=== PATIENT | female | born 1990 | race Caucasian/White ===

== ENCOUNTER → 2017-09-23 | Outpatient (CLI) | payer MEDICAID, SELFPAY | PROVIDERS: Visit Provider Emergency Medicine | DX: Z79.899 Other long term (current) drug therapy (principal) | CPT/HCPCS: 80305; 80364 ==

== ENCOUNTER → 2017-10-16 11:59 | Outpatient (REF) | payer MEDICAID, SELFPAY ==
[2017-10-16 16:41] LABS: Amphetamine/Metha Screen,Urine Positive ng/mL (<1000); Barbiturates Screen,Urine Negative ng/mL (<200); Benzodiazepines Screen,Urine Positive ng/mL (200); Cannabinoid Screen,Urine Negative ng/mL (<50); Cocaine Screen,Urine Positive ng/g (<300); Methadone Screen,Urine Negative ng/mL (<300); Opiate Screen,Urine Positive ng/mL (<300); Phencyclidine Screen,Urine Negative ng/mL (<25)
== END ==
LOC: LAB 11:59
PROVIDERS: Visit Provider Emergency Medicine
DX: Z79.891 Long term (current) use of opiate analgesic (principal)
CPT/HCPCS: 80305

== ENCOUNTER → 2017-10-30 16:39 | Outpatient (REF) | payer MEDICAID, SELFPAY | LOC: LAB 16:39 | PROVIDERS: Visit Provider Emergency Medicine | DX: L98.9 Disorder of the skin and subcutaneous tissue, unspecified (principal) | CPT/HCPCS: 87070; 87077; 87186; 87205 ==

== ENCOUNTER 2017-11-06 15:27 | Inpatient (IN) | payer MEDICAID, SELFPAY ==
[2017-11-06 16:01] VITALS: BP 123/74; PULSE 83; RESP 20; TEMP 36.4; O2SAT 99; BMI 23.7
[2017-11-06 18:15] LABS: Basophils % 0.5 % (0.1-2.0); Eosinophils # 0.5 K/mm3 (0.0-0.4); Eosinophils % 8.7 % (0.1-12.0); Hematocrit 45.8 % (37.0-47.0); Hemoglobin 14.6 g/dL (12.2-16.2); Lymphocytes % 39.7 K/mm3 (10-50); Mean Corpuscular HGB Conc 31.8 g/dL (31.8-35.4); Mean Corpuscular Volume 97.5 fl (81-99); Mean Platelet Volume 9.1 fl (7.4-10.4); Monocytes # 0.4 K/mm3 (0.1-1.0); Monocytes % 8.3 % (1.7-9.3); Neutrophils # 2.2 K/mm3 (1.8-7.8); Neutrophils % 42.8 % (37.0-80.0); Platelet Count 227 K/mm3 (142-424); Red Blood Count 4.69 M/mm3 (4.20-5.40); Red Cell Distribution Width 14.6 % (11.5-17.5); White Blood Count 5.1 K/mm3 (4.8-10.8)
[2017-11-06 18:17] LABS: Blood Urea Nitrogen 6 mg/dL (7-18); Carbon Dioxide 29 mmol/L (21.0-32.0); Creatinine Clearance Estimated 137 mL/min (0-300); Creatinine,Serum 0.55 mg/dL (0.55-1.02); Estimated Glomerular Filt Rate 132 ml/min (>60); GFR (African American) 159 ML/MIN (>60); Glucose 111 mg/dL (74-106)
[2017-11-06 19:03] LABS: Anion Gap 10.1 mEq/L (5-15); Chloride 103 mmol/L (98-107); Potassium 4.1 mmoL/L (3.5-5.1); Sodium 138 mmol/L (136-145)
--- NOTE | 2017-11-06 19:03 | PC.NURSE ---
Bedside report given to Sunita Urban RN
[2017-11-06 20:00] VITALS: BP 120/63; PULSE 64; RESP 18; TEMP 36.7; O2SAT 97
--- NOTE | 2017-11-07 03:25 | PC.NURSE ---
LAYING IN BED RESTING AT THIS TIME. SIGNIFICANT OTHER AT BEDSIDE. HAS HAD MORPHINE ONE TIME THUS FAR INTO SHIFT. PATIENT AND MALE FRIEND HAVE BEEN INTO THE [facility] REQUESTING DRINKS AND SNACKS SEVERAL TIMES. HAS BEEN SLEEPING THE LAST ROUNDS. LUNGS ARE CLEAR, RESP EVEN AND NONLABORED. HAS NOT COMPLAINED OF PAIN SINCE THE DOSE OF MORPHINE. IV IS PATENT, DENIED ANY NEEDS AT THIS TIME. BED LOCKED IN LOW POSITION, SIDE RALES UP X 2. CALL LIGHT WITHIN REACH. ENCOURAGED TO CALL OUT IF NEEDS. WILL CONTINUE TO MONITOR.
[2017-11-07 04:00] VITALS: BP 104/59; PULSE 59; RESP 16; TEMP 36.7; O2SAT 96
[2017-11-07 07:59] VITALS: BP 96/55; PULSE 72; RESP 20; TEMP 36.8; O2SAT 98
[2017-11-07 08:00] VITALS: PULSE 72; RESP 14; O2SAT 98
[2017-11-07 08:57] VITALS: BP 105/66; RESP 16
--- NOTE | 2017-11-07 09:36 | HMH.HP ---
*Admission Date: 11/06/17 *Chief complaint: groin infection *History of present illness: this wf with ongoing groin infection and had op i/d and was on abx which correlated with her culture- pt reports ongoing pain and has fever at home and dec po intake and energy and required admit for iv abx- she has required this in the past - [facility] History I have reviewed the patient's past medical history: Yes Medical History: Reports:: Cancer (cervical cancer cells), MRSA (abscess), Valvular Heart Disease (Mitral Valve Prolapse) Denies:: Diabetes Mellitus Type 1, Diabetes Mellitus Type 2 Laterality Cases: Left: Other, Bilateral: Tonsillectomy Other Surgeries: Yes: Colonoscopy, Dilation and Curettage, EGD, Other (LESIONS REMOVED) Amputation: No Fractures: No - *Social History Educational Level: Attended College Smoking Status: Current every day smoker Tobacco Type: cigarettes # Packs/Day (cigarettes): 1 Alcohol Intake: former Alcohol Intake Frequency:: holidays/special occasions only Substance Use Type: former substance user Occupational Status: employed Housing: house Household Members: children, other - Psychiatric History Expresses thoughts of harming self/others: None Suicide Plan Description: No Plan *Family Hx:: Bleeding Disorder, Cancer, Coronary Artery Disease, Diabetes, Hyperlipidemia, Hypertension, Stroke, Thyroid Disorder, Tuberculosis Review of Systems - Review of Systems Review of systems:: pertinent systems reviewed and negative unless documented below - Constitutional Reports fever(s), Reports lack of energy - Eyes Denies change in vision - ENT Denies throat swelling, Denies dizziness - *Cardiovascular Reports chest pain at rest, Reports chest pain with activity - *Respiratory Denies chest congestion, Denies cough, Denies coughing up blood - *Gastrointestinal Reports nausea, Reports vomiting, Denies abdominal pain - *Genitourinary Denies blood in urine - *Musculoskeletal Denies joint pain, Denies joint swelling - Integumentary/Breasts Reports rash - *Neurologic Denies tingling/numbness/burning sensations, Denies seizure-like activity - Psychiatric Reports anxiety - Endocrine Denies cold intolerance, Denies increased thirst - Hematologic/Lymphatic Denies easy bleeding Meds Home Medications Medication Instructions Recorded Confirmed Type tizanidine 4 mg capsule 4 mg PO QHS cap 10/16/17 11/06/17 History Dextroamphetamine/Amphetamine 20 mg PO BID 11/06/17 11/06/17 History [Dextroamp-Amphetamin 20 mg Tab] Minocycline HCl [Minocin 100mg 100 mg PO BID 11/06/17 11/06/17 History capsule] Oxycodone HCl/Acetaminophen 1 tab PO BID 11/06/17 11/06/17 History [Percocet 7.5/325mg tablet] levoFLOXacin [Levaquin 500mg 500 mg PO Q24H 11/06/17 11/06/17 History tab] Allergies Allergy/AdvReac Type Severity Reaction Status Date / Time bacitracin Allergy Mild Hives Verified 11/06/17 16:24 [From Neosporin ([id number]-[id number])] neomycin Allergy Mild Hives Verified 11/06/17 16:24 [From Neosporin (ycm-pkk-cuxlz)] polymyxin B Allergy Mild Hives Verified 11/06/17 16:24 [From Neosporin (dic-efg-nondx)] sulfamethoxazole Allergy Mild Hives Verified 11/06/17 16:24 [From BACTRIM] trimethoprim [From BACTRIM] Allergy Mild Hives Verified 11/06/17 16:24 Exam Vital signs and Labs for Last 24 Hours: Temp Pulse Resp BP Pulse Ox 98.2 F 72 16 105/66 98 11/07/17 07:59 11/07/17 07:59 11/07/17 08:57 11/07/17 08:57 11/07/17 07:59 Laboratory Results - last 24 hr 11/06/17 17:50: WBC 5.1, RBC 4.69, Hgb 14.6, Hct 45.8, MCV 97.5, MCH 31.0, MCHC 31.8, RDW 14.6, Plt Count 227, MPV 9.1, Neut % (Auto) 42.8, Lymph % (Auto) 39.7, [place] % (Auto) 8.3, Eos % (Auto) 8.7, Baso % (Auto) 0.5, Neut # (Auto) 2.2, Lymph # (Auto) 2.0, [place] # (Auto) 0.4, Eos # (Auto) 0.5 H, Baso # (Auto) 0.0 11/06/17 17:50: Sodium 138, Potassium 4.1, Chloride 103, Carbon Dioxi
--- NOTE | 2017-11-07 09:39 | P.HP_ITS ---
*Admission Date: 11/06/17 *Chief complaint: groin infection *History of present illness: this wf with ongoing groin infection and had op i/d and was on abx which correlated with her culture- pt reports ongoing pain and has fever at home and dec po intake and energy and required admit for iv abx- she has required this in the past - [facility] History I have reviewed the patient's past medical history: Yes Medical History: Reports:: Cancer (cervical cancer cells), MRSA (abscess), Valvular Heart Disease (Mitral Valve Prolapse) Denies:: Diabetes Mellitus Type 1, Diabetes Mellitus Type 2 Laterality Cases: Left: Other, Bilateral: Tonsillectomy Other Surgeries: Yes: Colonoscopy, Dilation and Curettage, EGD, Other (LESIONS REMOVED) Amputation: No Fractures: No - *Social History Educational Level: Attended College Smoking Status: Current every day smoker Tobacco Type: cigarettes # Packs/Day (cigarettes): 1 Alcohol Intake: former Alcohol Intake Frequency:: holidays/special occasions only Substance Use Type: former substance user Occupational Status: employed Housing: house Household Members: children, other - Psychiatric History Expresses thoughts of harming self/others: None Suicide Plan Description: No Plan *Family Hx:: Bleeding Disorder, Cancer, Coronary Artery Disease, Diabetes, Hyperlipidemia, Hypertension, Stroke, Thyroid Disorder, Tuberculosis Review of Systems - Review of Systems Review of systems:: pertinent systems reviewed and negative unless documented below - Constitutional Reports fever(s), Reports lack of energy - Eyes Denies change in vision - ENT Denies throat swelling, Denies dizziness - *Cardiovascular Reports chest pain at rest, Reports chest pain with activity - *Respiratory Denies chest congestion, Denies cough, Denies coughing up blood - *Gastrointestinal Reports nausea, Reports vomiting, Denies abdominal pain - *Genitourinary Denies blood in urine - *Musculoskeletal Denies joint pain, Denies joint swelling - Integumentary/Breasts Reports rash - *Neurologic Denies tingling/numbness/burning sensations, Denies seizure-like activity - Psychiatric Reports anxiety - Endocrine Denies cold intolerance, Denies increased thirst - Hematologic/Lymphatic Denies easy bleeding Meds Home Medications Medication Instructions Recorded Confirmed Type tizanidine 4 mg capsule 4 mg PO QHS cap 10/16/17 11/06/17 History Dextroamphetamine/Amphetamine 20 mg PO BID 11/06/17 11/06/17 History [Dextroamp-Amphetamin 20 mg Tab] Minocycline HCl [Minocin 100mg 100 mg PO BID 11/06/17 11/06/17 History capsule] Oxycodone HCl/Acetaminophen 1 tab PO BID 11/06/17 11/06/17 History [Percocet 7.5/325mg tablet] levoFLOXacin [Levaquin 500mg 500 mg PO Q24H 11/06/17 11/06/17 History tab] Allergies Allergy/AdvReac Type Severity Reaction Status Date / Time bacitracin Allergy Mild Hives Verified 11/06/17 16:24 [From Neosporin (pzh-vrj-mrsaw)] neomycin Allergy Mild Hives Verified 11/06/17 16:24 [From Neosporin ([id number]-ppa-btcqa)] polymyxin B Allergy Mild Hives Verified 11/06/17 16:24 [From Neosporin ([id number]-bbq-[id number])] sulfamethoxazole Allergy Mild Hives Verified 11/06/17 16:24 [From BACTRIM] trimethoprim [From BACTRIM] Allergy Mild Hives Verified 11/06/17 16:24
--- NOTE | 2017-11-07 11:26 | P.CONPHA_ITS ---
- Pharmacy Consult Date: 11/07/17 Time: 11:24 Referring provider: DR. OBRIEN Reason for Consult:: VANCOMYCIN DOSING Allergies and ADEs:: Allergies Allergy/AdvReac Type Severity Reaction Status Date / Time bacitracin Allergy Mild Hives Verified 11/06/17 16:24 [From Neosporin (ogl-zso-jrkax)] neomycin Allergy Mild Hives Verified 11/06/17 16:24 [From Neosporin (pxa-ndu-xetot)] polymyxin B Allergy Mild Hives Verified 11/06/17 16:24 [From Neosporin (dzg-oot-zvrme)] sulfamethoxazole Allergy Mild Hives Verified 11/06/17 16:24 [From BACTRIM] trimethoprim [From BACTRIM] Allergy Mild Hives Verified 11/06/17 16:24 Home Medications:: Home Medications Medication Instructions Recorded Confirmed Type tizanidine 4 mg capsule 4 mg PO QHS cap 10/16/17 11/06/17 History Dextroamphetamine/Amphetamine 20 mg PO BID 11/06/17 11/06/17 History [Dextroamp-Amphetamin 20 mg Tab] Minocycline HCl [Minocin 100mg 100 mg PO BID 11/06/17 11/06/17 History capsule] Oxycodone HCl/Acetaminophen 1 tab PO BID 11/06/17 11/06/17 History [Percocet 7.5/325mg tablet] levoFLOXacin [Levaquin 500mg 500 mg PO Q24H 11/06/17 11/06/17 History tab] Height: 1.55 m Weight: 56.926 kg Laboratory Results:: Laboratory Results - last 24 hr 11/06/17 17:50: WBC 5.1, RBC 4.69, Hgb 14.6, Hct 45.8, MCV 97.5, MCH 31.0, MCHC 31.8, RDW 14.6, Plt Count 227, MPV 9.1, Neut % (Auto) 42.8, Lymph % (Auto) 39.7 , [place] % (Auto) 8.3, Eos % (Auto) 8.7, Baso % (Auto) 0.5, Neut # (Auto) 2.2, Lymph # (Auto) 2.0, [place] # (Auto) 0.4, Eos # (Auto) 0.5 H, Baso # (Auto) 0.0 11/06/17 17:50: Sodium 138, Potassium 4.1, Chloride 103, Carbon Dioxide 29, Anion Gap 10.1, BUN 6 L, Creatinine 0.55, Estimated Creat Clear 137, Estimated GFR 132, Est GFR ( Amer) 159, Glucose 111 H Medical History: Reports:: Cancer (cervical cancer cells), MRSA (abscess), Valvular Heart Disease (Mitral Valve Prolapse) Denies:: Diabetes Mellitus Type 1, Diabetes Mellitus Type 2 Assessment and Plan (1) Cellulitis Current visit: Yes Status: Acute Category: Medical Code(s): L03.90 - Cellulitis, unspecified - Assessment and plan all Dx Assessment and Plan for all problems:: BASED ON PATIENT FACTORS, RECOMMEND VANCOMYCIN 1 GM IV Q8H. WILL OBTAIN VANCOMYCIN TROUGH LEVEL TONIGHT PRIOR TO 4TH DOSE. PHARMACY WILL FOLLOW DAILY AND ADJUST APPROPRIATE.
--- NOTE | 2017-11-07 13:28 | P.CONPHA_ITS ---
[facility] Pharmacy VTE Monitoring - Patient Demographics Admission date: 11/06/17 Report Date: 11/07/17 Time: 13:28 Allergies/Adverse Reactions: Patient Allergies bacitracin [From Neosporin (kum-ahy-nvvnb)] Allergy (Mild, Verified 11/06/17 16: 24) Hives neomycin [From Neosporin (sqv-ytu-eqzkk)] Allergy (Mild, Verified 11/06/17 16:24 ) Hives polymyxin B [From Neosporin (gpk-ekp-sawgy)] Allergy (Mild, Verified 11/06/17 16 :24) Hives sulfamethoxazole [From BACTRIM] Allergy (Mild, Verified 11/06/17 16:24) Hives trimethoprim [From BACTRIM] Allergy (Mild, Verified 11/06/17 16:24) Hives Height: 1.55 m Weight: 56.926 kg Patient Problems: Current Active Problems Cellulitis (Acute) - VTE Risk Labs: VTE Related Lab Results Hgb 14.6 g/dL (12.2-16.2) 11/06/17 17:50 Hct 45.8 % (37.0-47.0) 11/06/17 17:50 Plt Count 227 K/mm3 (142-424) 11/06/17 17:50 BUN 6 mg/dL (7-18) L 11/06/17 17:50 Creatinine 0.55 mg/dL (0.55-1.02) 11/06/17 17:50 Estimated Creat Clear 137 mL/min (0-300) 11/06/17 17:50 Was VTE Risk Assessment Performed: Yes VTE Score: 2 VTE Risk Level: Very Low Risk - Prophylaxis VTE Prophylaxis Ordered?: Yes Types of VTE Prophylaxis: TEDS Knee High Location of Applied Device: Bilateral Lower Extremeties
[2017-11-07 14:25] LABS: Erythrocyte Sedimentation Rate 5 mm/hr (0-20)
[2017-11-07 16:57] VITALS: BP 93/39; PULSE 60; RESP 18; TEMP 36.9; O2SAT 93
--- NOTE | 2017-11-07 18:11 | PC.NURSE ---
Lungs clear, bowel sounds active x4. Mild erythema noted to groin area. Pt has been treated for pain per mar q4hrs. She has ambulated around her room independently. Friend has been at bedside. Appetite is good. Will continue to monitor.
--- NOTE | 2017-11-07 19:15 | PC.NURSE ---
PT FULL CODE, REPORT FROM SARAH
[2017-11-07 20:00] VITALS: BP 146/71; PULSE 62; RESP 16; TEMP 36.8; O2SAT 96
[2017-11-07 20:19] LABS: Vancomycin,Trough 14.6 mcg/ml (10.0-20.0)
[2017-11-08 04:00] VITALS: BP 115/65; PULSE 63; RESP 16; TEMP 37; O2SAT 96
--- NOTE | 2017-11-08 04:47 | PC.NURSE ---
PT SLEPT LONG INTERVALS. PAIN MED GIVEN X2 AND PHENERGAN FOR NAUSEA X1 OF THIS TIME. AT BEDSIDE. ABSCESS ON LEFT GROIN REMAINS RED, WARM TO TOUCH, ALSO RED AREA ON MID-LOWER ABD AREA. PT STATES PLAN IS PROBABLY CASE AT BEDSIDE PER DR MOSQUEDA, MAYBE EVEN TODAY. IV SECURE AND PATENT. VANCOMYCIN TROUGH LEVEL ACCEPTABLE AND PM DOSE WAS GIVEN INSTRUCTED PER PHARMACIST, IESHA HINSON. 4AM DOSE VANCOMYCIN CURRENTLY INFUSING. NO OTHER COMPLAINTS REPORTED. PT STABLE. WILL CONTINUE TO MONITOR. REPORT TO BE GIVEN TO ONCOMING NURSE.
--- NOTE | 2017-11-08 07:42 | PC.NURSE ---
Received bedside report from Jocelyn Parra RN
[2017-11-08 07:48] VITALS: BP 116/66; PULSE 58; RESP 18; TEMP 37.1; O2SAT 97
--- NOTE | 2017-11-08 12:53 | HMH.DCSUM ---
General - General Admission date: 11/06/17 Discharge date: 11/08/17 HPI HPI: this wf with ongoing groin infection and had op i/d and was on abx which correlated with her culture- pt reports ongoing pain and has fever at home and dec po intake and energy and required admit for iv abx- she has required this in the past - Objective Vital signs: Temp Pulse Resp BP Pulse Ox 98.8 F 58 L 18 116/66 97 11/08/17 07:48 11/08/17 07:48 11/08/17 07:48 11/08/17 07:48 11/08/17 07:48 no acute distress - *Routine HEENT Exam Head: Present: normocephalic Eye: Present: EOMI, PERRL ENT: Present: mucous membranes moist - *Routine Neck Exam Present: supple - *Routine Respiratory Exam Present: CTA bilaterally - *Routine Cardiovascular Exam Present: RRR - *Routine Abdominal Exam Present: soft - *Routine Extremities Exam Present: full ROM - *Routine Skin Exam Comments: skin lesion improved - *Routine Neurological Exam Present: alert, oriented X3, CN II-XII intact - Routine Psychiatric Exam Present: normal affect Hospital Course Hospital Course: pt improved with iv abx which showed clincally signs of improvement and pt reports feeling better Results Labs on day of discharge: Labs from last 24 hours 11/07/17 11/07/17 19:29 12:03 ESR 5 Vancomycin Trough 14.6 Preliminary micro results at discharge 11/06/17 15:41 Blood Culture - Preliminary Blood NO GROWTH AFTER 24 HOURS 11/06/17 17:50 Blood Culture - Preliminary Blood NO GROWTH AFTER 24 HOURS DS: Diagnosis - Discharge Diagnosis (1) Cellulitis Status: Acute Meds Home Medications Medication Instructions Recorded Confirmed Type tizanidine 4 mg capsule 4 mg PO QHS cap 10/16/17 11/06/17 History Dextroamphetamine/Amphetamine 20 mg PO BID 11/06/17 11/06/17 History [Dextroamp-Amphetamin 20 mg Tab] Minocycline HCl [Minocin 100mg 100 mg PO BID 11/06/17 11/06/17 History capsule] Oxycodone HCl/Acetaminophen 7.5 - 325 mg PO BID 11/06/17 11/07/17 History [Percocet 7.5/325mg tablet] levoFLOXacin [Levaquin 500mg 500 mg PO Q24H 11/06/17 11/06/17 History tab] Clindamycin HCl [Clindamycin 300mg 300 mg PO TID 11/07/17 11/07/17 History Cap] Allergies Allergy/AdvReac Type Severity Reaction Status Date / Time bacitracin Allergy Mild Hives Verified 11/06/17 16:24 [From Neosporin (esu-kfl-nmfva)] neomycin Allergy Mild Hives Verified 11/06/17 16:24 [From Neosporin (dgy-aya-rgxjr)] polymyxin B Allergy Mild Hives Verified 11/06/17 16:24 [From Neosporin (xll-nkb-rjguj)] sulfamethoxazole Allergy Mild Hives Verified 11/06/17 16:24 [From BACTRIM] trimethoprim [From BACTRIM] Allergy Mild Hives Verified 11/06/17 16:24 Discharge Plan - Patient Discharge Instructions ACTIVITY: Continue current activity DIET: continue same diet Additional Instructions: see pcp for follow up - Follow up Plan Disposition: Home, Self-Group Home Medications: Home Medications Medication Instructions Recorded Confirmed Type tizanidine 4 mg capsule 4 mg PO QHS cap 10/16/17 11/06/17 History Dextroamphetamine/Amphetamine 20 mg PO BID 11/06/17 11/06/17 History [Dextroamp-Amphetamin 20 mg Tab] Minocycline HCl [Minocin 100mg 100 mg PO BID 11/06/17 11/06/17 History capsule] Oxycodone HCl/Acetaminophen 7.5 - 325 mg PO BID 11/06/17 11/07/17 History [Percocet 7.5/325mg tablet] levoFLOXacin [Levaquin 500mg 500 mg PO Q24H 11/06/17 11/06/17 History tab] Clindamycin HCl [Clindamycin 300mg 300 mg PO TID 11/07/17 11/07/17 History Cap] Prescriptions/Medication Reconciliation: Continue tizanidine 4 mg capsule 4 mg PO QHS cap Minocycline HCl [Minocin 100mg capsule] 100 mg PO BID Dextroamphetamine/Amphetamine [Dextroamp-Amphetamin 20 mg Tab] 20 mg PO BID Oxycodone HCl/Acetaminophen [Percocet 7.5/325mg tablet] 7.5 -
--- NOTE | 2017-11-08 12:58 | P.DS_ITS ---
General - General Admission date: 11/06/17 Discharge date: 11/08/17 HPI HPI: this wf with ongoing groin infection and had op i/d and was on abx which correlated with her culture- pt reports ongoing pain and has fever at home and dec po intake and energy and required admit for iv abx- she has required this in the past - Objective Vital signs: Temp Pulse Resp BP Pulse Ox 98.8 F 58 L 18 116/66 97 11/08/17 07:48 11/08/17 07:48 11/08/17 07:48 11/08/17 07:48 11/08/17 07:48 no acute distress - *Routine HEENT Exam Head: Present: normocephalic Eye: Present: EOMI, PERRL ENT: Present: mucous membranes moist - *Routine Neck Exam Present: supple - *Routine Respiratory Exam Present: CTA bilaterally - *Routine Cardiovascular Exam Present: RRR - *Routine Abdominal Exam Present: soft - *Routine Extremities Exam Present: full ROM - *Routine Skin Exam Comments: skin lesion improved - *Routine Neurological Exam Present: alert, oriented X3, CN II-XII intact - Routine Psychiatric Exam Present: normal affect Hospital Course Hospital Course: pt improved with iv abx which showed clincally signs of improvement and pt reports feeling better Results Labs on day of discharge: Labs from last 24 hours 11/07/17 11/07/17 19:29 12:03 ESR 5 Vancomycin Trough 14.6 Preliminary micro results at discharge 11/06/17 15:41 Blood Culture - Preliminary Blood NO GROWTH AFTER 24 HOURS 11/06/17 17:50 Blood Culture - Preliminary Blood NO GROWTH AFTER 24 HOURS DS: Diagnosis - Discharge Diagnosis (1) Cellulitis Status: Acute Meds Home Medications Medication Instructions Recorded Confirmed Type tizanidine 4 mg capsule 4 mg PO QHS cap 10/16/17 11/06/17 History Dextroamphetamine/Amphetamine 20 mg PO BID 11/06/17 11/06/17 History [Dextroamp-Amphetamin 20 mg Tab] Minocycline HCl [Minocin 100mg 100 mg PO BID 11/06/17 11/06/17 History capsule] Oxycodone HCl/Acetaminophen 7.5 - 325 mg PO BID 11/06/17 11/07/17 History [Percocet 7.5/325mg tablet] levoFLOXacin [Levaquin 500mg 500 mg PO Q24H 11/06/17 11/06/17 History tab] Clindamycin HCl [Clindamycin 300mg 300 mg PO TID 11/07/17 11/07/17 History Cap] Allergies Allergy/AdvReac Type Severity Reaction Status Date / Time bacitracin Allergy Mild Hives Verified 11/06/17 16:24 [From Neosporin (cuh-ofl-kwmeo)] neomycin Allergy Mild Hives Verified 11/06/17 16:24 [From Neosporin (rqu-jzs-llnak)] polymyxin B Allergy Mild Hives Verified 11/06/17 16:24 [From Neosporin (qcb-uzu-lmkpx)] sulfamethoxazole Allergy Mild Hives Verified 11/06/17 16:24 [From BACTRIM] trimethoprim [From BACTRIM] Allergy Mild Hives Verified 11/06/17 16:24 Discharge Plan - Patient Discharge Instructions ACTIVITY: Continue current activity DIET: continue same diet Additional Instructions: see pcp for follow up - Follow up Plan Disposition: Home, Self-Intermediate Medications: Home Medications Medication Instructions Recorded Confirmed
--- NOTE | 2017-11-08 14:42 | PC.NURSE ---
1400 - Reviewed DC instructions with pt and instructed pt to call MD office and make her follow up appointment on Thursday. Pt verbalizes understanding of all discharge instructions. Rx given to patient. 1415 - Escorted pt off floor with her . Pt ambulated. Pt denied any c/o at this time. Pt was A&Ox3 in NAD upon discharge from Room 204 this afternoon.
== END 2017-11-08 14:15 | disposition home or self-care (01) | DRG 603 ==
PROVIDERS: Family Medicine; Admitting Provider Emergency Medicine; PCP Emergency Medicine; Visit Provider Emergency Medicine
DX: L03.314 Cellulitis of groin (principal); F17.210 Nicotine dependence, cigarettes, uncomplicated; I34.1 Nonrheumatic mitral (valve) prolapse; Z85.41 Personal history of malignant neoplasm of cervix uteri; Z86.14 Personal history of Methicillin resistant Staphylococcus aureus infection; Z80.9 Family history of malignant neoplasm, unspecified; Z82.49 Family history of ischemic heart disease and other diseases of the circulatory system; Z83.3 Family history of diabetes mellitus; Z83.49 Family history of other endocrine, nutritional and metabolic diseases; Z82.3 Family history of stroke; Z83.1 Family history of other infectious and parasitic diseases; Z83.2 Family history of diseases of the blood and blood-forming organs and certain disorders involving the immune mechanism; Z79.891 Long term (current) use of opiate analgesic; Z79.899 Other long term (current) drug therapy; Z88.3 Allergy status to other anti-infective agents; Z91.09 Other allergy status, other than to drugs and biological substances
CPT/HCPCS: 36415; 80048; 80202; 85025; 85651; 87040; G0378; J2405; J3370

== ENCOUNTER 2017-11-29 18:33 | Emergency (ER) | payer MEDICAID, SELFPAY ==
[2017-11-29 18:47] VITALS: BP 127/79; PULSE 92; RESP 20; O2SAT 99; BMI 51.6
--- NOTE | 2017-11-29 18:49 | HMH.EDUTC ---
[facility] Disposition Clinical Impression: Abscess of groin, right Disposition: Home, Self-Care Condition on Discharge: Good Prescriptions: Fluconazole [Diflucan] 150 mg PO QODHS 6 Days #3 tab levoFLOXacin [Levaquin 500mg tab] 500 mg PO DAILY #10 tab Minocycline HCl 100 mg PO BID 10 Days #20 tab Referrals: Chandana Ron MD [Primary Care Provider] - Time of Disposition: 19:57 Medical Decision Making - Medical Records Medical records reviewed: Yes: I reviewed the patient's medical records. 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 Most recently was on Levaquin and minocycline based on culture. Took last dose 2 days ago and now it seems to be getting worse. Has had fever. Also thinks she may have a yeast infection. Onset (ago): day(s) (2) Location: pelvis, genitals Relieving factors: medication Exacerbating factors: none Treatments prior to arrival: other (Levaquin, minocycline) - Related Data Home Medications Medication Instructions Recorded Confirmed tizanidine 4 mg capsule 4 mg PO QHS cap 10/16/17 11/06/17 Dextroamphetamine/Amphetamine 20 mg PO BID 11/06/17 11/06/17 [Dextroamp-Amphetamin 20 mg Tab] Minocycline HCl [Minocin 100mg 100 mg PO BID 11/06/17 11/06/17 capsule] Oxycodone HCl/Acetaminophen 7.5 - 325 mg PO BID 11/06/17 11/07/17 [Percocet 7.5/325mg tablet] levoFLOXacin [Levaquin 500mg 500 mg PO Q24H 11/06/17 11/06/17 tab] Previous Rx's Medication Instructions Recorded oxycodone ER 10 mg tablet,crush 10 mg PO Q12H #20 tab 11/13/17 resistant,extended release 12 hr Fluconazole [Diflucan] 150 mg PO QODHS 6 Days #3 tab 11/29/17 Minocycline HCl 100 mg PO BID 10 Days #20 tab 11/29/17 levoFLOXacin [Levaquin 500mg 500 mg PO DAILY #10 tab 11/29/17 tab] Allergies Allergy/AdvReac Type Severity Reaction Status Date / Time bacitracin Allergy Mild Hives Verified 11/06/17 16:24 [From Neosporin ([id number]-iqn-mjqgi)] neomycin Allergy Mild Hives Verified 11/06/17 16:24 [From Neosporin (lmw-pab-kskgp)] polymyxin B Allergy Mild Hives Verified 11/06/17 16:24 [From Neosporin (tih-bdw-vfdww)] sulfamethoxazole Allergy Mild Hives Verified 11/06/17 16:24 [From BACTRIM] trimethoprim [From BACTRIM] Allergy Mild Hives Verified 11/06/17 16:24 [facility] History I have reviewed the patient's past medical history: Yes Medical History: Reports:: Cancer (cervical cancer cells), MRSA (abscess), Valvular Heart Disease (Mitral Valve Prolapse) Denies:: Diabetes Mellitus Type 1, Diabetes Mellitus Type 2 Laterality Cases: Left: Other, Bilateral: Tonsillectomy Other Surgeries: Yes: Colonoscopy, Dilation and Curettage, EGD, Other (LESIONS REMOVED) Amputation: No Fractures: No - Social History Smoking Status: Current every day smoker Tobacco Type: cigarettes # Packs/Day (cigarettes): 1 Alcohol Intake: former Alcohol Intake Frequency:: holidays/special occasions only Substance Use Type: former substance user Occupational Status: employed Housing: house Household Members: children, other Family Hx:: Bleeding Disorder, Cancer, Coronary Artery Disease, Diabetes, Hyperlipidemia, Hypertension, Stroke, Thyroid Disorder, Tuberculosis ROS Obtained: Yes All systems reviewed & no additional complaints - Integumentary/Breasts Skin/Breast: Reports as per HPI Physical Exam - General General appearance: alert, in no apparent distress - Head Head exam: atraumatic, normocephalic, normal inspection - Eye Eye exam: Present: normal appearance, PERRL, EOMI - ENT ENT exam: Present: normal exam, normal oropharynx, mucous membranes moist, TM's normal bilaterally, normal external ear exam - Neck Neck exam: Present: normal inspecti
--- NOTE | 2017-11-29 18:53 | ED_ITS ---
[facility] Disposition Clinical Impression: Abscess of groin, right Disposition: Home, Self-Care Condition on Discharge: Good Prescriptions: Fluconazole [Diflucan] 150 mg PO QODHS 6 Days #3 tab levoFLOXacin [Levaquin 500mg tab] 500 mg PO DAILY #10 tab Minocycline HCl 100 mg PO BID 10 Days #20 tab Referrals: Chandana Ron MD [Primary Care Provider] - Time of Disposition: 19:57 Medical Decision Making - Medical Records Medical records reviewed: Yes: I reviewed the patient's medical records. 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 Most recently was on Levaquin and minocycline based on culture. Took last dose 2 days ago and now it seems to be getting worse. Has had fever. Also thinks she may have a yeast infection. Onset (ago): day(s) (2) Location: pelvis, genitals Relieving factors: medication Exacerbating factors: none Treatments prior to arrival: other (Levaquin, minocycline) - Related Data Home Medications Medication Instructions Recorded Confirmed tizanidine 4 mg capsule 4 mg PO QHS cap 10/16/17 11/06/17 Dextroamphetamine/Amphetamine 20 mg PO BID 11/06/17 11/06/17 [Dextroamp-Amphetamin 20 mg Tab] Minocycline HCl [Minocin 100mg 100 mg PO BID 11/06/17 11/06/17 capsule] Oxycodone HCl/Acetaminophen 7.5 - 325 mg PO BID 11/06/17 11/07/17 [Percocet 7.5/325mg tablet] levoFLOXacin [Levaquin 500mg 500 mg PO Q24H 11/06/17 11/06/17 tab] Previous Rx's Medication Instructions Recorded oxycodone ER 10 mg tablet,crush 10 mg PO Q12H #20 tab 11/13/17 resistant,extended release 12 hr Fluconazole [Diflucan] 150 mg PO QODHS 6 Days #3 tab 11/29/17 Minocycline HCl 100 mg PO BID 10 Days #20 tab 11/29/17 levoFLOXacin [Levaquin 500mg 500 mg PO DAILY #10 tab 11/29/17 tab] Allergies Allergy/AdvReac Type Severity Reaction Status Date / Time bacitracin Allergy Mild Hives Verified 11/06/17 16:24 [From Neosporin ([id number])] neomycin Allergy Mild Hives Verified 11/06/17 16:24 [From Neosporin ([id number]-[id number]-[id number])] polymyxin B Allergy Mild Hives Verified 11/06/17 16:24 [From Neosporin ([id number]-sgh-[id number])] sulfamethoxazole Allergy Mild Hives Verified 11/06/17 16:24 [From BACTRIM] trimethoprim [From BACTRIM] Allergy Mild Hives Verified 11/06/17 16:24 [facility] History I have reviewed the patient's past medical history: Yes Medical History: Reports:: Cancer (cervical cancer cells), MRSA (abscess), Valvular Heart Disease (Mitral Valve Prolapse) Denies:: Diabetes Mellitus Type 1, Diabetes Mellitus Type 2 Laterality Cases: Left: Other, Bilateral: Tonsillectomy Other Surgeries: Yes: Colonoscopy, Dilation and Curettage, EGD, Other (LESIONS REMOVED) Amputation: No Fractures: No - Social History Smoking Status: Current every day smoker Tobacco Type: cigarettes # Packs/Day (cigarettes): 1 Alcohol Intake: former Alcohol Intake Frequency:: holidays/special occasions only Substance Use Type: former substance user Occupational Status: employed Housing: house Household Members: children, other Family Hx:
[2017-11-29 19:03] VITALS: BP 127/79; PULSE 92; RESP 20; TEMP 37.1; O2SAT 99
== END 2017-11-29 19:09 | disposition home or self-care (01) ==
PROVIDERS: Emergency Provider Physician Assistant; Family Provider Emergency Medicine; PCP Emergency Medicine
DX: L02.214 Cutaneous abscess of groin (principal); Z86.14 Personal history of Methicillin resistant Staphylococcus aureus infection; Z88.2 Allergy status to sulfonamides; Z79.899 Other long term (current) drug therapy
CPT/HCPCS: 99203

== ENCOUNTER → 2017-12-25 10:30 | Outpatient (REF) | payer MEDICAID, SELFPAY ==
[2017-12-26 10:11] LABS: Hep A Ab, IgM Negative (Negative); Hepatitis B Core Antibody IgM Negative (Negative); Hepatitis B Surface Antigen Negative (Negative)
[2017-12-26 18:38] LABS: Hepatitis C Antibody >11.0 s/co ratio (0.0-0.9)
== END ==
LOC: LAB 10:30
PROVIDERS: Visit Provider Emergency Medicine
DX: R53.83 Other fatigue (principal)
CPT/HCPCS: 80074

== ENCOUNTER 2018-02-17 13:05 | Outpatient (CLI) | payer MEDICAID, SELFPAY ==
[2018-02-17 13:45] VITALS: BMI 24.4
[2018-02-17 14:12] LABS: Anion Gap 13.2 mEq/L (5-15); Blood Urea Nitrogen 11 mg/dL (7-18); Carbon Dioxide 27 mmol/L (21.0-32.0); Chloride 102 mmol/L (98-107); Creatinine Clearance Estimated 119 mL/min (0-300); Creatinine,Serum 0.63 mg/dL (0.55-1.02); Estimated Glomerular Filt Rate 113 ml/min (>60); GFR (African American) 136 ML/MIN (>60); Glucose 88 mg/dL (74-106); Potassium 4.2 mmoL/L (3.5-5.1); Sodium 138 mmol/L (136-145)
[2018-02-17 14:16] LABS: Basophils # 0.1 K/mm3 (0-0.2); Basophils % 0.6 % (0.1-2.0); Eosinophils # 0.3 K/mm3 (0.0-0.4); Eosinophils % 2.8 % (0.1-12.0); Hematocrit 50.2 % (37.0-47.0); Lymphocytes # 3.3 K/mm3 (0.7-4.5); Lymphocytes % 35.2 K/mm3 (10-50); Mean Corpuscular HGB Conc 33.8 g/dL (31.8-35.4); Mean Corpuscular Hemoglobin 32.1 pg (27.0-31.2); Monocytes # 0.6 K/mm3 (0.1-1.0); Monocytes % 6.1 % (1.7-9.3); Neutrophils # 5.2 K/mm3 (1.8-7.8); Neutrophils % 55.3 % (37.0-80.0); Platelet Count 249 K/mm3 (142-424); Red Blood Count 5.29 M/mm3 (4.20-5.40); Red Cell Distribution Width 13.9 % (11.5-17.5); White Blood Count 9.3 K/mm3 (4.8-10.8)
--- NOTE | 2018-02-17 14:33 | P.CONPHA_ITS ---
- Pharmacy Consult Date: 02/17/18 Time: 14:31 Referring provider: DR. OBRIEN Reason for Consult:: VANCOMYCIN DOSING Allergies and ADEs:: Allergies Allergy/AdvReac Type Severity Reaction Status Date / Time bacitracin Allergy Mild Hives Verified 02/16/18 21:00 [From Neosporin ([id number]-[id number])] neomycin Allergy Mild Hives Verified 02/16/18 21:00 [From Neosporin (dvp-[id number]-[id number])] polymyxin B Allergy Mild Hives Verified 02/16/18 21:00 [From Neosporin (opf-koq-mhysx)] sulfamethoxazole Allergy Mild Hives Verified 02/16/18 21:00 [From BACTRIM] trimethoprim [From BACTRIM] Allergy Mild Hives Verified 02/16/18 21:00 Home Medications:: Home Medications Medication Instructions Recorded Confirmed Type Dextroamphetamine/Amphetamine 20 mg PO BID 02/16/18 02/16/18 History [Dextroamp-Amphetamin 20 mg Tab] Height: 1.52 m Weight: 56.699 kg Laboratory Results:: Laboratory Results - last 24 hr 02/17/18 13:55: WBC 9.3, RBC 5.29, Hgb 17.0 H, Hct 50.2 H, MCV 95.0, MCH 32.1 H , MCHC 33.8, RDW 13.9, Plt Count 249, MPV 9.0, Neut % (Auto) 55.3, Lymph % (Auto ) 35.2, [place] % (Auto) 6.1, Eos % (Auto) 2.8, Baso % (Auto) 0.6, Neut # (Auto) 5.2, Lymph # (Auto) 3.3, [place] # (Auto) 0.6, Eos # (Auto) 0.3, Baso # (Auto) 0.1 02/17/18 13:55: Sodium 138, Potassium 4.2, Chloride 102, Carbon Dioxide 27, Anion Gap 13.2, BUN 11, Creatinine 0.63, Estimated Creat Clear 119, Estimated GFR 113, Est GFR ( Amer) 136, Glucose 88 Medical History: Reports:: Cancer, MRSA, Valvular Heart Disease Denies:: Diabetes Mellitus Type 1, Diabetes Mellitus Type 2 Assessment and Plan - Assessment and plan all Dx Assessment and Plan for all problems:: BASED ON PATIENT'S FACTORS, RECOMMEND STARTING WITH VANCOMYCIN 1500 MG X1 DOSE TODAY, THEN VANCOMYCIN 1250 MG Q12H THEREAFTER FOR TOTAL OF 7 DAYS. PHARMACY WILL FOLLOW DAILY AND ADJUST APPROPRIATE. PAUL MARQUEZ, PHARMD
[2018-02-17 14:54] VITALS: BP 119/71; PULSE 94; RESP 18; TEMP 36.7; O2SAT 100
[2018-02-17 15:24] VITALS: BP 112/69; PULSE 91; RESP 18; O2SAT 98
[2018-02-17 15:54] VITALS: BP 109/69; PULSE 90; RESP 18; O2SAT 99
[2018-02-17 16:24] VITALS: BP 112/64; PULSE 89; RESP 18; O2SAT 98
[2018-02-17 16:54] VITALS: BP 115/67; PULSE 87; RESP 18; O2SAT 97
[2018-02-17 17:10] VITALS: BP 112/61; PULSE 85; RESP 18; O2SAT 98
== END 2018-02-17 17:15 | disposition home or self-care (01) ==
LOC: INF 13:42
PROVIDERS: Family Provider Emergency Medicine; PCP Emergency Medicine; Visit Provider Emergency Medicine
DX: L03.317 Cellulitis of buttock (principal)
CPT/HCPCS: 80048; 85025; 96365; 96366; J3370

== ENCOUNTER → 2018-02-18 08:00 | Outpatient (CLI) | payer MEDICAID, SELFPAY ==
[2018-02-18 08:36] VITALS: BMI 24.5
--- NOTE | 2018-02-18 08:38 | XR_ITS ---
XR chest portable PICC HISTORY: ITS.REASON: PICC line placement ORDERING PHYSICIAN: Chandana Ron MD PATIENT AGE: 27 years COMPARISON: 08/19/2017 FINDINGS: Left upper extremity PICC line has been placed. The tip is in good position in the region superior vena cava. Unremarkable cardiovascular structures with clear lungs. IMPRESSION: 1. Good position of left upper extremity PICC line. 2. No acute finding
[2018-02-18 09:41] VITALS: BP 122/64; PULSE 84; RESP 18; TEMP 36.6; O2SAT 98
[2018-02-18 10:11] VITALS: BP 119/67; PULSE 81; RESP 18; O2SAT 98
[2018-02-18 10:41] VITALS: BP 120/64; PULSE 87; RESP 18; O2SAT 97
[2018-02-18 11:11] VITALS: BP 116/68; PULSE 84; RESP 18; O2SAT 96
[2018-02-18 11:41] VITALS: BP 117/69; PULSE 85; RESP 18; O2SAT 97
== END ==
PROVIDERS: Family Provider Emergency Medicine; PCP Emergency Medicine; Visit Provider Emergency Medicine
DX: L03.317 Cellulitis of buttock (principal)
CPT/HCPCS: 36569; 71045; 96365; 96366; C1751; J3370

== ENCOUNTER → 2018-02-19 18:39 | Outpatient (CLI) | payer MEDICAID, SELFPAY ==
--- NOTE | 2018-02-19 19:11 | PC.NURSE ---
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 TERRA RETURNED CALL ASK ABOUT DOING TROUGH. STATES TO MOVE TO AM PRIOR TO INFUSION.
[2018-02-19 19:13] VITALS: BP 119/77; PULSE 96; RESP 18; O2SAT 99
[2018-02-19 21:11] VITALS: BP 109/68; PULSE 67; RESP 20; TEMP 37.1; O2SAT 97
[2018-02-19 21:13] VITALS: BP 109/68; PULSE 67; RESP 20; TEMP 37.1; O2SAT 97
[2018-02-25 21:09] LABS: Hepatitis C Genotype 1a (.)
== END ==
PROVIDERS: Family Provider Emergency Medicine; PCP Emergency Medicine; Visit Provider Emergency Medicine
DX: L03.317 Cellulitis of buttock (principal)
CPT/HCPCS: 87522; 96365; J3370

== ENCOUNTER → 2018-02-20 07:35 | Outpatient (CLI) | payer MEDICAID, SELFPAY ==
[2018-02-20 08:16] LABS: Vancomycin,Trough 3.7 mcg/ml (10.0-20.0)
== END ==
PROVIDERS: Family Provider Emergency Medicine; PCP Emergency Medicine; Visit Provider Emergency Medicine
DX: L03.317 Cellulitis of buttock (principal)
CPT/HCPCS: 80202

== ENCOUNTER → 2018-02-22 20:44 | Outpatient (REF) | payer MEDICAID, SELFPAY | LOC: LAB 20:44 | PROVIDERS: Visit Provider Emergency Medicine | DX: L98.9 Disorder of the skin and subcutaneous tissue, unspecified (principal) | CPT/HCPCS: 87070; 87077; 87186; 87205 ==

== ENCOUNTER → 2018-03-08 13:08 | Outpatient (REF) | payer MEDICAID, SELFPAY ==
[2018-03-08 21:57] LABS: Amphetamine/Metha Screen,Urine Negative ng/mL (<1000); Barbiturates Screen,Urine Negative ng/mL (<200); Benzodiazepines Screen,Urine Negative ng/mL (200); Cannabinoid Screen,Urine Negative ng/mL (<50); Cocaine Screen,Urine Negative ng/g (<300); Methadone Screen,Urine Negative ng/mL (<300); Opiate Screen,Urine Negative ng/mL (<300); Phencyclidine Screen,Urine Negative ng/mL (<25)
== END ==
LOC: LAB 13:08
PROVIDERS: Visit Provider Emergency Medicine
DX: Z79.899 Other long term (current) drug therapy (principal)
CPT/HCPCS: 80305

== ENCOUNTER 2018-03-26 15:40 | Observation (INO) ==
[2018-03-26 17:01] LABS: Basophils # 0.1 K/mm3 (0-0.2); Basophils % 0.7 % (0.1-2.0); Eosinophils # 0.2 K/mm3 (0.0-0.4); Eosinophils % 2.1 % (0.1-12.0); Hematocrit 46.1 % (37.0-47.0); Hemoglobin 16.1 g/dL (12.2-16.2); Lymphocytes # 3.1 K/mm3 (0.7-4.5); Lymphocytes % 41.9 K/mm3 (10-50); Mean Corpuscular HGB Conc 34.9 g/dL (31.8-35.4); Mean Corpuscular Volume 97.3 fl (81-99); Mean Platelet Volume 8.3 fl (7.4-10.4); Monocytes # 0.4 K/mm3 (0.1-1.0); Monocytes % 4.9 % (1.7-9.3); Neutrophils # 3.7 K/mm3 (1.8-7.8); Neutrophils % 50.3 % (37.0-80.0); Platelet Count 248 K/mm3 (142-424); Red Blood Count 4.74 M/mm3 (4.20-5.40); Red Cell Distribution Width 14.2 % (11.5-17.5); White Blood Count 7.3 K/mm3 (4.8-10.8)
[2018-03-26 17:11] LABS: Albumin Level 3.8 gm/dL (3.4-5.0); Anion Gap 13.9 mEq/L (5-15); Bilirubin,Total 0.6 mg/dL (0.2-1.0); Calcium 8.6 mg/dL (8.5-10.1); Potassium 3.9 mmoL/L (3.5-5.1); Total Protein,Serum 7.8 gm/dL (6.4-8.2)
[2018-03-26 17:20] LABS: Creatine Kinase 44 U/L (26-192)
--- NOTE | 2018-03-26 22:10 | History & Physical Report ---
*Admission Date: 03/26/18 *Chief complaint: skin lesions *History of present illness: this wf who has recurrent skin infection in groin and lower abd and gluteal area which has not improved sig with po abx - pt reports lesions as painful and has required pain meds also- she has had i/d in past - she also has 2 episodes of palpitation and near syncope over the last week- she has dec po intake and nausea - pt was admitted for iv abx and surg consult [facility] History I have reviewed the patient's past medical history: Yes Medical History: Reports:: Depression, Heart Murmur (AGE 12), Migraine, MRSA, Valvular Heart Disease Denies:: Cancer, Diabetes Mellitus Type 1, Diabetes Mellitus Type 2 Other Medical History: Reports: Sinus Problems Laterality Cases: Left: Other, Bilateral: Tonsillectomy Other Surgeries: Yes: Cholecystectomy, Colonoscopy, Dilation and Curettage, Diagnostic Lap, EGD, Other Amputation: No Fractures: Yes (LEFT ARM FRACTURE REPAIR.) - *Social History Educational Level: Completed High School Smoking Status: Current every day smoker Tobacco Type: cigarettes # Packs/Day (cigarettes): 1 Alcohol Intake: never Alcohol Intake Frequency:: holidays/special occasions only Substance Use Type: heroin, IV drugs, methamphetamine Occupational Status: unemployed Housing: house Household Members: family, children - Psychiatric History Expresses thoughts of harming self/others: None Suicide Plan Description: No Plan Pschychiatric History:: Reports:: Depression *Family Hx:: Anemia, Bleeding Disorder, Cancer, Coronary Artery Disease, Diabetes, Heart Attack, Hyperlipidemia, Hypertension, Stroke, Thyroid Disorder, Tuberculosis [employer]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 history: 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 Review of Systems - Review of Systems Review of systems:: pertinent systems reviewed and negative unless documented below - Constitutional Reports malaise, Denies fever(s) - Eyes Denies change in vision - ENT Denies sore throat - *Cardiovascular Denies chest pain - *Respiratory Denies cough - *Gastrointestinal Reports nausea, Reports vomiting - *Genitourinary Denies blood in urine - *Musculoskeletal Denies joint pain, Denies joint swelling, Denies neck pain - Integumentary/Breasts Reports boil, Reports lesions, Denies rash - *Neurologic Denies confusion, Denies sensory deficit - Psychiatric Denies anxiety Meds Home Medications Medication Instructions Recorded Confirmed Type doxycycline monohydrate 100 mg 100 mg PO 30 Days cap 03/23/18 History capsule Allergies Allergy/AdvReac Type Severity Reaction Status Date / Time bacitracin Allergy Mild Hives Verified 03/23/18 18:24 [From Neosporin ([id number]-[id number])] neomycin Allergy Mild Hives Verified 03/23/18 18:24 [From Neosporin ([id number]-skt-xplrx)] polymyxin B Allergy Mild Hives Verified 03/23/18 18:24 [From Neosporin ([id number]-ssf-gjyrb)] sulfamethoxazole Allergy Mild Hives Verified 03/23/18 18:24 [From BACTRIM] trimethoprim [From BACTRIM] Allergy Mild Hives Verified 03/23/18 18:24 Exam Vital signs and Labs for Last 24 Hours: Temp Pulse Resp BP Pulse Ox 98.4 F 107 H 18 123/51 98 03/26/18 19:49 03/26/18 19:49 03/26/18 19:49 03/26/18 19:49 03/26/18 19:49 Laboratory Results - last 24 hr 03/26/18 16:35: Sodium 136, Potassium 3.9, Chloride 102, Carbon Dioxide 24, Anion Gap 13.9, BUN 11, Creatinine 0.65, Estimated Creat Clear 117, Estimated GFR 109, Est GFR ( Amer) 131, Glucose 96, Calcium 8.6, Total Bilirubin 0.6, AST 93 H, ALT 258 H, Alkaline Phosphatase 116, Total Protein 7.8, Albumin 3.8, Globulin 4.0 H, Albumin/Globulin Ratio 1.0 L 03/26/18 16:35: Total Creatine Kinase 44, CK-MB (CK-2) 0.5, CK-MB (CK-2) Rel Index 1.1, Troponin I < 0.02 03/26/18 16:50: WBC 7.3, RBC 4.74, Hgb 16.1, Hct 46.1, MCV 97.3, MCH 34.0 H, MCHC 34.9, RDW 14.2, Plt Count 248, MPV 8.3, Neut % (Auto) 50.3, Lymph % (Auto) 41.9, [place] % (Auto) 4.9, Eos % (Auto) 2.1, Baso % (Auto) 0.7, Neut # (Auto) 3.7 , Lymph # (Auto) 3.1, [place] # (Auto) 0.4, Eos # (Auto) 0.2, Baso # (Auto) 0.1 I & O for Last 24 hours: Intake & Output 03/24/18 03/25/18 03/26/18 03/27/18 11:59 11:59 11:59 11:59 Intake Total 660 / 660 Balance 660 / 660 Weight 126 lb 6.009 oz - Constitutional no acute distress - *Routine HEENT Exam Head: Present: normocephalic Eye: Present: EOMI, PERRL ENT: Present: mucous membranes dry - *Routine Neck Exam Present: supple - *Routine Respiratory Exam Present: CTA bilaterally - *Routine Cardiovascular Exam Present: RRR. Absent: murmur - *Routine Abdominal Exam Present: soft - *Routine Extremities Exam Present: full ROM - *Routine Skin Exam Comments: scattered tender skin lesions groin and lower abd with no def abscess - *Routine Neurological Exam Present: alert, oriented X3, CN II-XII intact - Routine Psychiatric Exam Present: normal affect H&P: Result - Labs Labs: Short CBC 03/26/18 Range/Units 16:50 WBC 7.3 (4.8-10.8) K/mm3 Hgb 16.1 (12.2-16.2) g/dL Hct 46.1 (37.0-47.0) % Plt Count 248 (142-424) K/mm3 BMP 03/26/18 16:35 Sodium 136 Potassium 3.9 Chloride 102 Carbon Dioxide 24 BUN 11 Creatinine 0.65 Glucose 96 Calcium 8.6 Cardiac Enzymes 03/26/18 Range/Units 16:35 Total Creatine Kinase 44 (26-192) U/L CK-MB (CK-2) 0.5 (0.0-3.6) ng/ml Troponin I < 0.02 (0.00-0.06) ng/ml Liver Function 03/26/18 Range/Units 16:35 Total Bilirubin 0.6 (0.2-1.0) mg/dL AST 93 H (15-37) U/L ALT 258 H (12-78) U/L Alkaline Phosphatase 116 (46-116) U/L Albumin 3.8 (3.4-5.0) gm/dL Assessment and Plan (1) Cellulitis Current visit: No Status: Acute Qualifiers: Site of cellulitis: buttock Qualified Code(s): L03.317 - Cellulitis of buttock Category: Medical Code(s): L03.90 - Cellulitis, unspecified (2) Syncope, near Current visit: Yes Status: Acute Category: Medical Code(s): R55 - Syncope and collapse
--- NOTE | 2018-03-27 08:44 | Progress Note ---
Internal Medicine - PN: Subj *Date: 03/27/18 *Time: 08:42 Interval history: pt on abx this am - doing some better - discussed with dr hernandez Exam Vital signs and Labs for Last 24 Hours: Temp Pulse Resp BP Pulse Ox 97.0 F L 66 16 96/59 98 03/27/18 08:00 03/27/18 08:00 03/27/18 08:00 03/27/18 08:00 03/27/18 08:00 Laboratory Results - last 24 hr 03/26/18 16:35: Sodium 136, Potassium 3.9, Chloride 102, Carbon Dioxide 24, Anion Gap 13.9, BUN 11, Creatinine 0.65, Estimated Creat Clear 117, Estimated GFR 109, Est GFR ( Amer) 131, Glucose 96, Calcium 8.6, Total Bilirubin 0.6, AST 93 H, ALT 258 H, Alkaline Phosphatase 116, Total Protein 7.8, Albumin 3.8, Globulin 4.0 H, Albumin/Globulin Ratio 1.0 L 03/26/18 16:35: Total Creatine Kinase 44, CK-MB (CK-2) 0.5, CK-MB (CK-2) Rel Index 1.1, Troponin I < 0.02 03/26/18 16:50: WBC 7.3, RBC 4.74, Hgb 16.1, Hct 46.1, MCV 97.3, MCH 34.0 H, MCHC 34.9, RDW 14.2, Plt Count 248, MPV 8.3, Neut % (Auto) 50.3, Lymph % (Auto) 41.9, [place] % (Auto) 4.9, Eos % (Auto) 2.1, Baso % (Auto) 0.7, Neut # (Auto) 3.7 , Lymph # (Auto) 3.1, [place] # (Auto) 0.4, Eos # (Auto) 0.2, Baso # (Auto) 0.1 03/26/18 16:50: ESR 8 03/26/18 16:50: C-Reactive Protein < 0.2 03/26/18 22:40: Lactic Acid 1.4 I & O for Last 24 hours: Intake & Output 03/24/18 03/25/18 03/26/18 03/27/18 11:59 11:59 11:59 11:59 Intake Total 660 / 660 Output Total 300 / 300 Balance 360 / 360 Weight 126 lb 6.009 oz - Constitutional no acute distress - *Routine HEENT Exam Head: Present: normocephalic Eye: Present: EOMI, PERRL ENT: Present: mucous membranes dry - *Routine Neck Exam Present: supple - *Routine Respiratory Exam Absent: respiratory distress - *Routine Cardiovascular Exam Present: RRR - *Routine Abdominal Exam Present: soft - *Routine Extremities Exam Present: full ROM - *Routine Skin Exam Comments: lesions as noted - *Routine Neurological Exam Present: alert, oriented X3, CN II-XII intact - Routine Psychiatric Exam Present: normal affect Assessment and Plan (1) Cellulitis Current visit: No Status: Acute Qualifiers: Site of cellulitis: buttock Qualified Code(s): L03.317 - Cellulitis of buttock Category: Medical Code(s): L03.90 - Cellulitis, unspecified (2) Syncope, near Current visit: Yes Status: Acute Category: Medical Code(s): R55 - Syncope and collapse
--- NOTE | 2018-03-27 09:24 | Consult Report ---
*Admission Date: 03/26/18 *Chief complaint: abscesses *History of present illness: This is a 27-year-old female with a long history of multiple skin/subcutaneous abscesses who presents with concern regarding a left lower abdomen/pelvis abscess and right groin abscesses. She has required incision and drainage on multiple occasions over the past few years. Below is forwarded from her admission history and physical: this wf who has recurrent skin infection in groin and lower abd and gluteal area which has not improved sig with po abx - pt reports lesions as painful and has required pain meds also- she has had i/d in past - she also has 2 episodes of palpitation and near syncope over the last week- she has dec po intake and nausea - pt was admitted for iv abx and surg consult Review of Systems - Constitutional Denies anorexia, Denies chills - *Cardiovascular Denies chest pain - *Respiratory Denies cough - *Gastrointestinal Denies abdominal pain - *Neurologic Denies confusion, Denies sensory deficit - Hematologic/Lymphatic Denies easy bleeding [facility] History Medical History: Reports:: Depression, Heart Murmur (AGE 12), Migraine, MRSA, Valvular Heart Disease Denies:: Cancer, Diabetes Mellitus Type 1, Diabetes Mellitus Type 2 Other Medical History: Reports: Sinus Problems Laterality Cases: Left: Other, Bilateral: Tonsillectomy Other Surgeries: Yes: Cholecystectomy, Colonoscopy, Dilation and Curettage, Diagnostic Lap, EGD, Other Amputation: No Fractures: Yes (LEFT ARM FRACTURE REPAIR.) - *Social History Educational Level: Completed High School Smoking Status: Current every day smoker Tobacco Type: cigarettes # Packs/Day (cigarettes): 1 Alcohol Intake: never Alcohol Intake Frequency:: holidays/special occasions only Substance Use Type: heroin, IV drugs, methamphetamine Occupational Status: unemployed Housing: house Household Members: family, children - Psychiatric History Expresses thoughts of harming self/others: None Suicide Plan Description: No Plan Pschychiatric History:: Reports:: Depression *Family Hx:: Anemia, Bleeding Disorder, Cancer, Coronary Artery Disease, Diabetes, Heart Attack, Hyperlipidemia, Hypertension, Stroke, Thyroid Disorder, Tuberculosis [employer] history: 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 Meds Home Medications Medication Instructions Recorded Confirmed Type doxycycline monohydrate 100 mg 100 mg PO 30 Days cap 03/23/18 History capsule Allergies Allergy/AdvReac Type Severity Reaction Status Date / Time bacitracin Allergy Mild Hives Verified 03/23/18 18:24 [From Neosporin ([id number]-vwd-[id number])] neomycin Allergy Mild Hives Verified 03/23/18 18:24 [From Neosporin (hds-wqh-asffd)] polymyxin B Allergy Mild Hives Verified 03/23/18 18:24 [From Neosporin ([id number]-ckg-[id number])] sulfamethoxazole Allergy Mild Hives Verified 03/23/18 18:24 [From BACTRIM] trimethoprim [From BACTRIM] Allergy Mild Hives Verified 03/23/18 18:24 Exam Vital signs and Labs for Last 24 Hours: Temp Pulse Resp BP Pulse Ox 97.0 F L 66 16 96/59 98 03/27/18 08:00 03/27/18 08:00 03/27/18 08:00 03/27/18 08:00 03/27/18 08:00 Laboratory Results - last 24 hr 03/26/18 16:35: Sodium 136, Potassium 3.9, Chloride 102, Carbon Dioxide 24, Anion Gap 13.9, BUN 11, Creatinine 0.65, Estimated Creat Clear 117, Estimated GFR 109, Est GFR ( Amer) 131, Glucose 96, Calcium 8.6, Total Bilirubin 0.6, AST 93 H, ALT 258 H, Alkaline Phosphatase 116, Total Protein 7.8, Albumin 3.8, Globulin 4.0 H, Albumin/Globulin Ratio 1.0 L 03/26/18 16:35: Total Creatine Kinase 44, CK-MB (CK-2) 0.5, CK-MB (CK-2) Rel Index 1.1, Troponin I < 0.02 03/26/18 16:50: WBC 7.3, RBC 4.74, Hgb 16.1, Hct 46.1, MCV 97.3, MCH 34.0 H, MCHC 34.9, RDW 14.2, Plt Count 248, MPV 8.3, Neut % (Auto) 50.3, Lymph % (Auto) 41.9, [place] % (Auto) 4.9, Eos % (Auto) 2.1, Baso % (Auto) 0.7, Neut # (Auto) 3.7 , Lymph # (Auto) 3.1, [place] # (Auto) 0.4, Eos # (Auto) 0.2, Baso # (Auto) 0.1 03/26/18 16:50: ESR 8 03/26/18 16:50: C-Reactive Protein < 0.2 03/26/18 22:40: Lactic Acid 1.4 I & O for Last 24 hours: Intake & Output 03/24/18 03/25/18 03/26/18 03/27/18 11:59 11:59 11:59 11:59 Intake Total 660 / 660 Output Total 300 / 300 Balance 360 / 360 Weight 126 lb 6.009 oz - Constitutional no acute distress - *Routine Respiratory Exam Absent: respiratory distress - *Routine Cardiovascular Exam Present: RRR - *Routine Skin Exam Comments: 4mm raised/indurated area jean LLQ with tiny satellite vesicles. No spreading cellulitis. 0.75cm subQ nodularity along right groin crease with no surrounding erythema. 5mm raised area with induration along more cephalad region of right groin. Results - Labs 03/26/18 16:50 03/26/18 16:35 Laboratory Results - last 24 hr 03/26/18 16:35: Sodium 136, Potassium 3.9, Chloride 102, Carbon Dioxide 24, Anion Gap 13.9, BUN 11, Creatinine 0.65, Estimated Creat Clear 117, Estimated GFR 109, Est GFR ( Amer) 131, Glucose 96, Calcium 8.6, Total Bilirubin 0.6, AST 93 H, ALT 258 H, Alkaline Phosphatase 116, Total Protein 7.8, Albumin 3.8, Globulin 4.0 H, Albumin/Globulin Ratio 1.0 L 03/26/18 16:35: Total Creatine Kinase 44, CK-MB (CK-2) 0.5, CK-MB (CK-2) Rel Index 1.1, Troponin I < 0.02 03/26/18 16:50: WBC 7.3, RBC 4.74, Hgb 16.1, Hct 46.1, MCV 97.3, MCH 34.0 H, MCHC 34.9, RDW 14.2, Plt Count 248, MPV 8.3, Neut % (Auto) 50.3, Lymph % (Auto) 41.9, [place] % (Auto) 4.9, Eos % (Auto) 2.1, Baso % (Auto) 0.7, Neut # (Auto) 3.7 , Lymph # (Auto) 3.1, [place] # (Auto) 0.4, Eos # (Auto) 0.2, Baso # (Auto) 0.1 03/26/18 16:50: ESR 8 03/26/18 16:50: C-Reactive Protein < 0.2 03/26/18 22:40: Lactic Acid 1.4 Assessment and Plan (1) Cellulitis Current visit: No Status: Acute Qualifiers: Site of cellulitis: buttock Qualified Code(s): L03.317 - Cellulitis of buttock Category: Medical Code(s): L03.90 - Cellulitis, unspecified (2) Syncope, near Current visit: Yes Status: Acute Category: Medical Code(s): R55 - Syncope and collapse (3) Abscess of groin, right Current visit: No Status: Acute Category: Medical Code(s): L02.214 - Cutaneous abscess of groin Tiny areas of nodularity could be very early/forming abscesses, but are not "at a point" where drainage would be beneficial. Continue antibiotics for now. Reevaluate within the next few days for any changes. (4) Abscess of skin or subcutaneous tissue Current visit: No Status: Acute Qualifiers: Site of cutaneous abscess: buttock Qualified Code(s): L02.31 - Cutaneous abscess of buttock Category: Medical Code(s): L02.91 - Cutaneous abscess, unspecified
--- NOTE | 2018-03-27 11:21 | Pharmacy Consult Notes ---
- Pharmacy Consult Date: 03/27/18 Time: 11:20 Referring provider: DR. OBRIEN Reason for Consult:: VANCOMYCIN DOSING Allergies and ADEs:: Allergies Allergy/AdvReac Type Severity Reaction Status Date / Time bacitracin Allergy Mild Hives Verified 03/23/18 18:24 [From Neosporin ([id number]-adt-cursz)] neomycin Allergy Mild Hives Verified 03/23/18 18:24 [From Neosporin ([id number]-ppi-mrblw)] polymyxin B Allergy Mild Hives Verified 03/23/18 18:24 [From Neosporin (qcr-pav-njdiw)] sulfamethoxazole Allergy Mild Hives Verified 03/23/18 18:24 [From BACTRIM] trimethoprim [From BACTRIM] Allergy Mild Hives Verified 03/23/18 18:24 Home Medications:: Home Medications Medication Instructions Recorded Confirmed Type doxycycline monohydrate 100 mg 100 mg PO 30 Days cap 03/23/18 History capsule Height: 1.55 m Weight: 57.323 kg Laboratory Results:: Laboratory Results - last 24 hr 03/26/18 16:35: Sodium 136, Potassium 3.9, Chloride 102, Carbon Dioxide 24, Anion Gap 13.9, BUN 11, Creatinine 0.65, Estimated Creat Clear 117, Estimated GFR 109, Est GFR ( Amer) 131, Glucose 96, Calcium 8.6, Total Bilirubin 0.6, AST 93 H, ALT 258 H, Alkaline Phosphatase 116, Total Protein 7.8, Albumin 3.8, Globulin 4.0 H, Albumin/Globulin Ratio 1.0 L 03/26/18 16:35: Total Creatine Kinase 44, CK-MB (CK-2) 0.5, CK-MB (CK-2) Rel Index 1.1, Troponin I < 0.02 03/26/18 16:50: WBC 7.3, RBC 4.74, Hgb 16.1, Hct 46.1, MCV 97.3, MCH 34.0 H, MCHC 34.9, RDW 14.2, Plt Count 248, MPV 8.3, Neut % (Auto) 50.3, Lymph % (Auto) 41.9, [place] % (Auto) 4.9, Eos % (Auto) 2.1, Baso % (Auto) 0.7, Neut # (Auto) 3.7 , Lymph # (Auto) 3.1, [place] # (Auto) 0.4, Eos # (Auto) 0.2, Baso # (Auto) 0.1 03/26/18 16:50: ESR 8 03/26/18 16:50: C-Reactive Protein < 0.2 03/26/18 22:40: Lactic Acid 1.4 Medical History: Reports:: Depression, Heart Murmur (AGE 12), Migraine, MRSA, Valvular Heart Disease Denies:: Cancer, Diabetes Mellitus Type 1, Diabetes Mellitus Type 2 Assessment and Plan (1) Cellulitis Current visit: No Status: Acute Qualifiers: Site of cellulitis: buttock Qualified Code(s): L03.317 - Cellulitis of buttock Category: Medical Code(s): L03.90 - Cellulitis, unspecified (2) Syncope, near Current visit: Yes Status: Acute Category: Medical Code(s): R55 - Syncope and collapse (3) Abscess of groin, right Current visit: No Status: Acute Category: Medical Code(s): L02.214 - Cutaneous abscess of groin (4) Abscess of skin or subcutaneous tissue Current visit: No Status: Acute Qualifiers: Site of cutaneous abscess: buttock Qualified Code(s): L02.31 - Cutaneous abscess of buttock Category: Medical Code(s): L02.91 - Cutaneous abscess, unspecified - Assessment and plan all Dx Assessment and Plan for all problems:: PATIENT RECEIVED VANCOMYCIN 1250 MG X1 DOSE OVERNIGHT IN THE ER. RECOMMEND CONTINUING WITH VANCOMYCIN 1000 MG Q12 AT THIS TIME. PHARMACY WILL FOLLOW DAILY AND ADJUST APPROPRIATE. PAUL MARQUEZ, PHARMD
--- NOTE | 2018-03-27 15:09 | Pharmacy Consult Notes ---
[facility] Pharmacy VTE Monitoring - Patient Demographics Admission date: 03/27/18 Report Date: 03/27/18 Time: 15:09 Allergies/Adverse Reactions: Patient Allergies bacitracin [From Neosporin ([id number])] Allergy (Mild, Verified 03/23/18 18: 24) Hives neomycin [From Neosporin ([id number]-atx-[id number])] Allergy (Mild, Verified 03/23/18 18:24 ) Hives polymyxin B [From Neosporin (vgr-zuy-mnvaz)] Allergy (Mild, Verified 03/23/18 18 :24) Hives sulfamethoxazole [From BACTRIM] Allergy (Mild, Verified 03/23/18 18:24) Hives trimethoprim [From BACTRIM] Allergy (Mild, Verified 03/23/18 18:24) Hives Height: 1.55 m Weight: 57.323 kg Patient Problems: Current Active Problems Syncope, near (Acute) - VTE Risk Labs: VTE Related Lab Results Hgb 16.1 g/dL (12.2-16.2) 03/26/18 16:50 Hct 46.1 % (37.0-47.0) 03/26/18 16:50 Plt Count 248 K/mm3 (142-424) 03/26/18 16:50 BUN 11 mg/dL (7-18) 03/26/18 16:35 Creatinine 0.65 mg/dL (0.55-1.02) 03/26/18 16:35 Estimated Creat Clear 117 mL/min (0-300) 03/26/18 16:35 Was VTE Risk Assessment Performed: Yes VTE Score: 2 - Prophylaxis Types of VTE Prophylaxis: TEDS Knee High Location of Applied Device: Bilateral Lower Extremeties, Not Applicable (CHACE HOSE ORDERED)
--- NOTE | 2018-03-28 08:04 | Progress Note ---
Subjective Patient reports: still having pain Exam Vital signs and Labs for Last 24 Hours: Temp Pulse Resp BP Pulse Ox 97.2 F L 69 18 105/54 99 03/28/18 07:42 03/28/18 07:42 03/28/18 07:42 03/28/18 07:42 03/28/18 07:42 I & O for Last 24 hours: Intake & Output 03/25/18 03/26/18 03/27/18 03/28/18 11:59 11:59 11:59 11:59 Intake Total 660 / 660 3857 / 3857 Output Total 300 / 300 950 / 950 Balance 360 / 360 2907 / 2907 Weight 126 lb 6 oz 126 lb 6 oz - Constitutional no acute distress - *Routine Skin Exam Comments: small area of induration along right medial thigh/groin slightly increased with tenderness...no drainage...no spreading cellulitis Progress Note: A&P (1) Cellulitis Status: Acute Current Visit: No (2) Syncope, near Status: Acute Current Visit: Yes (3) Abscess of groin, right Status: Acute Assessment and plan: slightly increased area of induration with no spreading cellulitis Incision and drainage may be required in the very near future; however, the "forming abscess" is still quite immature. From a surgical standpoint, the patient may be discharged home with follow-up early this week. The possibility of incision and drainage within the next few days/week remains quite high. She will return immediately for reevaluation if she notices significant worsening of her symptoms or if she becomes systemically ill. Current Visit: No (4) Abscess of skin or subcutaneous tissue Status: Acute Current Visit: No
--- NOTE | 2018-03-28 09:39 | Discharge Summary ---
General - General Admission date:: 03/26/18 Discharge date: 03/28/18 HPI HPI: This is a 27-year-old female with a long history of multiple skin/subcutaneous abscesses who presents with concern regarding a left lower abdomen/pelvis abscess and right groin abscesses. She has required incision and drainage on multiple occasions over the past few years. Below is forwarded from her admission history and physical: this wf who has recurrent skin infection in groin and lower abd and gluteal area which has not improved sig with po abx - pt reports lesions as painful and has required pain meds also- she has had i/d in past - she also has 2 episodes of palpitation and near syncope over the last week- she has dec po intake and nausea - pt was admitted for iv abx and surg consult Hospital Course Hospital Course: pt with ivf and abx with surg consult and will be d/c on meds for pain and abx which she has at home and will see surg and pcp this week for close follow up pt w/o syncope or ectopy in the hospital Objective Vital signs: Temp Pulse Resp BP Pulse Ox 97.2 F L 69 18 105/54 99 03/28/18 07:42 03/28/18 07:42 03/28/18 07:42 03/28/18 07:42 03/28/18 07:42 no acute distress - *Routine HEENT Exam Head: Present: normocephalic Eye: Present: EOMI, PERRL ENT: Present: mucous membranes dry - *Routine Neck Exam Present: supple - *Routine Respiratory Exam Present: CTA bilaterally - *Routine Cardiovascular Exam Present: RRR. Absent: murmur - *Routine Abdominal Exam Present: soft - *Routine Extremities Exam Absent: calf tenderness - *Routine Skin Exam Comments: tender skin lesions with early abscess - *Routine Neurological Exam Present: alert, oriented X3, CN II-XII intact - Routine Psychiatric Exam Present: normal affect Results Labs on day of discharge: Labs from last 24 hours 03/28/18 08:30 Vancomycin Trough 5.5 L DS: Diagnosis - Discharge Diagnosis (1) Cellulitis Status: Acute (2) Syncope, near Status: Acute (3) Abscess of groin, right Status: Acute (4) Abscess of skin or subcutaneous tissue Status: Acute Discharge Plan - Patient Discharge Instructions ACTIVITY: Continue current activity DIET: continue same diet - Follow up Plan Follow up with: Davidson Chung MD [Staff Physician] - 03/30/18 Disposition: Home, Self-Snf Medications: Home Medications Medication Instructions Recorded Confirmed Type Mupirocin Calcium [Bactroban 2% 1 applic TOPICAL BID 03/27/18 03/27/18 History Cream 15gm] Prescriptions/Medication Reconciliation: Continue dextroamphetamine-amphetamine 20 mg tablet 20 mg PO BID #60 tab oxycodone-acetaminophen 7.5 mg-325 mg tablet 1 tab PO BID PRN #14 tab PRN Reason: pain Mupirocin Calcium [Bactroban 2% Cream 15gm] 1 applic TOPICAL BID
--- NOTE | 2018-03-28 09:52 | Pharmacy Consult Notes ---
- Pharmacy Consult Date: 03/28/18 Time: 09:51 Referring provider: DR. OBRIEN Reason for Consult:: VANCOMYCIN LEVEL AND DOSE CHANGE Allergies and ADEs:: Allergies Allergy/AdvReac Type Severity Reaction Status Date / Time bacitracin Allergy Mild Hives Verified 03/23/18 18:24 [From Neosporin ([id number])] neomycin Allergy Mild Hives Verified 03/23/18 18:24 [From Neosporin ([id number]-gav-atohi)] polymyxin B Allergy Mild Hives Verified 03/23/18 18:24 [From Neosporin ([id number]-eqf-dxscb)] sulfamethoxazole Allergy Mild Hives Verified 03/23/18 18:24 [From BACTRIM] trimethoprim [From BACTRIM] Allergy Mild Hives Verified 03/23/18 18:24 Home Medications:: Home Medications Medication Instructions Recorded Confirmed Type Mupirocin Calcium [Bactroban 2% 1 applic TOPICAL BID 03/27/18 03/27/18 History Cream 15gm] Height: 1.55 m Weight: 57.323 kg Laboratory Results:: Laboratory Results - last 24 hr 03/28/18 08:30: Vancomycin Trough 5.5 L Medical History: Reports:: Depression, Heart Murmur (AGE 12), Migraine, MRSA, Valvular Heart Disease Denies:: Cancer, Diabetes Mellitus Type 1, Diabetes Mellitus Type 2 Assessment and Plan (1) Cellulitis Current visit: No Status: Acute Qualifiers: Site of cellulitis: buttock Qualified Code(s): L03.317 - Cellulitis of buttock Category: Medical Code(s): L03.90 - Cellulitis, unspecified (2) Syncope, near Current visit: Yes Status: Acute Category: Medical Code(s): R55 - Syncope and collapse (3) Abscess of groin, right Current visit: No Status: Acute Category: Medical Code(s): L02.214 - Cutaneous abscess of groin (4) Abscess of skin or subcutaneous tissue Current visit: No Status: Acute Qualifiers: Site of cutaneous abscess: buttock Qualified Code(s): L02.31 - Cutaneous abscess of buttock Category: Medical Code(s): L02.91 - Cutaneous abscess, unspecified - Assessment and plan all Dx Assessment and Plan for all problems:: PATIENT'S VANCOMYCIN TROUGH LEVEL WAS 5.5 MCG/ML THIS AM. RECOMMEND CHANGING TO VANCOMYCIN 1000 MG Q8H AT THIS TIME. PHARMACY WILL FOLLOW DAILY AND ADJUST APPROPRIATE. PAUL MARQUEZ, PHARMD
[2018-03-28 15:11] LABS: Hepatitis B Core Antibody IgM Negative (Negative); Hepatitis B Surface Antigen Negative (Negative)
[2018-03-29 09:48] LABS: Hepatitis C Antibody >11.0 s/co ratio (0.0-0.9)
== END 2018-03-28 12:30 | disposition home or self-care (01) ==
LOC: 2ND → OBSVTOIN 16:13 → INTOOBSV 16:13
PROVIDERS: ADMIT Emergency Medicine; ATTEND Emergency Medicine

== ENCOUNTER → 2018-03-29 15:32 | Outpatient (CLI) | payer MEDICAID, SELFPAY | PROVIDERS: PCP Emergency Medicine; Visit Provider Emergency Medicine | DX: R00.2 Palpitations (principal) | CPT/HCPCS: 93225; 93226 ==

== ENCOUNTER 2018-04-07 21:30 | Observation (INO) ==
[2018-04-07 22:28] LABS: Basophils # 0.1 K/mm3 (0-0.2); Basophils % 0.5 % (0.1-2.0); Eosinophils # 0.3 K/mm3 (0.0-0.4); Eosinophils % 2.5 % (0.1-12.0); Hematocrit 47.3 % (37.0-47.0); Hemoglobin 15.4 g/dL (12.2-16.2); Lymphocytes # 4.3 K/mm3 (0.7-4.5); Lymphocytes % 38.6 K/mm3 (10-50); Mean Corpuscular HGB Conc 32.7 g/dL (31.8-35.4); Mean Corpuscular Hemoglobin 31.6 pg (27.0-31.2); Mean Corpuscular Volume 96.6 fl (81-99); Mean Platelet Volume 8.5 fl (7.4-10.4); Monocytes # 0.6 K/mm3 (0.1-1.0); Monocytes % 5.8 % (1.7-9.3); Neutrophils # 5.8 K/mm3 (1.8-7.8); Neutrophils % 52.5 % (37.0-80.0); Platelet Count 297 K/mm3 (142-424); Red Blood Count 4.89 M/mm3 (4.20-5.40); Red Cell Distribution Width 13.8 % (11.5-17.5)
[2018-04-07 22:58] LABS: Albumin Level 3.4 gm/dL (3.4-5.0); Albumin/Globulin Ratio 0.8 (1.1-1.8); Bilirubin,Total 0.2 mg/dL (0.2-1.0); Calcium 8.5 mg/dL (8.5-10.1); Globulin 4.1 gm/dl (1.3-3.2); Total Protein,Serum 7.5 gm/dL (6.4-8.2)
--- NOTE | 2018-04-08 00:58 | Emergency Department Note ---
ED Disposition Clinical Impression: Febrile illness, acute, Abscess of groin, right, Elevated LFTs Disposition: Admitted as Observation Condition on Discharge: Good - Critical Care Critical Care Time: No Attestation: On 04/07/18, the high probability of a clinically significant, sudden or life threatening deterioration of the following system(s) required my full and direct attention, intervention and personal management. The time I documented below is in addition to time spent performing reported procedures but includes the following listed in this critical care notation. Medical Decision Making - Medical Records Medical records reviewed: Yes: I reviewed the patient's medical records. - [place] Inquiry Pt receiving controlled substance: No Vital Signs: 04/07/18 21:41 04/07/18 22:55 Temperature 99.0 F 98.9 F Temperature Source Oral Oral Pulse Rate [Right Radial] 113 H 73 Respiratory Rate 18 18 Blood Pressure [Right Arm] 139/87 128/78 Blood Pressure Mean [Right Arm] 104 94 Blood Pressure Source [Right Arm] Automatic Cuff Automatic Cuff Blood Pressure Position [Right Arm] Sitting Sitting 02 Sat by Pulse Oximetry 99 99 Oxygen Delivery Method Room Air - Lab Data Lab results reviewed: Yes: I reviewed the patient's lab results. Lab Results 04/07/18 22:10: WBC 11.0 H, RBC 4.89, Hgb 15.4, Hct 47.3 H, MCV 96.6, MCH 31.6 H , MCHC 32.7, RDW 13.8, Plt Count 297, MPV 8.5, Neut % (Auto) 52.5, Lymph % (Auto ) 38.6, [place] % (Auto) 5.8, Eos % (Auto) 2.5, Baso % (Auto) 0.5, Neut # (Auto) 5.8, Lymph # (Auto) 4.3, [place] # (Auto) 0.6, Eos # (Auto) 0.3, Baso # (Auto) 0.1 04/07/18 22:10: Sodium 141, Potassium 4.0, Chloride 107, Carbon Dioxide 28, Anion Gap 10.0, BUN 12, Creatinine 0.62, Estimated Creat Clear 121, Estimated GFR 115, Est GFR ( Amer) 139, Glucose 97, Calcium 8.5, Total Bilirubin 0.2, AST 62 H, ALT 197 H, Alkaline Phosphatase 223 H, Total Protein 7.5, Albumin 3.4, Globulin 4.1 H, Albumin/Globulin Ratio 0.8 L 04/07/18 22:10: Lactic Acid 0.9 Result diagrams: 04/07/18 22:10 04/07/18 22:10 Orders (Tests/Meds): ED MEDICATIONS Discontinued Medications Generic Name Dose Route Start Last Admin Trade Name Keenan PRN Reason Stop Dose Admin Sodium Chloride 1,000 mls @ 999 mls/hr 04/07/18 22:00 04/07/18 21:59 Sod Chlor 0.9% 1000ml Bag IV 04/07/18 23:00 999 mls/hr .Q1H1M SAMM Administration Vancomycin HCl 1,000 mg/ 250 mls @ 125 mls/hr 04/08/18 01:15 04/08/18 01:30 Sodium Chloride IV 04/08/18 01:16 125 mls/hr ONCE ONE Administration Protocol Ketorolac Tromethamine 30 mg 04/07/18 21:50 04/07/18 21:59 Toradol 30mg/Ml Vial IV 04/07/18 21:51 30 mg ONCE ONE Administration Morphine Sulfate 4 mg 04/07/18 22:44 04/07/18 22:46 Morphine 4mg/Ml Syringe IV 04/07/18 22:45 4 mg ONCE ONE Administration Ondansetron HCl 4 mg 04/07/18 21:50 04/07/18 21:59 Zofran 4mg/2ml Vial IV 04/07/18 21:51 4 mg ONCE ONE Administration Ondansetron HCl 4 mg 04/07/18 22:44 04/07/18 22:57 Zofran 4mg/2ml Vial IV 04/07/18 22:45 Not Given ONCE ONE Oxycodone/Acetaminophen 1 each 04/08/18 01:12 04/08/18 01:14 Percocet 7.5/325mg Tablet PO 04/08/18 01:13 1 each ONCE ONE Administration ORDERS Category Date Time Status Blood Culture Stat Micro 04/07/18 22:15 Received Wound Culture and Gram Stain Stat Micro 04/07/18 22:40 Received - Physician Consults Physician Consulted: mary Reason -: Admission Skin/Abscess/FB HPI - General Chief complaint: Wound/Laceration Stated complaint: [id number] Open wounds Time Seen by Provider: 04/08/18 00:58 Mode of Arrival: Ambulatory Limitations: No Limitations Description of Symptoms (Recalled from ER Triage Doc. by RN): Right groin post op site with brownish green drainage with odor. - History of Present Illness HPI narrative: recent surg on rt groin with fever up to 103 and inc pain and smell and drainage - pt presented to ed with these sx and has been compliant with meds and treatment MD complaint: abscess/boil Onset (ago): day(s) Tetanus up to date: unsure Severity: moderate Quality: constant Consistency: constant Context: recent illness Associated symptoms: nausea Treatments prior to arrival: antibiotic, prescription analgesic - Related Data Home Medications Medication Instructions Recorded Confirmed cefdinir 300 mg capsule 300 mg PO Q12H 03/29/18 03/31/18 mupirocin 2 % topical cream 1 applic TOPICAL BID 03/29/18 03/31/18 Previous Rx's Medication Instructions Recorded dextroamphetamine-amphetamine 20 20 mg PO BID #60 tab 02/22/18 mg tablet oxycodone-acetaminophen 7.5 mg-325 1 tab PO BID PRN #14 tab 03/19/18 mg tablet Ofloxacin [Floxin 0.3% OTIC 5 drops EAR-RIGHT BID 7 Days #1 04/04/18 Solution 5mL] bottle Allergies Allergy/AdvReac Type Severity Reaction Status Date / Time bacitracin Allergy Mild Hives Verified 04/07/18 21:46 [From Neosporin (kki-ycs-wmszb)] neomycin Allergy Mild Hives Verified 04/07/18 21:46 [From Neosporin (kyr-brm-qvike)] polymyxin B Allergy Mild Hives Verified 04/07/18 21:46 [From Neosporin (ogf-mtv-eezbv)] sulfamethoxazole Allergy Mild Hives Verified 04/07/18 21:46 [From BACTRIM] trimethoprim [From BACTRIM] Allergy Mild Hives Verified 04/07/18 21:46 [facility] History I have reviewed the patient's past medical history: Yes Medical History: Reports:: Anxiety, Depression, Diabetes Mellitus Type 1, Heart Murmur, Hepatitis, Migraine, MRSA, Valvular Heart Disease Denies:: Cancer, Diabetes Mellitus Type 2, Seizures Other Medical History: Reports: Sinus Problems. Denies: Blood Transfusion Reaction Comment: ADHD Laterality Cases: Left: Other, Bilateral: Tonsillectomy Other Surgeries: Yes: Cholecystectomy, Colonoscopy, Dilation and Curettage, Diagnostic Lap, EGD, Other Amputation: No Fractures: Yes (LEFT ARM FRACTURE REPAIR.) Comment: Fx Arm with Plates. Cystectomy 2007 - Social History Smoking Status: Current every day smoker Tobacco Type: cigarettes # Packs/Day (cigarettes): 1 Alcohol Intake: never Alcohol Intake Frequency:: holidays/special occasions only Substance Use Type: heroin, IV drugs, methamphetamine Occupational Status: unemployed Housing: house Household Members: family, children - Psychiatric History Expresses thoughts of harming self/others: None Suicide Plan Description: No Plan Pschychiatric History:: Reports:: Anxiety, Depression Family Hx:: Anemia, Bleeding Disorder, Cancer, Coronary Artery Disease, Diabetes , Heart Attack, Hyperlipidemia, Hypertension, Stroke, Thyroid Disorder, Tuberculosis [employer] history: 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 ROS Obtained: Yes All systems reviewed & no additional complaints - Constitutional Constitutional: Reports as per HPI, Reports fever(s), Reports poor appetite, Reports malaise - Eyes Eyes: Denies change in vision - ENT Ears, Nose, Mouth, and Throat: Denies sore throat - Cardiovascular Cardiovascular: Denies chest pain at rest - Respiratory Respiratory: No cough - Gastrointestinal Gastrointestingal: Denies: abdominal pain - Genitourinary Female Genitourinary: Denies dysuria - Musculoskeletal Musculoskeletal: Denies joint pain - Integumentary/Breasts Skin/Breast: Reports other (post-op surg ) - Neurologic Neurologic: Denies seizure-like activity Physical Exam - General General appearance: in no apparent distress - Head Head exam: normocephalic - Eye Eye exam: Present: PERRL, EOMI - ENT ENT exam: Present: mucous membranes dry - Neck Neck exam: Present: trachea midline - Respiratory Respiratory exam: Absent: respiratory distress - Cardiovascular Cardiovascular exam: Present: regular rate - Abdominal Exam Abdominal exam: Present: soft Abdominal tenderness: Present: moderate Comment: open wds rt groin with swelling and tender - Neurological Exam Neurological exam: Present: alert, CN II-XII intact - Psychiatric Psychiatric exam: Present: normal affect - Skin Skin exam: Present: other (rt groin post - surg site )
[2018-04-08 06:00] LABS: Basophils % 0.4 % (0.1-2.0); Eosinophils # 0.2 K/mm3 (0.0-0.4); Hematocrit 41.9 % (37.0-47.0); Lymphocytes # 2.7 K/mm3 (0.7-4.5); Mean Corpuscular HGB Conc 32.2 g/dL (31.8-35.4); Mean Corpuscular Hemoglobin 31.7 pg (27.0-31.2); Mean Corpuscular Volume 98.5 fl (81-99); Mean Platelet Volume 8.2 fl (7.4-10.4); Monocytes # 0.4 K/mm3 (0.1-1.0); Monocytes % 4.7 % (1.7-9.3); Neutrophils # 4.3 K/mm3 (1.8-7.8); Neutrophils % 56.8 % (37.0-80.0); Platelet Count 258 K/mm3 (142-424); Red Blood Count 4.26 M/mm3 (4.20-5.40); Red Cell Distribution Width 13.9 % (11.5-17.5); White Blood Count 7.5 K/mm3 (4.8-10.8)
[2018-04-08 06:14] LABS: Hemoglobin 13.5 g/dL (12.2-16.2)
[2018-04-08 06:24] LABS: Anion Gap 9.8 mEq/L (5-15); Calcium 7.8 mg/dL (8.5-10.1); Potassium 3.8 mmoL/L (3.5-5.1)
--- NOTE | 2018-04-08 07:23 | Pharmacy Consult Notes ---
[facility] Pharmacy VTE Monitoring - Patient Demographics Admission date: 04/08/18 Report Date: 04/08/18 Time: 07:22 Allergies/Adverse Reactions: Patient Allergies bacitracin [From Neosporin ([id number]-gji-ojqav)] Allergy (Mild, Verified 04/07/18 21: 46) Hives neomycin [From Neosporin (wca-sbd-ofudn)] Allergy (Mild, Verified 04/07/18 21:46 ) Hives polymyxin B [From Neosporin (qib-odm-vzklw)] Allergy (Mild, Verified 04/07/18 21 :46) Hives sulfamethoxazole [From BACTRIM] Allergy (Mild, Verified 04/07/18 21:46) Hives trimethoprim [From BACTRIM] Allergy (Mild, Verified 04/07/18 21:46) Hives Height: 1.52 m Weight: 59.222 kg Patient Problems: Current Active Problems Febrile illness, acute (Acute) Abscess of groin, right (Acute) Elevated LFTs (Acute) - VTE Risk Labs: VTE Related Lab Results Hgb 13.5 g/dL (12.2-16.2) D 04/08/18 05:29 Hct 41.9 % (37.0-47.0) 04/08/18 05:29 Plt Count 258 K/mm3 (142-424) 04/08/18 05:29 BUN 12 mg/dL (7-18) 04/08/18 05:29 Creatinine 0.54 mg/dL (0.55-1.02) L 04/08/18 05:29 Estimated Creat Clear 145 mL/min (0-300) 04/08/18 05:29 Was VTE Risk Assessment Performed: Yes VTE Score: 7 VTE Risk Level: Moderate Risk - Prophylaxis VTE Prophylaxis Ordered?: Yes Types of VTE Prophylaxis: TEDS Knee High Location of Applied Device: Bilateral Lower Extremeties - VTE Diagnosis Confirmed Treatment or plan recommended: Continue Current Treatment
--- NOTE | 2018-04-08 09:27 | History & Physical Report ---
*Admission Date: 04/08/18 *Chief complaint: Fevers *History of present illness: This is a 27-year-old female who recently underwent incision and drainage of right medial thigh/groin abscesses. She was undergoing dressing changes and was completing a course of antibiotics. Over the past 24-48 hours she developed fevers to over 102F. She states that she "just does not feel right" . She presented to the emergency department for reevaluation and was discovered to have a small additional forming abscess along the right medial thigh/groin. No significant cellulitis or other anomalies were noted with regard to her wounds. [facility] History Medical History: Reports:: Anxiety, Depression, Heart Murmur, Hepatitis, Migraine, MRSA, Valvular Heart Disease (Mitral Valve) Denies:: Cancer, Diabetes Mellitus Type 1, Diabetes Mellitus Type 2, Seizures Other Medical History: Reports: Sinus Problems. Denies: Blood Transfusion Reaction Laterality Cases: Left: Other, Bilateral: Tonsillectomy Other Surgeries: Yes: Cholecystectomy, Colonoscopy, Dilation and Curettage, Diagnostic Lap, EGD, Other Amputation: No Fractures: Yes (LEFT ARM FRACTURE REPAIR.) - *Social History Educational Level: Completed High School Smoking Status: Current every day smoker Tobacco Type: cigarettes # Packs/Day (cigarettes): 1 Alcohol Intake: never Alcohol Intake Frequency:: holidays/special occasions only Substance Use Type: former substance user Occupational Status: unemployed Housing: house Household Members: family, children - Psychiatric History Expresses thoughts of harming self/others: None Suicide Plan Description: No Plan Pschychiatric History:: Reports:: Anxiety, Depression *Family Hx:: Anemia, Bleeding Disorder, Cancer, Coronary Artery Disease, Diabetes, Heart Attack, Hyperlipidemia, Hypertension, Stroke, Thyroid Disorder, Tuberculosis [employer] history: 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 Review of Systems - Constitutional Denies anorexia - Eyes Denies change in vision - ENT Denies change in voice - *Cardiovascular Denies chest pain - *Respiratory Denies cough - *Gastrointestinal Denies abdominal pain - *Genitourinary Denies abnormal periods - *Musculoskeletal Denies abnormal walking - Integumentary/Breasts Denies change in hair - *Neurologic Denies abnormal walking, Denies seizure-like activity - Psychiatric Denies anxiety - Endocrine Denies cold intolerance - Hematologic/Lymphatic Denies easy bleeding - Allergic/Immunologic Denies lip swelling, Denies throat swelling Meds Allergies Allergy/AdvReac Type Severity Reaction Status Date / Time bacitracin Allergy Mild Hives Verified 04/07/18 21:46 [From Neosporin ([id number]-zbq-[id number])] neomycin Allergy Mild Hives Verified 04/07/18 21:46 [From Neosporin (uix-qlh-vgtjf)] polymyxin B Allergy Mild Hives Verified 04/07/18 21:46 [From Neosporin (isd-bzc-amfji)] sulfamethoxazole Allergy Mild Hives Verified 04/07/18 21:46 [From BACTRIM] trimethoprim [From BACTRIM] Allergy Mild Hives Verified 04/07/18 21:46 Exam Vital signs and Labs for Last 24 Hours: Temp Pulse Resp BP Pulse Ox 98.4 F 76 18 106/56 95 04/08/18 07:52 04/08/18 07:52 04/08/18 09:11 04/08/18 07:52 04/08/18 07:52 Laboratory Results - last 24 hr 04/07/18 22:10: WBC 11.0 H, RBC 4.89, Hgb 15.4, Hct 47.3 H, MCV 96.6, MCH 31.6 H , MCHC 32.7, RDW 13.8, Plt Count 297, MPV 8.5, Neut % (Auto) 52.5, Lymph % (Auto ) 38.6, [place] % (Auto) 5.8, Eos % (Auto) 2.5, Baso % (Auto) 0.5, Neut # (Auto) 5.8, Lymph # (Auto) 4.3, [place] # (Auto) 0.6, Eos # (Auto) 0.3, Baso # (Auto) 0.1 04/07/18 22:10: Sodium 141, Potassium 4.0, Chloride 107, Carbon Dioxide 28, Anion Gap 10.0, BUN 12, Creatinine 0.62, Estimated Creat Clear 121, Estimated GFR 115, Est GFR ( Amer) 139, Glucose 97, Calcium 8.5, Total Bilirubin 0.2, AST 62 H, ALT 197 H, Alkaline Phosphatase 223 H, Total Protein 7.5, Albumin 3.4, Globulin 4.1 H, Albumin/Globulin Ratio 0.8 L 04/07/18 22:10: Lactic Acid 0.9 04/08/18 05:29: WBC 7.5 D, RBC 4.26, Hgb 13.5 D, Hct 41.9, MCV 98.5, MCH 31.7 H, MCHC 32.2, RDW 13.9, Plt Count 258, MPV 8.2, Neut % (Auto) 56.8, Lymph % ( Auto) 36.0, [place] % (Auto) 4.7, Eos % (Auto) 2.0, Baso % (Auto) 0.4, Neut # (Auto ) 4.3, Lymph # (Auto) 2.7, [place] # (Auto) 0.4, Eos # (Auto) 0.2, Baso # (Auto) 0.0 04/08/18 05:29: Sodium 141, Potassium 3.8, Chloride 110 H, Carbon Dioxide 25, Anion Gap 9.8, BUN 12, Creatinine 0.54 L, Estimated Creat Clear 145, Estimated GFR 134, Est GFR ( Amer) 163, Glucose 93, Calcium 7.8 L I & O for Last 24 hours: Intake & Output 04/05/18 04/06/18 04/07/18 04/08/18 11:59 11:59 11:59 11:59 Intake Total 512 / 512 Balance 512 / 512 Weight 130 lb 9 oz Microbiology Reports for the Last 24 Hours: Microbiology 04/07/18 22:40 Groin Gram Stain - Final - Constitutional no acute distress - *Routine HEENT Exam Head: Present: normocephalic, atraumatic Eye: Present: EOMI ENT: Present: mucous membranes moist - *Routine Neck Exam Present: supple, full ROM - Routine Chest/Breast/Axilla Exam Chest wall: Absent: tenderness - *Routine Respiratory Exam Absent: respiratory distress - *Routine Cardiovascular Exam Present: RRR - *Routine Abdominal Exam Present: soft. Absent: tenderness - *Routine Skin Exam Comments: Right medial thigh/groin incision and drainage sites without erythema. Small immature/forming abscess lateral to incision and drainage sites. - *Routine Neurological Exam Present: alert, oriented X3 - Routine Psychiatric Exam Present: normal affect H&P: Result - Labs Labs: Short CBC 04/07/18 04/08/18 Range/Units 22:10 05:29 WBC 11.0 H 7.5 D (4.8-10.8) K/mm3 Hgb 15.4 13.5 D (12.2-16.2) g/dL Hct 47.3 H 41.9 (37.0-47.0) % Plt Count 297 258 (142-424) K/mm3 BMP 04/07/18 04/08/18 22:10 05:29 Sodium 141 141 Potassium 4.0 3.8 Chloride 107 110 H Carbon Dioxide 28 25 BUN 12 12 Creatinine 0.62 0.54 L Glucose 97 93 Calcium 8.5 7.8 L Liver Function 04/07/18 Range/Units 22:10 Total Bilirubin 0.2 (0.2-1.0) mg/dL AST 62 H (15-37) U/L ALT 197 H (12-78) U/L Alkaline Phosphatase 223 H (46-116) U/L Albumin 3.4 (3.4-5.0) gm/dL Assessment and Plan (1) Abscess of groin, right Current visit: Yes Status: Acute Category: Medical Code(s): L02.214 - Cutaneous abscess of groin Antibiotics New small/forming abscess may need to be incised and drained Continue dressing changes to prior incision and drainage sites (2) Febrile illness, acute Current visit: Yes Status: Acute Category: Medical Code(s): R50.9 - Fever , unspecified Follow-up all pending cultures Continue antibiotics for now (3) Abscess of skin or subcutaneous tissue Current visit: No Status: Acute Qualifiers: Site of cutaneous abscess: buttock Qualified Code(s): L02.31 - Cutaneous abscess of buttock Category: Medical Code(s): L02.91 - Cutaneous abscess, unspecified
--- NOTE | 2018-04-08 10:52 | Pharmacy Consult Notes ---
- Pharmacy Consult Date: 04/08/18 Time: 10:51 Referring provider: DR. OBRIEN Reason for Consult:: VANCOMYCIN DOSING Allergies and ADEs:: Allergies Allergy/AdvReac Type Severity Reaction Status Date / Time bacitracin Allergy Mild Hives Verified 04/07/18 21:46 [From Neosporin (juw-amr-jjtuu)] neomycin Allergy Mild Hives Verified 04/07/18 21:46 [From Neosporin (woq-viz-dgmbe)] polymyxin B Allergy Mild Hives Verified 04/07/18 21:46 [From Neosporin (sab-eqf-kxqao)] sulfamethoxazole Allergy Mild Hives Verified 04/07/18 21:46 [From BACTRIM] trimethoprim [From BACTRIM] Allergy Mild Hives Verified 04/07/18 21:46 Home Medications:: Home Medications Medication Instructions Recorded Confirmed Type Dextroamphetamine/Amphetamine 20 mg PO BID 04/08/18 04/08/18 History [Dextroamp-Amphetamin 20 mg Tab] Ofloxacin [Ocuflox 0.3% OPHTH 5 drops EAR-RIGHT BID 04/08/18 04/08/18 History drops 5mL] Height: 1.52 m Weight: 59.222 kg Laboratory Results:: Laboratory Results - last 24 hr 04/07/18 22:10: WBC 11.0 H, RBC 4.89, Hgb 15.4, Hct 47.3 H, MCV 96.6, MCH 31.6 H , MCHC 32.7, RDW 13.8, Plt Count 297, MPV 8.5, Neut % (Auto) 52.5, Lymph % (Auto ) 38.6, [place] % (Auto) 5.8, Eos % (Auto) 2.5, Baso % (Auto) 0.5, Neut # (Auto) 5.8, Lymph # (Auto) 4.3, [place] # (Auto) 0.6, Eos # (Auto) 0.3, Baso # (Auto) 0.1 04/07/18 22:10: Sodium 141, Potassium 4.0, Chloride 107, Carbon Dioxide 28, Anion Gap 10.0, BUN 12, Creatinine 0.62, Estimated Creat Clear 121, Estimated GFR 115, Est GFR ( Amer) 139, Glucose 97, Calcium 8.5, Total Bilirubin 0.2, AST 62 H, ALT 197 H, Alkaline Phosphatase 223 H, Total Protein 7.5, Albumin 3.4, Globulin 4.1 H, Albumin/Globulin Ratio 0.8 L 04/07/18 22:10: Lactic Acid 0.9 04/08/18 05:29: WBC 7.5 D, RBC 4.26, Hgb 13.5 D, Hct 41.9, MCV 98.5, MCH 31.7 H, MCHC 32.2, RDW 13.9, Plt Count 258, MPV 8.2, Neut % (Auto) 56.8, Lymph % ( Auto) 36.0, [place] % (Auto) 4.7, Eos % (Auto) 2.0, Baso % (Auto) 0.4, Neut # (Auto ) 4.3, Lymph # (Auto) 2.7, [place] # (Auto) 0.4, Eos # (Auto) 0.2, Baso # (Auto) 0.0 04/08/18 05:29: Sodium 141, Potassium 3.8, Chloride 110 H, Carbon Dioxide 25, Anion Gap 9.8, BUN 12, Creatinine 0.54 L, Estimated Creat Clear 145, Estimated GFR 134, Est GFR ( Amer) 163, Glucose 93, Calcium 7.8 L Medical History: Reports:: Anxiety, Depression, Heart Murmur, Hepatitis, Migraine, MRSA, Valvular Heart Disease (Mitral Valve) Denies:: Cancer, Diabetes Mellitus Type 1, Diabetes Mellitus Type 2, Seizures Assessment and Plan (1) Abscess of groin, right Current visit: Yes Status: Acute Category: Medical Code(s): L02.214 - Cutaneous abscess of groin (2) Febrile illness, acute Current visit: Yes Status: Acute Category: Medical Code(s): R50.9 - Fever , unspecified (3) Abscess of skin or subcutaneous tissue Current visit: No Status: Acute Qualifiers: Site of cutaneous abscess: buttock Qualified Code(s): L02.31 - Cutaneous abscess of buttock Category: Medical Code(s): L02.91 - Cutaneous abscess, unspecified - Assessment and plan all Dx Assessment and Plan for all problems:: BASED ON PATIENT FACTORS, RECOMMEND VANCOMYCIN 1 GM IV ONCE OVERNIGHT, THEN VANCOMYCIN 1250 MG IV Q12H. PHARMACY WILL FOLLOW DAILY AND ADJUST APPROPRIATE.
--- NOTE | 2018-04-09 06:48 | Progress Note ---
Subjective Patient reports: no new complaints (spontaneous drainage from newest "abscess" overnight) Exam Vital signs and Labs for Last 24 Hours: Temp Pulse Resp BP Pulse Ox 98.5 F 70 16 110/56 98 04/09/18 04:00 04/09/18 04:00 04/09/18 04:00 04/09/18 04:00 04/09/18 04:00 I & O for Last 24 hours: Intake & Output 04/06/18 04/07/18 04/08/18 04/09/18 11:59 11:59 11:59 11:59 Intake Total 512 / 512 2400 / 2400 Output Total 1100 / 1100 Balance 512 / 512 1300 / 1300 Weight 130 lb 9 oz Microbiology Reports for the Last 24 Hours: Microbiology 04/07/18 22:40 Groin Gram Stain - Final 04/07/18 22:40 Groin Wound Culture - Preliminary NO GROWTH AFTER 24 HOURS - Constitutional no acute distress - *Routine Respiratory Exam Absent: respiratory distress - *Routine Cardiovascular Exam Present: RRR - *Routine Skin Exam Comments: no spreading cellulitis wound base and margin clean Progress Note: A&P (1) Abscess of groin, right Status: Acute Assessment and plan: improving continue abx continue dressing changes likely d/c home later today Current Visit: Yes (2) Febrile illness, acute Status: Acute Current Visit: Yes (3) Abscess of skin or subcutaneous tissue Status: Acute Current Visit: No
[2018-04-09 08:26] VITALS: BP 119/78
--- NOTE | 2018-04-09 11:58 | Pharmacy Consult Notes ---
- Pharmacy Consult Date: 04/09/18 Time: 11:56 Referring provider: DR. OBRIEN Reason for Consult:: VANCOMYCIN TROUGH LEVEL Allergies and ADEs:: Allergies Allergy/AdvReac Type Severity Reaction Status Date / Time bacitracin Allergy Mild Hives Verified 04/07/18 21:46 [From Neosporin (cui-zul-mruud)] neomycin Allergy Mild Hives Verified 04/07/18 21:46 [From Neosporin (lth-hgb-jhish)] polymyxin B Allergy Mild Hives Verified 04/07/18 21:46 [From Neosporin (lac-pvi-bdevx)] sulfamethoxazole Allergy Mild Hives Verified 04/07/18 21:46 [From BACTRIM] trimethoprim [From BACTRIM] Allergy Mild Hives Verified 04/07/18 21:46 Home Medications:: Home Medications Medication Instructions Recorded Confirmed Type Dextroamphetamine/Amphetamine 20 mg PO BID 04/08/18 04/08/18 History [Dextroamp-Amphetamin 20 mg Tab] Ofloxacin [Ocuflox 0.3% OPHTH 5 drops EAR-RIGHT BID 04/08/18 04/08/18 History drops 5mL] Height: 1.52 m Weight: 59.222 kg Laboratory Results:: Laboratory Results - last 24 hr 04/09/18 10:50: Vancomycin Trough 7.9 L Medical History: Reports:: Anxiety, Depression, Heart Murmur, Hepatitis, Migraine, MRSA, Valvular Heart Disease (Mitral Valve) Denies:: Cancer, Diabetes Mellitus Type 1, Diabetes Mellitus Type 2, Seizures Assessment and Plan (1) Abscess of groin, right Current visit: Yes Status: Acute Category: Medical Code(s): L02.214 - Cutaneous abscess of groin (2) Febrile illness, acute Current visit: Yes Status: Acute Category: Medical Code(s): R50.9 - Fever , unspecified (3) Abscess of skin or subcutaneous tissue Current visit: No Status: Acute Qualifiers: Site of cutaneous abscess: buttock Qualified Code(s): L02.31 - Cutaneous abscess of buttock Category: Medical Code(s): L02.91 - Cutaneous abscess, unspecified - Assessment and plan all Dx Assessment and Plan for all problems:: BASED ON PATIENT FACTORS AND VANC TROUGH LEVEL OF 7.9, RECOMMEND INCREASING VANCOMYCIN DOSE TO 1,500MG IV Q12H. PHARMACY WILL CONTINUE TO MONITOR AND ADJUST DOSE APPROPRIATE. -PARIS WOODS,JUDYD
--- NOTE | 2018-04-09 12:30 | Discharge Summary ---
General - General Admission date:: 04/08/18 Discharge date: 04/09/18 HPI HPI: This is a 27-year-old female who recently underwent incision and drainage of right medial thigh/groin abscesses. She was undergoing dressing changes and was completing a course of antibiotics. Over the past 24-48 hours she developed fevers to over 102F. She states that she "just does not feel right" . She presented to the emergency department for reevaluation and was discovered to have a small additional forming abscess along the right medial thigh/groin. No significant cellulitis or other anomalies were noted with regard to her wounds. Hospital Course Hospital Course: The patient convalesced well and remained afebrile with stable and normal vital signs. She was maintained on a short course of vancomycin while hospitalized. The wounds were evaluated and found to be without signs of cellulitis. She was deemed appropriate for discharge on the afternoon of April 09. Objective Vital signs: Temp Pulse Resp BP Pulse Ox 98.0 F 68 18 119/78 98 04/09/18 08:00 04/09/18 10:40 04/09/18 10:40 04/09/18 08:00 04/09/18 10:40 no acute distress - *Routine Respiratory Exam Present: respiratory distress - *Routine Cardiovascular Exam Present: RRR - *Routine Skin Exam Absent: erythema Comments: Right medial thigh/groin wounds are without erythema. Wound base and margin are clean. Results Labs on day of discharge: Labs from last 24 hours 04/09/18 10:50 Vancomycin Trough 7.9 L Preliminary micro results at discharge 04/07/18 22:40 Wound Culture - Preliminary Groin DS: Diagnosis - Discharge Diagnosis (1) Abscess of groin, right Status: Acute (2) Febrile illness, acute Status: Acute (3) Abscess of skin or subcutaneous tissue Status: Acute Discharge Plan - Patient Discharge Instructions Additional Instructions: Continue dressing changes Patient Instructions: DI for Laceration Repair - Follow up Plan Follow up with: Davidson Chung MD [Staff Physician] - (as scheduled) Disposition: Home, Self-[facility] Medications: Home Medications Medication Instructions Recorded Confirmed Type Dextroamphetamine/Amphetamine 20 mg PO BID 04/08/18 04/08/18 History [Dextroamp-Amphetamin 20 mg Tab] Ofloxacin [Ocuflox 0.3% OPHTH 5 drops EAR-RIGHT BID 04/08/18 04/08/18 History drops 5mL] Prescriptions/Medication Reconciliation: Continue Dextroamphetamine/Amphetamine [Dextroamp-Amphetamin 20 mg Tab] 20 mg PO BID Ofloxacin [Ocuflox 0.3% OPHTH drops 5mL] 5 drops EAR-RIGHT BID
== END 2018-04-09 15:45 | disposition home or self-care (01) ==
LOC: 2ND 21:30 → ER 21:30 → OBSVTOIN 04-08 02:00 → INTOOBSV 04-08 02:00 → 2ND 04-08 02:05
PROVIDERS: ADMIT Surgery; ATTEND Surgery

== ENCOUNTER 2018-04-16 14:20 | Outpatient (CLI) | payer MEDICAID, SELFPAY ==
[2018-04-16 14:31] VITALS: BMI 24.4
[2018-04-16 14:49] VITALS: BP 117/77; PULSE 90; RESP 18; TEMP 36.8; O2SAT 98
[2018-04-16 15:00] LABS: Anion Gap 13.2 mEq/L (5-15); Blood Urea Nitrogen 13 mg/dL (7-18); Carbon Dioxide 23 mmol/L (21.0-32.0); Chloride 109 mmol/L (98-107); Creatinine Clearance Estimated 116 mL/min (0-300); Creatinine,Serum 0.64 mg/dL (0.55-1.02); Estimated Glomerular Filt Rate 110 ml/min (>60); GFR (African American) 133 ML/MIN (>60); Glucose 87 mg/dL (74-106); Potassium 4.2 mmoL/L (3.5-5.1); Sodium 141 mmol/L (136-145)
[2018-04-16 15:19] VITALS: BP 114/74; PULSE 84; RESP 18; O2SAT 97
[2018-04-16 15:49] VITALS: BP 118/71; PULSE 88; RESP 18; O2SAT 97
[2018-04-16 16:19] VITALS: BP 121/72; PULSE 85; RESP 18; O2SAT 98
[2018-04-16 17:02] VITALS: BP 109/68; PULSE 72; RESP 18; O2SAT 98
== END 2018-04-16 17:08 | disposition home or self-care (01) ==
LOC: INF 14:21
PROVIDERS: Family Provider Emergency Medicine; PCP Emergency Medicine; Visit Provider Emergency Medicine
DX: L02.214 Cutaneous abscess of groin (principal)
CPT/HCPCS: 80048; 96365; 96366; J3370

== ENCOUNTER → 2018-04-17 08:58 | Outpatient (CLI) | payer MEDICAID, SELFPAY ==
[2018-04-17 08:58] VITALS: BP 113/56; PULSE 73; RESP 18; TEMP 36.6; O2SAT 99
[2018-04-17 09:05] VITALS: BP 106/63; PULSE 73; RESP 18; TEMP 37; O2SAT 100; BMI 24.4
== END ==
PROVIDERS: Family Provider Emergency Medicine; PCP Emergency Medicine; Visit Provider Emergency Medicine
DX: L02.214 Cutaneous abscess of groin (principal)
CPT/HCPCS: 96365; J0878

== ENCOUNTER → 2018-04-18 15:56 | Outpatient (CLI) | payer MEDICAID, SELFPAY ==
[2018-04-18 16:08] VITALS: BP 119/68; PULSE 69; RESP 18; TEMP 36.7; O2SAT 100; BMI 21.4
[2018-04-18 16:50] VITALS: BP 102/75; PULSE 65; RESP 18; TEMP 37; O2SAT 100
== END ==
PROVIDERS: Family Provider Emergency Medicine; PCP Emergency Medicine; Visit Provider Emergency Medicine
DX: L02.214 Cutaneous abscess of groin (principal); L98.9 Disorder of the skin and subcutaneous tissue, unspecified
CPT/HCPCS: 96365; J0878

== ENCOUNTER 2018-04-19 13:01 | Observation (INO) ==
--- NOTE | 2018-04-19 15:06 | History & Physical Report ---
*Admission Date: 04/19/18 *Chief complaint: rt groin cellulitis *History of present illness: pt with ongoing rt groin swelling and tenderness with assoc fever - was recent admit to surg - pt had i/d and has been having fevers and was on iv abx this weekend but reported ongoing fever and pain [facility] History I have reviewed the patient's past medical history: Yes Medical History: Reports:: Anxiety, Depression, Heart Murmur, Hepatitis, Migraine, MRSA, Valvular Heart Disease Denies:: Cancer, Diabetes Mellitus Type 1, Diabetes Mellitus Type 2, Seizures Other Medical History: Reports: Sinus Problems. Denies: Blood Transfusion Reaction Laterality Cases: Left: Other, Bilateral: Tonsillectomy Other Surgeries: Yes: Cholecystectomy, Colonoscopy, Dilation and Curettage, Diagnostic Lap, EGD, Other Amputation: No Fractures: Yes (LEFT ARM FRACTURE REPAIR.) - *Social History Educational Level: Completed High School Smoking Status: Current every day smoker Tobacco Type: cigarettes # Packs/Day (cigarettes): 1 Alcohol Intake: never Alcohol Intake Frequency:: holidays/special occasions only Substance Use Type: denies use Occupational Status: unemployed Housing: house Household Members: family - Psychiatric History Expresses thoughts of harming self/others: None Suicide Plan Description: No Plan Pschychiatric History:: Reports:: Anxiety, Depression *Family Hx:: Anemia, Bleeding Disorder, Cancer, Coronary Artery Disease, Diabetes, Heart Attack, Hyperlipidemia, Hypertension, Stroke, Thyroid Disorder, Tuberculosis MIX CHEMIST history: 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 Review of Systems - Review of Systems Review of systems:: pertinent systems reviewed and negative unless documented below - Constitutional Denies body ache(s), Denies fever(s) - Eyes Denies change in vision - ENT Denies throat swelling - *Cardiovascular Denies chest pain at rest - *Respiratory Denies cough - *Gastrointestinal Denies abdominal pain - *Genitourinary Denies blood in urine - *Musculoskeletal Denies joint pain - Integumentary/Breasts Reports other (changes rt groin ) - *Neurologic Denies confusion - Psychiatric Denies anxiety Meds Home Medications Medication Instructions Recorded Confirmed Type Dextroamphetamine/Amphetamine 20 mg PO BID 04/08/18 04/19/18 History [Dextroamp-Amphetamin 20 mg Tab] Allergies Allergy/AdvReac Type Severity Reaction Status Date / Time bacitracin Allergy Mild Hives Verified 04/16/18 13:49 [From Neosporin ([id number]-ozr-lhivh)] neomycin Allergy Mild Hives Verified 04/16/18 13:49 [From Neosporin (fek-ruu-sfvov)] polymyxin B Allergy Mild Hives Verified 04/16/18 13:49 [From Neosporin (vov-nmv-aggex)] sulfamethoxazole Allergy Mild Hives Verified 04/16/18 13:49 [From BACTRIM] trimethoprim [From BACTRIM] Allergy Mild Hives Verified 04/16/18 13:49 Exam Vital signs and Labs for Last 24 Hours: Temp Pulse Resp BP Pulse Ox 98.2 F 70 18 149/94 98 04/19/18 13:20 04/19/18 13:38 04/19/18 13:38 04/19/18 13:20 04/19/18 13:38 I & O for Last 24 hours: Intake & Output 04/17/18 04/18/18 04/19/18 04/20/18 11:59 11:59 11:59 11:59 Weight 126 lb 4 oz - Constitutional no acute distress - *Routine HEENT Exam Head: Present: normocephalic Eye: Present: EOMI, PERRL ENT: Present: mucous membranes dry - *Routine Neck Exam Present: supple - *Routine Respiratory Exam Present: CTA bilaterally - *Routine Cardiovascular Exam Absent: murmur - *Routine Abdominal Exam Present: soft - *Routine Extremities Exam Absent: calf tenderness - *Routine Skin Exam Present: intact - *Routine Neurological Exam Present: alert, oriented X3, CN II-XII intact - Routine Psychiatric Exam Present: normal affect Assessment and Plan (1) Cellulitis of groin, right Current visit: Yes Status: Acute Category: Medical Code(s): L03.314 - Cellulitis of groin
--- NOTE | 2018-04-19 16:08 | Pharmacy Consult Notes ---
[facility] Pharmacy VTE Monitoring - Patient Demographics Admission date: 04/19/18 Report Date: 04/19/18 Time: 16:08 Allergies/Adverse Reactions: Patient Allergies bacitracin [From Neosporin (zlu-xyd-jgzwu)] Allergy (Mild, Verified 04/16/18 13: 49) Hives neomycin [From Neosporin (pav-tij-kwwux)] Allergy (Mild, Verified 04/16/18 13:49 ) Hives polymyxin B [From Neosporin (ydr-cor-mxigq)] Allergy (Mild, Verified 04/16/18 13 :49) Hives sulfamethoxazole [From BACTRIM] Allergy (Mild, Verified 04/16/18 13:49) Hives trimethoprim [From BACTRIM] Allergy (Mild, Verified 04/16/18 13:49) Hives Height: 1.52 m Weight: 57.266 kg - VTE Risk Was VTE Risk Assessment Performed: Yes VTE Score: 0 - Prophylaxis VTE Prophylaxis Ordered?: Yes Types of VTE Prophylaxis: TEDS Knee High Location of Applied Device: Bilateral Lower Extremeties - VTE Diagnosis Confirmed Treatment or plan recommended: Continue Current Treatment
--- NOTE | 2018-04-19 16:24 | Pharmacy Consult Notes ---
- Pharmacy Consult Date: 04/19/18 Time: 16:22 Referring provider: DR. OBRIEN Reason for Consult:: VANCOMYCIN DOSING Allergies and ADEs:: Allergies Allergy/AdvReac Type Severity Reaction Status Date / Time bacitracin Allergy Mild Hives Verified 04/16/18 13:49 [From Neosporin (zas-jfc-ggbuk)] neomycin Allergy Mild Hives Verified 04/16/18 13:49 [From Neosporin (vcc-khf-zwnuo)] polymyxin B Allergy Mild Hives Verified 04/16/18 13:49 [From Neosporin (kus-klk-nwedk)] sulfamethoxazole Allergy Mild Hives Verified 04/16/18 13:49 [From BACTRIM] trimethoprim [From BACTRIM] Allergy Mild Hives Verified 04/16/18 13:49 Home Medications:: Home Medications Medication Instructions Recorded Confirmed Type Dextroamphetamine/Amphetamine 20 mg PO BID 04/08/18 04/19/18 History [Dextroamp-Amphetamin 20 mg Tab] Height: 1.52 m Weight: 57.266 kg Laboratory Results:: NONE Medical History: Reports:: Anxiety, Depression, Heart Murmur, Hepatitis, Migraine, MRSA, Valvular Heart Disease Denies:: Cancer, Diabetes Mellitus Type 1, Diabetes Mellitus Type 2, Seizures Assessment and Plan - Assessment and plan all Dx Assessment and Plan for all problems:: BASED ON PATIENT'S FACTORS, RECOMMEND STARTING WITH VANCOMYCIN 1250 MG X1 NOW AND Q12H STARTING AT 2300 TONIGHT. PHARMACY WILL FOLLOW DAILY AND ADJUST APPROPRIATE. PAUL MARQUEZ, JUDYD
[2018-04-20 06:18] LABS: Basophils % 0.5 % (0.1-2.0); Eosinophils # 0.2 K/mm3 (0.0-0.4); Eosinophils % 2.4 % (0.1-12.0); Hematocrit 43.2 % (37.0-47.0); Hemoglobin 13.9 g/dL (12.2-16.2); Lymphocytes # 2.5 K/mm3 (0.7-4.5); Lymphocytes % 38.4 K/mm3 (10-50); Mean Corpuscular HGB Conc 32.2 g/dL (31.8-35.4); Mean Corpuscular Hemoglobin 31.5 pg (27.0-31.2); Mean Corpuscular Volume 98.1 fl (81-99); Mean Platelet Volume 8.9 fl (7.4-10.4); Monocytes # 0.4 K/mm3 (0.1-1.0); Monocytes % 5.8 % (1.7-9.3); Neutrophils # 3.5 K/mm3 (1.8-7.8); Neutrophils % 52.8 % (37.0-80.0); Platelet Count 223 K/mm3 (142-424); Red Blood Count 4.41 M/mm3 (4.20-5.40); Red Cell Distribution Width 13.8 % (11.5-17.5); White Blood Count 6.6 K/mm3 (4.8-10.8)
[2018-04-20 07:00] LABS: Anion Gap 10.8 mEq/L (5-15); Calcium 8.2 mg/dL (8.5-10.1); Potassium 3.8 mmoL/L (3.5-5.1)
--- NOTE | 2018-04-20 07:55 | Consult Report ---
*Admission Date: 04/19/18 *Chief complaint: Fever *History of present illness: This is a 28-year-old female seen in consultation from Dr. Ron for evaluation regarding fever and right medial thigh/groin abscesses. Over the past few weeks she has undergone incision and drainage of complex right medial thigh/groin abscesses and has had spontaneous drainage of a few small abscesses in this general location. She has been on IV antibiotics and reports continued fevers. During her initial postoperative period she was readmitted for evaluation regarding fevers. Her white blood cell count was essentially normal and her temperature curve was normal during her hospitalization. She was subsequently discharged and evaluated in the outpatient setting. She states that a few more small abscesses were "opened in Dr. Ron's office". She has now returned to the emergency department complaining of fever and generalized "feeling bad". Evaluation of her wounds reveal no spreading cellulitis. Her white blood cell count remains normal. Review of Systems - Constitutional Denies body ache(s) - *Cardiovascular Denies chest pain - *Respiratory Denies cough - *Gastrointestinal Denies abdominal pain, Denies nausea, Denies vomiting - *Genitourinary Denies abnormal periods - *Neurologic Denies confusion - Hematologic/Lymphatic Denies easy bleeding [facility] History Medical History: Reports:: Anxiety, Depression, Heart Murmur, Hepatitis, Migraine, MRSA, Valvular Heart Disease Denies:: Cancer, Diabetes Mellitus Type 1, Diabetes Mellitus Type 2, Seizures Other Medical History: Reports: Sinus Problems. Denies: Blood Transfusion Reaction Laterality Cases: Left: Other, Bilateral: Tonsillectomy Other Surgeries: Yes: Cholecystectomy, Colonoscopy, Dilation and Curettage, Diagnostic Lap, EGD, Other Amputation: No Fractures: Yes (LEFT ARM FRACTURE REPAIR.) - *Social History Educational Level: Completed High School Smoking Status: Current every day smoker Tobacco Type: cigarettes # Packs/Day (cigarettes): 1 Alcohol Intake: never Alcohol Intake Frequency:: holidays/special occasions only Substance Use Type: denies use Occupational Status: unemployed Housing: house Household Members: family - Psychiatric History Expresses thoughts of harming self/others: None Suicide Plan Description: No Plan Pschychiatric History:: Reports:: Anxiety, Depression *Family Hx:: Anemia, Bleeding Disorder, Cancer, Coronary Artery Disease, Diabetes, Heart Attack, Hyperlipidemia, Hypertension, Stroke, Thyroid Disorder, Tuberculosis PONY ROUGHER history: 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 Meds Home Medications Medication Instructions Recorded Confirmed Type Dextroamphetamine/Amphetamine 20 mg PO BID 04/08/18 04/19/18 History [Dextroamp-Amphetamin 20 mg Tab] Allergies Allergy/AdvReac Type Severity Reaction Status Date / Time bacitracin Allergy Mild Hives Verified 04/16/18 13:49 [From Neosporin ([id number]-qiu-xrddk)] neomycin Allergy Mild Hives Verified 04/16/18 13:49 [From Neosporin (lyw-izf-ffpzx)] polymyxin B Allergy Mild Hives Verified 04/16/18 13:49 [From Neosporin (atx-fmm-imcjc)] sulfamethoxazole Allergy Mild Hives Verified 04/16/18 13:49 [From BACTRIM] trimethoprim [From BACTRIM] Allergy Mild Hives Verified 04/16/18 13:49 Exam Vital signs and Labs for Last 24 Hours: Temp Pulse Resp BP Pulse Ox 98.3 F 62 20 100/50 97 04/20/18 04:24 04/20/18 04:24 04/20/18 04:24 04/20/18 04:24 04/20/18 04:24 Laboratory Results - last 24 hr 04/20/18 05:29: WBC 6.6, RBC 4.41, Hgb 13.9, Hct 43.2, MCV 98.1, MCH 31.5 H, MCHC 32.2, RDW 13.8, Plt Count 223, MPV 8.9, Neut % (Auto) 52.8, Lymph % (Auto) 38.4, [place] % (Auto) 5.8, Eos % (Auto) 2.4, Baso % (Auto) 0.5, Neut # (Auto) 3.5 , Lymph # (Auto) 2.5, [place] # (Auto) 0.4, Eos # (Auto) 0.2, Baso # (Auto) 0.0 04/20/18 05:29: Sodium 141, Potassium 3.8, Chloride 108 H, Carbon Dioxide 26, Anion Gap 10.8, BUN 11, Creatinine 0.65, Estimated Creat Clear 115, Estimated GFR 108, Est GFR ( Amer) 130, Glucose 93, Calcium 8.2 L I & O for Last 24 hours: Intake & Output 04/17/18 04/18/18 04/19/18 04/20/18 11:59 11:59 11:59 11:59 Intake Total 1710 / 1710 Output Total 350 / 350 Balance 1360 / 1360 Weight 126 lb 4 oz - Constitutional no acute distress - *Routine Respiratory Exam Absent: respiratory distress - *Routine Cardiovascular Exam Present: RRR - *Routine Skin Exam Comments: Evaluation of the patient's right medial thigh/groin wounds reveal no spreading cellulitis. Some soft tissue swelling is noted and this is essentially improved versus prior evaluation. Results - Labs 04/20/18 05:29 04/20/18 05:29 Laboratory Results - last 24 hr 04/20/18 05:29: WBC 6.6, RBC 4.41, Hgb 13.9, Hct 43.2, MCV 98.1, MCH 31.5 H, MCHC 32.2, RDW 13.8, Plt Count 223, MPV 8.9, Neut % (Auto) 52.8, Lymph % (Auto) 38.4, [place] % (Auto) 5.8, Eos % (Auto) 2.4, Baso % (Auto) 0.5, Neut # (Auto) 3.5 , Lymph # (Auto) 2.5, [place] # (Auto) 0.4, Eos # (Auto) 0.2, Baso # (Auto) 0.0 04/20/18 05:29: Sodium 141, Potassium 3.8, Chloride 108 H, Carbon Dioxide 26, Anion Gap 10.8, BUN 11, Creatinine 0.65, Estimated Creat Clear 115, Estimated GFR 108, Est GFR ( Amer) 130, Glucose 93, Calcium 8.2 L Assessment and Plan (1) Abscess of groin, right Current visit: No Status: Acute Category: Medical Code(s): L02.214 - Cutaneous abscess of groin Wounds with clean base and margin. No spreading cellulitis. No need for acute surgical intervention Continue dressing changes (2) Febrile illness, acute Current visit: No Status: Acute Category: Medical Code(s): R50.9 - Fever, unspecified The patient is currently without fever and her white blood cell count is normal. She has been on ibuprofen and Tylenol and her fever curve has potentially been affected by this. Further evaluation and management as per primary service
--- NOTE | 2018-04-20 08:49 | Progress Note ---
Internal Medicine - PN: Subj *Date: 04/20/18 *Time: 08:47 Interval history: no fever last pm but had tyenol - seen by surg - see note Exam Vital signs and Labs for Last 24 Hours: Temp Pulse Resp BP Pulse Ox 97.9 F 44 L 18 119/72 96 04/20/18 07:53 04/20/18 07:53 04/20/18 07:53 04/20/18 07:53 04/20/18 07:53 Laboratory Results - last 24 hr 04/20/18 05:29: WBC 6.6, RBC 4.41, Hgb 13.9, Hct 43.2, MCV 98.1, MCH 31.5 H, MCHC 32.2, RDW 13.8, Plt Count 223, MPV 8.9, Neut % (Auto) 52.8, Lymph % (Auto) 38.4, [place] % (Auto) 5.8, Eos % (Auto) 2.4, Baso % (Auto) 0.5, Neut # (Auto) 3.5 , Lymph # (Auto) 2.5, [place] # (Auto) 0.4, Eos # (Auto) 0.2, Baso # (Auto) 0.0 04/20/18 05:29: Sodium 141, Potassium 3.8, Chloride 108 H, Carbon Dioxide 26, Anion Gap 10.8, BUN 11, Creatinine 0.65, Estimated Creat Clear 115, Estimated GFR 108, Est GFR ( Amer) 130, Glucose 93, Calcium 8.2 L I & O for Last 24 hours: Intake & Output 04/17/18 04/18/18 04/19/18 04/20/18 11:59 11:59 11:59 11:59 Intake Total 3110 / 3110 Output Total 350 / 350 Balance 2760 / 2760 Weight 131 lb 7 oz - Constitutional no acute distress - *Routine HEENT Exam Head: Present: normocephalic Eye: Present: EOMI, PERRL ENT: Present: mucous membranes dry - *Routine Neck Exam Present: supple - *Routine Respiratory Exam Present: CTA bilaterally - *Routine Cardiovascular Exam Present: RRR. Absent: murmur - *Routine Abdominal Exam Present: soft - *Routine Extremities Exam Absent: full ROM - *Routine Skin Exam Present: intact - *Routine Neurological Exam Present: alert, oriented X3, CN II-XII intact - Routine Psychiatric Exam Present: normal affect Assessment and Plan (1) Cellulitis of groin, right Current visit: Yes Status: Acute Category: Medical Code(s): L03.314 - Cellulitis of groin
--- NOTE | 2018-04-21 07:09 | Progress Note ---
Subjective Patient reports: no new complaints Exam Vital signs and Labs for Last 24 Hours: Temp Pulse Resp BP Pulse Ox 97.9 F 52 L 16 103/46 98 04/21/18 04:00 04/21/18 04:00 04/21/18 04:00 04/21/18 04:00 04/21/18 04:00 Laboratory Results - last 24 hr 04/20/18 05:29: Sodium 141, Potassium 3.8, Chloride 108 H, Carbon Dioxide 26, Anion Gap 10.8, BUN 11, Creatinine 0.65, Estimated Creat Clear 115, Estimated GFR 108, Est GFR ( Amer) 130, Glucose 93, Calcium 8.2 L 04/20/18 22:34: Vancomycin Trough 6.6 L I & O for Last 24 hours: Intake & Output 04/18/18 04/19/18 04/20/18 04/21/18 11:59 11:59 11:59 11:59 Intake Total 3110 / 3110 1705 / 1705 Output Total 350 / 350 600 / 600 Balance 2760 / 2760 1105 / 1105 Weight 131 lb 7 oz - Constitutional no acute distress - *Routine Respiratory Exam Absent: respiratory distress - *Routine Cardiovascular Exam Present: RRR - *Routine Skin Exam Comments: stable right medial thigh/groin wounds with no spreading cellulitis Progress Note: A&P (1) Cellulitis of groin, right Status: Acute Assessment and plan: slowly improving continue current wound care complete course of abx as per PCP (via PICC) Current Visit: Yes
[2018-04-21 08:22] VITALS: BP 126/73
--- NOTE | 2018-04-21 08:31 | Pharmacy Consult Notes ---
- Pharmacy Consult Date: 04/21/18 Time: 08:30 Referring provider: DR. OBRIEN Reason for Consult:: VANCOMYCIN TROUGH LEVEL Allergies and ADEs:: Allergies Allergy/AdvReac Type Severity Reaction Status Date / Time bacitracin Allergy Mild Hives Verified 04/16/18 13:49 [From Neosporin ([id number])] neomycin Allergy Mild Hives Verified 04/16/18 13:49 [From Neosporin ([id number])] polymyxin B Allergy Mild Hives Verified 04/16/18 13:49 [From Neosporin ([id number])] sulfamethoxazole Allergy Mild Hives Verified 04/16/18 13:49 [From BACTRIM] trimethoprim [From BACTRIM] Allergy Mild Hives Verified 04/16/18 13:49 Home Medications:: Home Medications Medication Instructions Recorded Confirmed Type Dextroamphetamine/Amphetamine 20 mg PO BID 04/08/18 04/19/18 History [Dextroamp-Amphetamin 20 mg Tab] Height: 1.52 m Weight: 59.619 kg Laboratory Results:: Laboratory Results - last 24 hr 04/20/18 22:34: Vancomycin Trough 6.6 L Medical History: Reports:: Anxiety, Depression, Heart Murmur, Hepatitis, Migraine, MRSA, Valvular Heart Disease Denies:: Cancer, Diabetes Mellitus Type 1, Diabetes Mellitus Type 2, Seizures Assessment and Plan (1) Cellulitis of groin, right Current visit: Yes Status: Acute Category: Medical Code(s): L03.314 - Cellulitis of groin - Assessment and plan all Dx Assessment and Plan for all problems:: BASED ON VANCOMYCIN TROUGH LEVEL, RECOMMEND VANCOMYCIN 1250 MG IV Q8H. PHARMACY WILL FOLLOW DAILY AND ADJUST APPROPRIATE.
--- NOTE | 2018-04-21 08:52 | Discharge Summary ---
General - General Admission date:: 04/19/18 Discharge date: 04/21/18 HPI HPI: pt with ongoing rt groin swelling and tenderness with assoc fever - was recent admit to surg - pt had i/d and has been having fevers and was on iv abx this weekend but reported ongoing fever and pain Hospital Course Hospital Course: pt has did well on av abx and was seen by surg -his is a 28-year-old female seen in consultation from Dr. Ron for evaluation regarding fever and right medial thigh/groin abscesses. Over the past few weeks she has undergone incision and drainage of complex right medial thigh/groin abscesses and has had spontaneous drainage of a few small abscesses in this general location. She has been on IV antibiotics and reports continued fevers. During her initial postoperative period she was readmitted for evaluation regarding fevers. Her white blood cell count was essentially normal and her temperature curve was normal during her hospitalization. She was subsequently discharged and evaluated in the outpatient setting. She states that a few more small abscesses were "opened in Dr. Ron's office". She has now returned to the emergency department complaining of fever and generalized "feeling bad". Evaluation of her wounds reveal no spreading cellulitis. Her white blood cell count remains normal. will complete course of iv abx Objective Vital signs: Temp Pulse Resp BP Pulse Ox 98.2 F 76 16 126/73 100 04/21/18 08:00 04/21/18 08:00 04/21/18 08:00 04/21/18 08:00 04/21/18 08:00 no acute distress - *Routine HEENT Exam Head: Present: normocephalic Eye: Present: EOMI, PERRL ENT: Absent: mucous membranes dry - *Routine Neck Exam Present: supple - *Routine Respiratory Exam Absent: respiratory distress - *Routine Cardiovascular Exam Present: RRR - *Routine Abdominal Exam Present: soft - *Routine Extremities Exam Absent: calf tenderness - *Routine Skin Exam Comments: healing rt groin lesions - *Routine Neurological Exam Present: alert, oriented X3, CN II-XII intact - Routine Psychiatric Exam Present: normal affect Results Labs on day of discharge: Labs from last 24 hours 04/20/18 22:34 Vancomycin Trough 6.6 L DS: Diagnosis - Discharge Diagnosis (1) Cellulitis of groin, right Status: Acute Discharge Plan - Patient Discharge Instructions ACTIVITY: Continue current activity DIET: continue same diet - Follow up Plan Follow up with: Davidson Chung MD [Staff Physician] - 1 week Disposition: Home, Self-Correction Medications: Home Medications Medication Instructions Recorded Confirmed Type Dextroamphetamine/Amphetamine 20 mg PO BID 04/08/18 04/19/18 History [Dextroamp-Amphetamin 20 mg Tab] Prescriptions/Medication Reconciliation: New Oxycodone HCl/Acetaminophen [Percocet 7.5/325mg tablet] 1 each PO Q8H PRN tablet PRN Reason: Moderate To Severe Pain DAPTOmycin [Cubicin 500mg vial] 350 mg IV Q24H vial Continue Dextroamphetamine/Amphetamine [Dextroamp-Amphetamin 20 mg Tab] 20 mg PO BID
== END 2018-04-21 09:40 | disposition home or self-care (01) ==
LOC: 2ND
PROVIDERS: ADMIT Emergency Medicine; ATTEND Emergency Medicine

== ENCOUNTER 2018-04-22 11:20 | Outpatient (CLI) | payer MEDICAID, SELFPAY ==
[2018-04-22 11:40] VITALS: BP 116/76; PULSE 79; RESP 18; TEMP 36.9
[2018-04-22 12:15] VITALS: BP 121/83; PULSE 91; RESP 18
== END 2018-04-22 12:45 | disposition home or self-care (01) ==
LOC: INF 11:29
PROVIDERS: Family Provider Emergency Medicine; PCP Emergency Medicine; Visit Provider Emergency Medicine
DX: L02.214 Cutaneous abscess of groin (principal); L98.9 Disorder of the skin and subcutaneous tissue, unspecified
CPT/HCPCS: 96365; J0878

== ENCOUNTER 2018-04-23 14:00 | Outpatient (CLI) | payer MEDICAID, SELFPAY ==
[2018-04-23 14:10] VITALS: BP 117/84; PULSE 85; RESP 18
[2018-04-23 14:45] VITALS: BP 137/81; PULSE 82; RESP 18
== END 2018-04-23 15:00 | disposition home or self-care (01) ==
LOC: INF 14:11
PROVIDERS: Family Provider Emergency Medicine; PCP Emergency Medicine; Visit Provider Emergency Medicine
DX: L02.214 Cutaneous abscess of groin (principal); L98.9 Disorder of the skin and subcutaneous tissue, unspecified
CPT/HCPCS: 96365; J0878

== ENCOUNTER → 2018-04-25 12:48 | Outpatient (CLI) | payer MEDICAID, SELFPAY ==
[2018-04-25 13:17] VITALS: BP 138/90; PULSE 104; RESP 18; TEMP 36.8; O2SAT 97
== END ==
PROVIDERS: Family Provider Emergency Medicine; PCP Emergency Medicine; Visit Provider Emergency Medicine
DX: L02.214 Cutaneous abscess of groin (principal); L98.9 Disorder of the skin and subcutaneous tissue, unspecified
CPT/HCPCS: 96365; J0878

== ENCOUNTER → 2018-04-28 13:47 | Outpatient (REF) | payer MEDICAID, SELFPAY ==
[2018-04-28 13:59] LABS: Microscopic, Urine URINE MICROSCOPIC (MICROSCOPIC)
[2018-04-28 14:09] LABS: Appearance,Urine SL CLOUDY (Clear); Blood, Urine Negative (Negative); Color,Urine DK YELLOW (Yellow); Glucose,Urine (UA) Negative (Negative); Ketones,Urine Negative (Negative); Leukocyte Esterase,Urine Negative (Negative); Nitrate,Urine Negative (Negative); Protein,Urine TRACE (Negative); Specific Gravity, Urine >= 1.030 (1.005-1.030)
[2018-04-28 14:33] LABS: Bilirubin,Urine Negative (Negative)
[2018-04-28 14:34] LABS: Bacteria,Urine 1+ /lpf; Squamous Epithelial Cell,Urine 20-50 #/hpf (0-5)
== END ==
LOC: LAB 13:47
PROVIDERS: Visit Provider Emergency Medicine
DX: R31.9 Hematuria, unspecified (principal)
CPT/HCPCS: 81001; 87086

== ENCOUNTER → 2018-05-05 13:39 | Outpatient (CLI) | payer MEDICAID, SELFPAY ==
--- NOTE | 2018-05-05 13:41 | CT_ITS ---
CT abdomen pelvis wo con CLINICAL INDICATION: Flank pain, hematuria, lower abdominal pain ITS.REASON: flank pain ORDERING PHYSICIAN: Chandana Ron MD PATIENT AGE: 28 years COMPARISON: 02/18/2018 TECHNIQUE: Axial images obtained with sagittal and coronal reformats. All CT scans at the facility use one or more dose reduction, viz: automated exposure control, ma/kV adjustment per patient size (including targeted exams where dose is matched to indication, i.e. head), or iterative reconstruction technique. PROCEDURE: Oral Contrast: None IV Contrast: None . FINDINGS: No acute finding in lung bases. The liver, spleen, adrenal glands, pancreas, and kidneys have unremarkable unenhanced CT appearance. There has been a prior cholecystectomy. No ductal dilatation. There is slight increased soft tissue density medial to the lesser curvature of the stomach and could be related to small nodes or unopacified vessels. No evidence of appendicitis or diverticulitis. There are some scattered gas-filled loops of small bowel with a few air-fluid levels nonspecific in the mid and left abdominal region. No obvious transition point. There are some diverticula noted within the sigmoid colon but no evidence of diverticulitis. Isodensity is present posterior to the uterus and may represent ovarian tissue with possible small cyst at 15 mm. No acute bony anomalies. Small sclerotic focus right ischium and may be due to a bone island. IMPRESSION: 1. Few scattered air-fluid levels in the mid and left abdomen within the small bowel nonspecific. Mild amount retained colonic feces with diverticulosis of the sigmoid colon but no evidence of diverticulitis. 2. Suspect 15 mm right ovarian cyst which is posterior to the uterus. 3. No renal or ureteral calculi
--- NOTE | 2018-05-05 13:41 | CA_ITS ---
PROCEDURE: 2-D M-mode and color Doppler study INDICATIONS FOR THE TEST: Chest pain+ COPD Heart Murmur+ Tobacco Smoking+ Palpitations+ Fatigue+ Syncope+ Edema+ Hypertension Diabetes Mellitus Rheumatic Fever SOB ABARCA Obesity Hyperlipidemia Family History HD Additional History MRSA, lightheaded, unknown ongoing fevers even with antibiotics PATIENT INFORMATION HEIGHT: 60 WEIGHT: 127 GENDER: Female B/P: 114/83 2-D/M-MODE INTERPRETATION: 2-D MEASUREMENTS OBSERVED VALUES IN CMS Right Ventricular Dimension (RVDd) 2.4 Interventricular Septum (Thickness)(IVsd) 0.8 Left Ventricular Internal Dimensions(LVIDd) 4.5 Left Ventricular Posterior Wall (Thickness)(LVPWd) 0.8 Aortic Root 2.6 Aortic Cusp Separation 2.0 Left Atrial Dimensions (LAD) 3.0 2D 1. Left atrium is normal size, left ventricle is normal size, there is no concentric left ventricular hypertrophy, visually estimated ejection fraction 55% with no obvious regional wall motion abnormality. 2. The right atrium and right ventricle are normal size and contractility. 3. The aortic, mitral and tricuspid valvular grossly normal. 4. The pulmonic valve is poorly visualized. 5. No significant pericardial effusion noted. DOPPLER INTERROGATION: Doppler interrogation of the aortic, mitral and tricuspid valvular presence of mild mitral and tricuspid regurgitation, tricuspid and jet velocity is insufficient for acquisition of the right ventricular systolic pressure, diastolic parameters are within normal range. CONCLUSION: 1. Normal left ventricular size, preserved left ventricular systolic function, visually estimated ejection fraction of 55% with no obvious regional wall motion abnormality, diastolic parameters are within normal range. 2. Mild mitral and tricuspid regurgitation 3. No significant pericardial effusion noted.
== END ==
PROVIDERS: Family Provider Emergency Medicine; PCP Emergency Medicine; Visit Provider Emergency Medicine
DX: R01.1 Cardiac murmur, unspecified (principal); R10.9 Unspecified abdominal pain; R10.2 Pelvic and perineal pain
CPT/HCPCS: 74176; 93306

== ENCOUNTER → 2019-03-30 13:58 | Outpatient (CLI) | payer MEDICAID, SELFPAY ==
[2019-03-30 14:55] LABS: Amphetamine/Metha Screen,Urine Negative ng/mL (<1000); Barbiturates Screen,Urine Negative ng/mL (<200); Benzodiazepines Screen,Urine Positive ng/mL (<200); Cannabinoid Screen,Urine Negative ng/mL (<50); Cocaine Screen,Urine Negative ng/mL (<300); Methadone Screen,Urine Negative ng/mL (<300); Opiate Screen,Urine Positive ng/mL (<300); Phencyclidine Screen,Urine Negative ng/mL (<25)
== END ==
PROVIDERS: Visit Provider Emergency Medicine
DX: F90.9 Attention-deficit hyperactivity disorder, unspecified type (principal)
CPT/HCPCS: 80305

== ENCOUNTER → 2019-10-10 15:00 | Outpatient (CLI) | payer BC, SELFPAY ==
[2019-10-10 16:54] LABS: Amphetamine/Metha Screen,Urine Negative ng/mL (<1000); Barbiturates Screen,Urine Negative ng/mL (<200); Benzodiazepines Screen,Urine Positive ng/mL (<200); Cannabinoid Screen,Urine Negative ng/mL (<50); Cocaine Screen,Urine Negative ng/mL (<300); Methadone Screen,Urine Negative ng/mL (<300); Opiate Screen,Urine Negative ng/mL (<300); Phencyclidine Screen,Urine Negative ng/mL (<25)
[2019-10-26 17:35] LABS: Opiates Negative (Cutoff=100)
== END ==
PROVIDERS: Visit Provider Emergency Medicine
DX: F90.9 Attention-deficit hyperactivity disorder, unspecified type (principal)
CPT/HCPCS: 80305; 80361; 80365; G0480

== ENCOUNTER → 2020-02-15 15:12 | Outpatient (CLI) | payer BC, SELFPAY ==
[2020-02-15 15:53] LABS: Alanine Aminotransferase 79 U/L (12-78); Albumin Level 4.5 g/dl (3.5-5.0); Albumin/Globulin Ratio 1.5 (1.1-1.8); Alkaline Phosphatase 96 U/L (38-126); Aspartate Amino Transferase 59 U/L (14-36); Basophils # 0.1 K/mm3 (0-0.2); Bilirubin,Total 0.3 mg/dl (0.2-1.3); Blood Urea Nitrogen 7 mg/dl (7-17); Carbon Dioxide 25 mmol/L (22.0-30.0); Chloride 104 mmol/L (98-107); Chol/HDL Ratio 2.2 (1-3.5); Cholesterol 158 mg/dl (140-200); Eosinophils # 0.3 K/mm3 (0.0-0.4); Eosinophils % 3.9 % (0.1-12.0); Estimated Glomerular Filt Rate 117 ml/min (>60); GFR (African American) 142 ML/MIN (>60); Glucose 91 mg/dl (74-100); HDL Cholesterol 73 mg/dl (40-60); Hematocrit 46.8 % (37.0-47.0); Hemoglobin 15.4 g/dL (12.2-16.2); Lymphocytes # 3.1 K/mm3 (0.7-4.5); Lymphocytes % 44.8 % (10-50); Mean Corpuscular HGB Conc 32.8 g/dL (31.8-35.4); Mean Corpuscular Hemoglobin 31.2 pg (27.0-31.2); Monocytes # 0.5 K/mm3 (0.1-1.0); Monocytes % 6.5 % (1.7-9.3); Neutrophils # 3.1 K/mm3 (1.8-7.8); Neutrophils % 43.8 % (37.0-80.0); Platelet Count 248 K/mm3 (142-424); Red Blood Count 4.93 M/mm3 (4.20-5.40); Red Cell Distribution Width 15.4 % (11.5-17.5); Sodium 137 mmol/L (136-145); Total Protein,Serum 7.5 g/dl (6.3-8.2); Triglycerides 93 mg/dl (30-150); VLDL Cholesterol 19 mg/dL (0-40)
[2020-02-15 15:56] LABS: Anion Gap 12.3 mEq/L (5-15); Potassium 4.3 mmoL/L (3.5-5.1)
[2020-02-15 16:04] LABS: Direct LDL Cholesterol 91.22 mg/dL (100-129)
[2020-02-15 16:10] LABS: T4 (Thyroxine) 12.1 ug/dl (5.53-11.0)
[2020-02-15 16:24] LABS: Thyroid Stimulating Hormone 0.39 uIU/mL (0.465-4.68)
[2020-02-17 07:38] LABS: Vitamin D 25 Hydroxy 12.1 ng/mL (30.0-100.0)
[2020-02-17 08:18] LABS: HIV Screen 4th Generation wRfx Non Reactive (Non Reactive); Hep A Ab, IgM Negative (Negative); Hep A Ab, Total Positive (Negative); Hep B Core Ab, Total Negative (Negative)
[2020-02-17 11:12] LABS: Hep B Surface Ab, Qual Reactive (.); Hepatitis B Surface Antigen Negative (Negative)
[2020-03-02 01:11] LABS: Hepatitis C Genotype 1a (.)
== END ==
PROVIDERS: Visit Provider Emergency Medicine
DX: F90.9 Attention-deficit hyperactivity disorder, unspecified type (principal); M54.9 Dorsalgia, unspecified; R76.8 Other specified abnormal immunological findings in serum; E55.9 Vitamin D deficiency, unspecified; K75.9 Inflammatory liver disease, unspecified
CPT/HCPCS: 80053; 80061; 82652; 84436; 84443; 85025; 86703; 86704; 86706; 86708; 87340; 87522; G0432

== ENCOUNTER 2020-07-29 16:57 | Emergency (ER) | payer BC, SELFPAY ==
[2020-07-29 17:28] VITALS: BP 136/81; PULSE 81; RESP 19; TEMP 37; O2SAT 98; BMI 24.5
--- NOTE | 2020-07-29 17:38 | HMH.EDUTC ---
[facility] [place] Impression: Otitis media, serous, TM rupture Disposition: Home, Self-Care Condition on Discharge: Good Instructions: DI for Tympanic Membrane Perforation-Adult Additional Instructions: Start antibiotic as soon as possible and be sure to take as ordered for full length of time even though he should start feeling better in 24-48 hours. Tylenol or Motrin as needed for pain or fever Encourage fluids, water, Gatorade, Powerade, Pedialyte if infant/toddler/child Warm compresses often helps when placed over ear Return immediately for new or worsening symptoms no noticeable improvement in 48-72 hours and in 10-14 days to ensure the ears are return to baseline. Follow-up with primary care this week do not let any water get in ear do not stick anything in ear Prescriptions: cephALEXin [Keflex 500mg Cap] 500 mg PO BID 10 Days #20 cap Transmission Status: Pending to [facility] Referrals: Chandana Ron MD [Primary Care Provider] - Time of Disposition: 17:43 Medical Decision Making - Chato Inquiry Pt receiving controlled substance: No Vital Signs: 07/29/20 17:28 Temperature 98.6 F Temperature Source Oral Pulse Rate [Right Brachial] 81 Respiratory Rate 19 Blood Pressure [Right Arm] 136/81 Blood Pressure Mean [Right Arm] 99 Blood Pressure Source [Right Arm] Automatic Cuff Blood Pressure Position [Right Arm] Sitting 02 Sat by Pulse Oximetry 98 Oxygen Delivery Method Room Air [facility] [place] - General Chief complaint: Urgent [facility] Stated complaint: possible busted R ear drum from Qtip Time Seen by Provider: 07/29/20 17:38 Mode of Arrival: Ambulatory Source of Information: Patient Limitations: No Limitations Description of Symptoms (Recalled from Triage Doc. by RN): PATIENT C/O POSSIBLE BUSTED RIGHT EAR DRUM. SINCE THURSDAY SHE HAS HAD PAIN TO RIGHT EAR/DOWN NECK AND HEARING LOSS HEENT Symptoms (Recalled from RN notes): Yes Resp Symptoms (Recalled from RN notes): No Skin Symptoms (Recalled from RN notes): No MS Symptoms (Recalled from RN notes): No Functional Status (Recalled from RN notes): WNL - History of Present Illness Provider Complaint: 30 yr old female presents for pain in rt ear. Pt states she was cleaning her ear out with q tip on and hit something that hurt and since then having problems hearing and pain. - Related Data Home Medications Medication Instructions Recorded Confirmed Cholecalciferol (Vitamin D3) 1,000 unit PO DAILY 07/29/20 07/29/20 [Vitamin D3 1,000 Unit Cap] Omeprazole 20 mg PO DAILY 07/29/20 07/29/20 Previous Rx's Medication Instructions Recorded tizanidine 4 mg capsule 4 mg PO TID PRN 30 Days #90 cap 07/18/20 cephALEXin [Keflex 500mg Cap] 500 mg PO BID 10 Days #20 cap 07/29/20 Allergies Allergy/AdvReac Type Severity Reaction Status Date / Time bacitracin Allergy Mild Hives Verified 04/06/20 12:09 [From Neosporin ([id number])] neomycin Allergy Mild Hives Verified 04/06/20 12:09 [From Neosporin ([id number])] polymyxin B Allergy Mild Hives Verified 04/06/20 12:09 [From Neosporin ([id number]-[id number])] sulfamethoxazole Allergy Mild Hives Verified 04/06/20 12:09 [From BACTRIM] trimethoprim [From BACTRIM] Allergy Mild Hives Verified 04/06/20 12:09 - Worker's Comp Is this a Worker's Comp case?: No [facility] History - Hepatitis A Screen Drug use history?: No High risk sexual behaviors?: No History of sexually transmitted infection?: No Currently employed?: No Childcare worker?: No Do you have indoor plumbing?: Yes Do you have electricity?: Yes Attestation statement:: This patient has been screened for Hepatitis A risk factors. I have reviewed the patient's past medical history: Yes Medical History: Reports:: Aneurysm, Anxiety, Depression, Heart Murmur, Hepatitis, Migraine, MRSA, Valvular Heart Disease Denies:: Cancer, Diabetes Mellitus Type 1, Diabetes Mellitus Type 2
[2020-07-29 17:45] VITALS: BP 136/81; PULSE 81; RESP 19; TEMP 37; O2SAT 98
== END 2020-07-29 17:48 | disposition home or self-care (01) ==
PROVIDERS: Emergency Provider Nurse Practitioner Family; PCP Emergency Medicine
DX: H65.01 Acute serous otitis media, right ear (principal); F17.210 Nicotine dependence, cigarettes, uncomplicated; H72.91 Unspecified perforation of tympanic membrane, right ear; N17.9 Acute kidney failure, unspecified; F41.8 Other specified anxiety disorders; G43.709 Chronic migraine without aura, not intractable, without status migrainosus; F19.21 Other psychoactive substance dependence, in remission
CPT/HCPCS: 99201

== ENCOUNTER 2020-08-16 17:04 | Emergency (ER) | payer BC, SELFPAY ==
[2020-08-16 17:18] VITALS: BP 132/86; PULSE 95; RESP 20; TEMP 37.1; O2SAT 97; BMI 25.4
--- NOTE | 2020-08-16 17:22 | XR_ITS ---
PROCEDURE: XR CHEST PORTABLE CLINICAL HISTORY: SOB COMPARISON: CR CXR-PICC CHEST PORTABLE-PICC PLACEMENT from 08/19/2017 CR [id number] XR chest portable PICC plac from 02/18/2018 CR [id number] XR chest portable PICC plac from 04/20/2018 FINDINGS: The cardiomediastinal silhouette and pulmonary vascularity are within normal limits. No lobar consolidation or collapse is evident. There is an opacity in the right midlung laterally which may be due to artifact. No acute bony abnormalities. IMPRESSION: No acute findings. Dictated by: Bashir Jorgensen MD 08/16/2020 18:06 Bashir Jorgensen MD in [place] 08/16/2020 18:06
--- NOTE | 2020-08-16 17:45 | HMH.EDSOB ---
ED Disposition Clinical Impression: Viral URI with cough Disposition: Home, Self-Care Condition on Discharge: Good Referrals: Chandana Ron MD [Primary Care Provider] - - Critical Care Critical Care Time: No Attestation: On 08/16/20, the high probability of a clinically significant, sudden or life threatening deterioration of the following system(s) required my full and direct attention, intervention and personal management. The time I documented below is in addition to time spent performing reported procedures but includes the following listed in this critical care notation. Medical Decision Making - Chato Inquiry Pt receiving controlled substance: No Vital Signs: 08/16/20 17:18 Temperature 98.7 F Temperature Source Oral Pulse Rate [Radial] 95 H Respiratory Rate 20 Blood Pressure [Right Arm] 132/86 Blood Pressure Mean [Right Arm] 101 Blood Pressure Position [Right Arm] Sitting 02 Sat by Pulse Oximetry 97 Oxygen Delivery Method Room Air Orders (Tests/Meds): ORDERS Category Date Time Status Chest XR 2 view (NOT portable) [XR chest 2V] Stat Exams 08/16/20 17:22 Ordered Covid-19 Nasal PCR Sendout [facility] 08/16/20 17:22 Ordered Medical Decision Narrative: 30-year-old female who presents with 3 days of progressively worsening symptoms including cough fever, shortness of breath, body aches, chills. Patient has several exposures to possible COVID-19 infection. 1+ contact. Patient is hemodynamically stable and SPO2 is greater than 90%. No significant respiratory distress and with loss of taste as a symptom the patient probably has a COVID-19 infection. No further testing will be needed other than a nasal swab to verify COVID-19. In the event this is negative she likely is a viral URI which will require conservative management. She is given instructions regarding quarantine until test results and conservative management and discharged home in good condition. Resp/SOB HPI - General Chief Complaint: Shortness of Breath/Dyspnea Stated Complaint: SOB,Cough Time Seen by Provider: 08/16/20 17:30 Mode of Arrival: Ambulatory Source of Information: Patient Limitations: No Limitations Description of Symptoms (Recalled from ER Triage Doc. by RN): TO ED PER [employer] CAR WITH C/O HEADACHE X 3 DAYS, COUGH STARTED YESTERDAY, SOB, TEMP AT HOME OF 100.5 PT STATES EXPOSED TO FRIEND THAT TESTED FOR COVID. - History of Present Illness 30-year-old female who presents with sore throat for 3 days with intermittent subjective fever now presenting with worsening cough over the last day worsening fever and body aches with intermittent shortness of breath. Cough is nonproductive. She states that she was around someone who tested positive earlier this week for COVID-19. Her younger sister also has similar symptoms. No medication taken prior to arrival. MD Complaint: shortness of breath, cough Onset (ago): day(s) Severity: mild Consistency/Duration: constant Relieving factors: nothing Exacerbating factors: nothing Associated symptoms: fever, cough, other (Body aches) Treatment prior to arrival: none - Related Data Home oxygen amount: none Home Medications Medication Instructions Recorded Confirmed Cholecalciferol (Vitamin D3) 1,000 unit PO DAILY 07/29/20 07/29/20 [Vitamin D3 1,000 Unit Cap] Omeprazole 20 mg PO DAILY 07/29/20 07/29/20 Previous Rx's Medication Instructions Recorded tizanidine 4 mg capsule 4 mg PO TID PRN 30 Days #90 cap 07/18/20 cephALEXin [Keflex 500mg Cap] 500 mg PO BID 10 Days #20 cap 07/29/20 Allergies Allergy/AdvReac Type Severity Reaction Status Date / Time bacitracin Allergy Mild Hives Verified 04/06/20 12:09 [From Neosporin ([id number])] neomycin Allergy Mild Hives Verified 04/06/20 12:09 [From Neosporin ([id number])] polymyxin B Allergy Mild Hives Verified 04/06/20 12:09 [From Neosporin ([id number])] sulfamethoxazole Aller
[2020-08-16 18:24] VITALS: BP 115/74; PULSE 87; RESP 16; TEMP 36.6; O2SAT 98
[2020-08-17 00:43] LABS: Adenovirus,PCR Not Detected (NotDetected); Bordetella Pertussis Not Detected (NotDetected); Chlamydophila Pneumoniae, PCR Not Detected (NotDetected); Coronavirus 19, PCR Not Detected (NotDetected); Coronavirus 229E Not Detected (NotDetected); Coronavirus NL63 Not Detected (NotDetected); Coronavirus OC43 Not Detected (NotDetected); Coronovirus HKU1,PCR Not Detected (NotDetected); Human Metapneumovirus Not Detected (NotDetected); Influenza A, PCR Not Detected (NotDetected); Influenza AH1, 2009 Not Detected (NotDetected); Influenza AH1, PCR Not Detected (NotDetected); Influenza AH3,PCR Not Detected (NotDetected); Influenza B, PCR Not Detected (NotDetected); Mycoplasma Pneumoniae, PCR Not Detected (NotDetected); Parainfluenza 1, PCR Not Detected (NotDetected); Parainfluenza 2, PCR Not Detected (NotDetected); Parainfluenza 3, PCR Not Detected (NotDetected); Parainfluenza 4, PCR Not Detected (NotDetected); Respiratory Syncytial Virus Not Detected (NotDetected); Rhinovirus/Enterovirus Not Detected (NotDetected)
== END 2020-08-16 18:26 | disposition home or self-care (01) ==
PROVIDERS: Emergency Provider Student in an Organized Health Care Education/Training Program; PCP Emergency Medicine
DX: Z20.828 Contact with and (suspected) exposure to other viral communicable diseases (principal); J06.9 Acute upper respiratory infection, unspecified; F41.8 Other specified anxiety disorders; R01.1 Cardiac murmur, unspecified; G43.709 Chronic migraine without aura, not intractable, without status migrainosus; F19.11 Other psychoactive substance abuse, in remission; F17.210 Nicotine dependence, cigarettes, uncomplicated; Z88.2 Allergy status to sulfonamides; Z88.8 Allergy status to other drugs, medicaments and biological substances; Z79.899 Other long term (current) drug therapy
CPT/HCPCS: 71045; 87581; 87633; 87798; 99282; U0003; U0004

== ENCOUNTER 2020-10-29 00:04 | Emergency (ER) | payer OTHER, BC, SELFPAY ==
[2020-10-29 00:24] VITALS: BP 133/95; PULSE 112; RESP 14; TEMP 37.3; O2SAT 98
[2020-10-29 00:30] VITALS: BMI 27.3
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
[2020-10-29 00:57] LABS: Microscopic, Urine URINE MICROSCOPIC (MICROSCOPIC)
[2020-10-29 00:58] LABS: Basophils # 0.1 K/mm3 (0-0.2); Basophils % 0.5 % (0.1-2.0); Eosinophils # 0.1 K/mm3 (0.0-0.4); Eosinophils % 0.9 % (0.1-12.0); Hemoglobin 16.1 g/dL (12.2-16.2); Lymphocytes # 3.3 K/mm3 (0.7-4.5); Mean Corpuscular HGB Conc 33.5 g/dL (31.8-35.4); Mean Corpuscular Hemoglobin 32.1 pg (27.0-31.2); Mean Platelet Volume 9.1 fl (7.4-10.4); Monocytes # 0.5 K/mm3 (0.1-1.0); Monocytes % 4.6 % (1.7-9.3); Neutrophils # 6.2 K/mm3 (1.8-7.8); Platelet Count 221 K/mm3 (142-424); Red Cell Distribution Width 13.7 % (11.5-17.5); White Blood Count 10.1 K/mm3 (4.8-10.8)
[2020-10-29 01:04] LABS: Urine Pregnancy, HCG Qual. Negative (Negative)
[2020-10-29 01:09] LABS: Appearance,Urine CLEAR (Clear); Bilirubin,Urine Negative (Negative); Blood, Urine Negative (Negative); Color,Urine YELLOW (Yellow); Glucose,Urine (UA) Negative (Negative); Ketones,Urine Negative (Negative); Leukocyte Esterase,Urine Negative (Negative); Nitrate,Urine Negative (Negative); Protein,Urine Negative (Negative); Specific Gravity, Urine >= 1.030 (1.005-1.030); Urobilinogen,Urine 0.2 EU/dl (0.2)
[2020-10-29 01:21] LABS: Amorphous Sediment,Urine 1+ /lpf; Mucus,Urine 2+ /lpf
[2020-10-29 01:33] LABS: Alanine Aminotransferase 96 U/L (12-78); Albumin Level 4.8 g/dl (3.5-5.0); Alkaline Phosphatase 112 U/L (38-126); Anion Gap 11.1 mEq/L (5-15); Aspartate Amino Transferase 61 U/L (14-36); Bilirubin,Direct 0.3 mg/dl (0.0-0.4); Bilirubin,Indirect 0.1 mg/dL (0.0-0.9); Bilirubin,Total 0.4 mg/dl (0.2-1.3); Bilirubin,Unconjugated 0.1 mg/dL (0.0-1.1); Blood Urea Nitrogen 11 mg/dl (7-17); Carbon Dioxide 27 mmol/L (22.0-30.0); Chloride 104 mmol/L (98-107); Creatinine Clearance Estimated 136 mL/min (50-200); Estimated Glomerular Filt Rate 117 ml/min (>60); GFR (African American) 141 ML/MIN (>60); Glucose 107 mg/dl (74-100); Potassium 4.1 mmoL/L (3.5-5.1); Sodium 138 mmol/L (136-145); Total Protein,Serum 8.9 g/dl (6.3-8.2)
[2020-10-29 02:41] VITALS: BP 109/79; PULSE 89; RESP 20; TEMP 36.9; O2SAT 99
== END 2020-10-29 02:44 | disposition home or self-care (01) ==
PROVIDERS: Emergency Provider Emergency Medicine; PCP Emergency Medicine
DX: S16.1XXA Strain of muscle, fascia and tendon at neck level, initial encounter (principal); S00.03XA Contusion of scalp, initial encounter; S39.012A Strain of muscle, fascia and tendon of lower back, initial encounter; S39.91XA Unspecified injury of abdomen, initial encounter; V27.0XXA Motorcycle driver injured in collision with fixed or stationary object in nontraffic accident, initial encounter; Y92.488 Other paved roadways as the place of occurrence of the external cause; F17.210 Nicotine dependence, cigarettes, uncomplicated
CPT/HCPCS: 70450; 71045; 71260; 72125; 72128; 72131; 72170; 74177; 80048; 80076; 81001; 81025; 85025; 96365; 96375; 99281; Q9967

== ENCOUNTER → 2020-11-23 13:52 | Outpatient (CLI) | payer BC, SELFPAY | PROVIDERS: PCP Emergency Medicine; Visit Provider Emergency Medicine | DX: Z20.822 Contact with and (suspected) exposure to COVID-19 (principal) | CPT/HCPCS: U0003 ==

== ENCOUNTER → 2020-12-07 15:22 | Outpatient (CLI) | payer BC, SELFPAY ==
--- NOTE | 2020-12-07 15:22 | US_ITS ---
PROCEDURE: US TRANSVAGINAL CLINICAL INDICATION: fibroids and ovarian cyst COMPARISON: CT CT ABDOMEN PELVIS W CON from 10/29/2020 FINDINGS: UTERUS: 7cm x 6cmx 4cm with a combined endometrial thickness of 8.3mm LEFT OVARY: [id number] with a volume of 20ml. RIGHT OVARY: [id number] with a volume of 14.2ml. The uterus is retroverted. Nabothian cysts are present. There is a 3 cm area of heterogeneous echogenicity within the fundus of the uterus anteriorly consistent with fibroid. This corresponds to the CT abnormality. Multiple small follicles are present in both ovaries which are slightly enlarged raising the suspicion polycystic ovaries. A septated cyst is present in the left ovary measuring 2 cm. No cul-de-sac fluid. IMPRESSION: 1. Retroverted uterus with 3 cm fibroid in the fundal region on the right 2. Polycystic appearance of the ovaries with a 2 cm complex left ovarian cyst Dictated by: Bashir Jorgensen MD 12/08/2020 06:40 Bashir Jorgensen MD in [facility] 12/08/2020 06:40
== END ==
PROVIDERS: PCP Emergency Medicine; Visit Provider Nurse Practitioner Obstetrics & Gynecology
DX: D21.9 Benign neoplasm of connective and other soft tissue, unspecified (principal); N83.209 Unspecified ovarian cyst, unspecified side
CPT/HCPCS: 76830

== ENCOUNTER 2020-12-13 22:26 | Emergency (ER) | payer BC, SELFPAY ==
[2020-12-13 22:27] VITALS: BP 125/87; PULSE 85; RESP 18; TEMP 36.8; O2SAT 100; BMI 26.7
--- NOTE | 2020-12-13 22:59 | CT_ITS ---
PROCEDURE: CT ABDOMEN PELVIS W CON CLINICAL INDICATION: abdominal pain Abdominal pain with nausea and vomiting COMPARISON: CT CT ABDOMEN PELVIS W CON from 10/29/2020 TECHNIQUE: IV Contrast: 75ML Isovue 370 Oral Contrast None Axial images obtained with sagittal and coronal reformats. All CT scans at the facility use one or more dose reduction, viz: automated exposure control, ma/kV adjustment per patient size (including targeted exams where dose is matched to indication, i.e. head), or iterative reconstruction technique. FINDINGS: LOWER THORAX: No acute finding ABDOMEN & PELVIS: The liver, spleen, and pancreas has an unremarkable appearance. There has been a prior cholecystectomy. Mildly prominent right adrenal gland not significantly changed. The left adrenal gland has an unremarkable appearance. There are a few small retroperitoneal lymph nodes. No renal or ureteral calculi. Small right renal cyst is noted at 5 mm. No evidence of appendicitis. No intestinal obstruction or free air. There is a mild amount of retained colonic feces. The uterus is enlarged with multiple hypodensities and may be related to fibroid involvement. There is a small amount fluid in the cul-de-sac. Left adnexa is prominent as before. There is mild chronic wedging of T11 IMPRESSION: 1. No acute finding. 2. Large uterus with multiple hypodensities suggesting fibroid involvement. 3. Prominent left ovary. Pelvic ultrasound may provide further evaluation. 4. No change mildly prominent right adrenal gland Dictated by: Bashir Jorgensen MD 12/14/2020 06:50 Bashir Jorgensen MD in [facility] 12/14/2020 06:50
--- NOTE | 2020-12-13 23:06 | HMH.EDGENADL ---
ED Disposition Clinical Impression: Nausea and vomiting Qualifiers: Vomiting type: unspecified Vomiting Intractability: non-intractable Qualified Code(s): R11.2 - Nausea with vomiting, unspecified Disposition: Home, Self-Care Condition on Discharge: Fair Instructions: DI for Acute Abdominal Pain Additional Instructions: You have been evaluated for nausea and vomiting. Please eat a bland diet. Take medications as prescribed. Take Zofran as needed for vomiting. Follow-up with your primary care doctor. 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 Return to the emergency department if you have any new or worsening symptoms. Prescriptions: Promethazine HCl [Phenergan 12.5mg tablet] 12.5 mg PO Q6H PRN #6 tab PRN Reason: Nausea And Vomiting Transmission Status: Pending to [facility] Referrals: Chandana Ron MD [Primary Care Provider] - Time of Disposition: 01:06 - Critical Care Critical Care Time: No Attestation: On 12/13/20, the high probability of a clinically significant, sudden or life threatening deterioration of the following system(s) required my full and direct attention, intervention and personal management. The time I documented below is in addition to time spent performing reported procedures but includes the following listed in this critical care notation. Medical Decision Making - Medical Records Medical records reviewed: Yes: I reviewed the patient's medical records. - Chato Inquiry Pt receiving controlled substance: No Vital Signs: 12/13/20 22:27 12/14/20 00:18 Temperature 98.2 F Temperature Source Oral Pulse Rate [Left Radial] 85 97 H Respiratory Rate 18 17 Blood Pressure [Right Arm] 125/87 119/80 Blood Pressure Mean [Right Arm] 99 93 Blood Pressure Source [Right Arm] Automatic Cuff Automatic Cuff Blood Pressure Position [Right Arm] Sitting Supine 02 Sat by Pulse Oximetry 100 97 Oxygen Delivery Method Room Air Room Air - Lab Data Lab Results 12/13/20 23:02: Urine Color Yellow, Urine Appearance Clear, Urine pH 5.5, Ur Specific [place] >= 1.030, Urine Protein 1+, Urine Glucose (UA) Negative, Urine Ketones Negative, Urine Blood Negative, Urine Nitrate Negative, Urine Bilirubin Negative, Urine Urobilinogen 0.2, Ur Leukocyte Esterase Negative, Urine WBC 3-5, Ur Squamous Epith Cells 5-10, Urine Bacteria 1+, Fine Granular Casts 3-5, Urine Mucus 1+ 12/13/20 23:02: WBC 10.3, RBC 4.80, Hgb 15.4, Hct 46.0, MCV 95.9, MCH 32.1 H, MCHC 33.5, RDW 13.2, Plt Count 234, MPV 9.0, Neut % (Auto) 44.5, Lymph % (Auto) 46.5, [place] % (Auto) 5.4, Eos % (Auto) 3.0, Baso % (Auto) 0.7, Neut # (Auto) 4.6, Lymph # (Auto) 4.8 H, [place] # (Auto) 0.6, Eos # (Auto) 0.3, Baso # (Auto) 0.1 12/13/20 23:02: Urine HCG, Qual Negative 12/13/20 23:02: Sodium 141, Potassium 4.2, Chloride 101, Carbon Dioxide 31 H, Anion Gap 13.2, BUN 12, Creatinine 0.70, Estimated Creat Clear 114, Estimated GFR 98, Est GFR ( Amer) 118, Glucose 97, Calcium 9.9, Total Bilirubin 0.5, AST 53 H, ALT 105 H, Alkaline Phosphatase 135 H, Total Protein 8.6 H, Albumin 4.9, Globulin 3.7 H, Albumin/Globulin Ratio 1.3, Lipase 67 Result diagrams: 12/13/20 23:02 12/13/20 23:02 Orders (Tests/Meds): ED MEDICATIONS Generic Name Dose Route Start Last Admin Trade Name Freq PRN Reason Stop Dose Admin Sodium Chloride 1,000 mls @ 999 mls/hr 12/13/20 23:00 12/13/20 23:21 Sod Chlor 0.9% 1000ml Bag IV 12/14/20 00:00 999 mls/hr .Q1H1M SAMM Administration Sodium Chloride 8 ml 12/13/20 23:00 Sodium Chloride 0.9% 10ml Vial IV 01/12/21 22:59 NEEDED PRN dilute pepcid Discontinued Medications Generic Name Dose Route Start Last Admin Trade Name Freq PRN Reason Stop Dose Admin Famotidine 40 mg 12/13/20 23:00 12/13/20 23:21 Famotidine 20mg/2ml Vial IV 12/13/20 23:01 40 mg ONCE ONE Administration Iopamidol 75 ml 12/14/20 01:13 12/13/20 23:45 Iopamidol-370 (76%);100ml Bottle IV 12/14/20 01:14 75
[2020-12-13 23:07] LABS: Microscopic, Urine URINE MICROSCOPIC (MICROSCOPIC)
[2020-12-13 23:09] LABS: Appearance,Urine CLEAR (Clear); Bilirubin,Urine Negative (Negative); Blood, Urine Negative (Negative); Color,Urine YELLOW (Yellow); Glucose,Urine (UA) Negative (Negative); Ketones,Urine Negative (Negative); Leukocyte Esterase,Urine Negative (Negative); Nitrate,Urine Negative (Negative); PH,Urine 5.5 (5.0-8.5); Protein,Urine 1+ (Negative); Specific Gravity, Urine >= 1.030 (1.005-1.030); Urobilinogen,Urine 0.2 EU/dl (0.2)
[2020-12-13 23:10] LABS: Basophils # 0.1 K/mm3 (0-0.2); Basophils % 0.7 % (0.1-2.0); Eosinophils # 0.3 K/mm3 (0.0-0.4); Hemoglobin 15.4 g/dL (12.2-16.2); Lymphocytes # 4.8 K/mm3 (0.7-4.5); Lymphocytes % 46.5 % (10-50); Mean Corpuscular HGB Conc 33.5 g/dL (31.8-35.4); Mean Corpuscular Hemoglobin 32.1 pg (27.0-31.2); Mean Corpuscular Volume 95.9 fl (81-99); Monocytes # 0.6 K/mm3 (0.1-1.0); Monocytes % 5.4 % (1.7-9.3); Neutrophils # 4.6 K/mm3 (1.8-7.8); Neutrophils % 44.5 % (37.0-80.0); Platelet Count 234 K/mm3 (142-424); Red Cell Distribution Width 13.2 % (11.5-17.5); White Blood Count 10.3 K/mm3 (4.8-10.8)
[2020-12-13 23:14] LABS: Chloride 101 mmol/L (98-107); Potassium 4.2 mmoL/L (3.5-5.1); Sodium 141 mmol/L (136-145); Urine Pregnancy, HCG Qual. Negative (Negative)
[2020-12-13 23:16] LABS: Alanine Aminotransferase 105 U/L (12-78); Alkaline Phosphatase 135 U/L (38-126); Aspartate Amino Transferase 53 U/L (14-36); Bilirubin,Total 0.5 mg/dl (0.2-1.3); Blood Urea Nitrogen 12 mg/dl (7-17); Creatinine Clearance Estimated 114 mL/min (50-200); Estimated Glomerular Filt Rate 98 ml/min (>60); GFR (African American) 118 ML/MIN (>60)
[2020-12-13 23:17] LABS: Albumin Level 4.9 g/dl (3.5-5.0); Albumin/Globulin Ratio 1.3 (1.1-1.8); Anion Gap 13.2 mEq/L (5-15); Calcium 9.9 mg/dl (8.4-10.2); Carbon Dioxide 31 mmol/L (22.0-30.0); Globulin 3.7 g/dL (1.3-3.2); Glucose 97 mg/dl (74-100); Lipase 67 U/L (23-300); Total Protein,Serum 8.6 g/dl (6.3-8.2)
[2020-12-13 23:27] LABS: Bacteria,Urine 1+ /lpf; Mucus,Urine 1+ /lpf
[2020-12-14 00:18] VITALS: BP 119/80; PULSE 97; RESP 17; O2SAT 97
[2020-12-14 01:00] VITALS: BP 108/81; PULSE 87; RESP 18; O2SAT 96
[2020-12-14 01:34] VITALS: BP 104/76; PULSE 88; RESP 16; TEMP 36.6; O2SAT 95
[2020-12-18 14:19] LABS: Neisseria gonorrhoeae, NAA Negative (Negative)
== END 2020-12-14 01:43 | disposition home or self-care (01) ==
PROVIDERS: Emergency Provider Emergency Medicine; PCP Emergency Medicine
DX: R11.2 Nausea with vomiting, unspecified (principal); R10.13 Epigastric pain; K73.9 Chronic hepatitis, unspecified; F41.8 Other specified anxiety disorders; G43.709 Chronic migraine without aura, not intractable, without status migrainosus; I51.9 Heart disease, unspecified; F17.210 Nicotine dependence, cigarettes, uncomplicated; Z79.899 Other long term (current) drug therapy
CPT/HCPCS: 74177; 80053; 81001; 81025; 83690; 85025; 87491; 87591; 96365; 96375; 99283; Q9967

== ENCOUNTER → 2021-01-04 12:03 | Outpatient (CLI) | payer BC, SELFPAY ==
[2021-01-04 13:02] LABS: Basophils % 0.4 % (0.1-2.0); Eosinophils # 0.1 K/mm3 (0.0-0.4); Eosinophils % 1.3 % (0.1-12.0); Hematocrit 52.1 % (37.0-47.0); Lymphocytes # 2.7 K/mm3 (0.7-4.5); Mean Corpuscular HGB Conc 32.6 g/dL (31.8-35.4); Mean Corpuscular Hemoglobin 31.9 pg (27.0-31.2); Mean Corpuscular Volume 97.9 fl (81-99); Mean Platelet Volume 9.6 fl (7.4-10.4); Monocytes # 0.3 K/mm3 (0.1-1.0); Monocytes % 3.7 % (1.7-9.3); Neutrophils # 5.6 K/mm3 (1.8-7.8); Neutrophils % 63.6 % (37.0-80.0); Platelet Count 210 K/mm3 (142-424); Red Blood Count 5.32 M/mm3 (4.20-5.40); Red Cell Distribution Width 13.3 % (11.5-17.5); White Blood Count 8.9 K/mm3 (4.8-10.8)
[2021-01-04 13:25] LABS: Chloride 108 mmol/L (98-107); INR 0.92 (0.9-1.1); Potassium 4.7 mmoL/L (3.5-5.1); Prothrombin Time 10.9 seconds (10.1-12.5); Sodium 139 mmol/L (136-145)
[2021-01-04 13:28] LABS: Alanine Aminotransferase 124 U/L (12-78); Albumin Level 5.3 g/dl (3.5-5.0); Albumin/Globulin Ratio 1.6 (1.1-1.8); Alkaline Phosphatase 119 U/L (38-126); Anion Gap 15.7 mEq/L (5-15); Aspartate Amino Transferase 65 U/L (14-36); Bilirubin,Total 0.7 mg/dl (0.2-1.3); Blood Urea Nitrogen 9 mg/dl (7-17); Carbon Dioxide 20 mmol/L (22.0-30.0); Estimated Glomerular Filt Rate 117 ml/min (>60); GFR (African American) 141 ML/MIN (>60); Globulin 3.4 g/dL (1.3-3.2); Total Protein,Serum 8.7 g/dl (6.3-8.2)
[2021-01-04 13:29] LABS: Calcium 10.8 mg/dl (8.4-10.2); Glucose 97 mg/dl (74-100)
[2021-01-05 08:14] LABS: HIV Screen 4th Generation wRfx Non Reactive (Non Reactive); Hep A Ab, IgM Negative (Negative); Hep A Ab, Total Positive (Negative); Hep B Core Ab, Total Negative (Negative)
[2021-01-05 19:16] LABS: Hep B Surface Ab, Qual Reactive (.); Hepatitis B Surface Antigen Negative (Negative)
[2021-01-09 13:54] LABS: Hepatitis C Genotype 1a (.)
== END ==
PROVIDERS: Visit Provider Emergency Medicine
DX: B19.20 Unspecified viral hepatitis C without hepatic coma (principal)
CPT/HCPCS: 36415; 80053; 85025; 85610; 86703; 86704; 86706; 86708; 87340; 87522; G0432

== ENCOUNTER 2021-01-12 23:29 | Emergency (ER) | payer BC, SELFPAY ==
[2021-01-12 23:31] VITALS: BP 141/97; PULSE 88; RESP 16; TEMP 36.8; O2SAT 100; BMI 26.4
--- NOTE | 2021-01-12 23:46 | HMH.EDDENT ---
ED Disposition Clinical Impression: Fracture of tooth Qualifiers: Encounter type: initial encounter Fracture type: closed Qualified Code(s): S02.5XXA - Fracture of tooth (traumatic), initial encounter for closed fracture Disposition: Home, Self-Care Condition on Discharge: Fair Instructions: DI for Dental Pain Additional Instructions: Please take Tylenol and ibuprofen as needed for pain relief. Please apply tooth balls as needed for comfort Please present to the urgent dental clinic on Thursday before 8 AM. May call in the morning with questions urgent dental care clinic is located at [address] [place] [address] Referrals: Chandana Ron MD [Primary Care Provider] - - Critical Care Critical Care Time: No Attestation: On , the high probability of a clinically significant, sudden or life threatening deterioration of the following system(s) required my full and direct attention, intervention and personal management. The time I documented below is in addition to time spent performing reported procedures but includes the following listed in this critical care notation. Medical Decision Making - Medical Records Medical records reviewed: Yes: I reviewed the patient's medical records. - Chato Inquiry Pt receiving controlled substance: No Vital Signs: 01/12/21 23:31 Temperature 98.2 F Temperature Source Oral Pulse Rate [Left Radial] 88 Respiratory Rate 16 Blood Pressure [Right Arm] 141/97 H Blood Pressure Mean [Right Arm] 111 Blood Pressure Source [Right Arm] Automatic Cuff Blood Pressure Position [Right Arm] Sitting 02 Sat by Pulse Oximetry 100 Oxygen Delivery Method Room Air Medical Decision Narrative: Tatian, patient is hemodynamically stable and nontoxic, but uncomfortable appearing. Patient presents with tooth pain. Patient states that she has had significant pain that is made her nauseated and this caused her to vomit. Patient states that she has taken Tylenol and ibuprofen all day as well as some Zofran which has not improved her symptoms. Patient states that she called to emergent dentists in the area who are unable to take her insurance. Additionally, patient states that she spoke to her dentist who stated they could not make an appointment until January 23. Patient was in significant pain. Dental ball was applied to the 30th tooth. Upon reassessment, patient states that she feels better. I discussed with the patient that has an urgent dental clinic which will be open on Thursday. Patient states that she will present there for further management. She was discharged stable condition. Patient is agreeable to plan. Dental HPI - General Chief complaint: Dental/Oral Stated complaint: broke tooth at work,dizziness,nausea Time Seen by Provider: 01/12/21 23:35 Mode of Arrival: Ambulatory Limitations: No Limitations Description of Symptoms (Recalled from ER Triage Doc. by RN): Pt reports breaking tooth lastnight at work. Pt c/o dental pain to right lower tooth causing N/V and trouble sleeping. No facial swelling. Patent airway. Denies fevers. - History of Present Illness HPI Narrative: 30-year-old female presenting with right mandibular first molar pain. Patient states that yesterday she felt her tooth crack and she was unable to get some sleep. Patient states that she had several episodes of nonbloody, nonbilious emesis secondary to pain that she was ultimately able to go to sleep. Patient presented to work today and stated that she had significant pain to her mandible. Patient states that she spoke to her dentist who is not able to get her an appointment for several days. Patient otherwise denies any fevers, chills, nausea, vomiting, chest pain, abdominal pain. She has not taken Tylenol or ibuprofen for her pain. - Related Data Home Medications Medication Instructions Recorded Confirmed Cholecalciferol (Vitamin D3) 1,000 unit PO DAILY 07/29/20 12/18/20 [Vitamin
[2021-01-13 00:06] VITALS: BP 113/74; PULSE 71; RESP 16; TEMP 36.6; O2SAT 98
== END 2021-01-13 00:11 | disposition home or self-care (01) ==
PROVIDERS: Emergency Provider Emergency Medicine; PCP Emergency Medicine
DX: S02.5XXA Fracture of tooth (traumatic), initial encounter for closed fracture (principal); F41.8 Other specified anxiety disorders; R01.1 Cardiac murmur, unspecified; G43.909 Migraine, unspecified, not intractable, without status migrainosus; F17.210 Nicotine dependence, cigarettes, uncomplicated; Z79.899 Other long term (current) drug therapy
CPT/HCPCS: 99281

== ENCOUNTER → 2021-01-21 13:19 | Outpatient (CLI) | payer BC, SELFPAY ==
--- NOTE | 2021-01-21 13:23 | XR_ITS ---
PROCEDURE: XR WRIST LT MIN 3V CLINICAL INDICATION: left wrist pain COMPARISON: No exams were available for comparison FINDINGS: No fracture or dislocation. No lytic or blastic change. There is normal mineralization. The joint spaces are well-preserved. No significant degenerative/arthritic changes. No erosive changes evident. Other findings:None. IMPRESSION: No acute findings. Dictated by: Bashir Jorgensen MD 01/21/2021 17:05 Bashir Jorgensen MD in [facility] 01/21/2021 17:05
== END ==
PROVIDERS: PCP Emergency Medicine; Visit Provider Emergency Medicine
DX: M25.532 Pain in left wrist (principal)
CPT/HCPCS: 73110

== ENCOUNTER → 2021-01-24 08:05 | Outpatient (CLI) | payer BC, SELFPAY ==
--- NOTE | 2021-01-24 08:09 | US_ITS ---
PROCEDURE: US LIVER CLINICAL INDICATION: r/o HCC Elevated liver enzymes COMPARISON: CT CT ABDOMEN PELVIS W CON from 12/13/2020 FINDINGS: PANCREAS: Unremarkable. No obvious mass or abnormal fluid collection. No ductal dilatation LIVER: No focal liver lesions demonstrated. Homogeneous echogenicity. No intrahepatic biliary ductal dilatation evident. There is appropriate direction of blood flow within a non dilated portal vein RIGHT KIDNEY: Unremarkable. Normal size and echogenicity. No hydronephrosis GALLBLADDER: Prior cholecystectomy. Common bile duct is normal at 3 mm. IMPRESSION: No focal hepatic lesion demonstrated Prior cholecystectomy Dictated by: Bashir Jorgensen MD 01/24/2021 16:35 Bashir Jorgensen MD in [facility] 01/24/2021 16:35
== END ==
PROVIDERS: PCP Emergency Medicine; Visit Provider Emergency Medicine
DX: B19.20 Unspecified viral hepatitis C without hepatic coma (principal)
CPT/HCPCS: 76705

== ENCOUNTER 2021-01-29 21:57 | Emergency (ER) | payer BC, SELFPAY ==
[2021-01-29 22:13] VITALS: BP 143/85; PULSE 103; RESP 18; TEMP 36.7; O2SAT 98; BMI 24.4
[2021-01-29 22:18] VITALS: BMI 24.4
--- NOTE | 2021-01-29 22:22 | CT_ITS ---
PROCEDURE INFORMATION: Exam: CT Abdomen And Pelvis With Contrast Exam date and time: 01/29/21 10:22 PM Age: 30 years old Clinical indication: Bloating and nausea and other: Belching foul smelling belches; Prior surgery; Surgery date: 6+ months; Surgery type: Gb; Patient HX: Ruq pain and foul smelling belches and gas; Additional info: Abd pain TECHNIQUE: Imaging protocol: Computed tomography of the abdomen and pelvis with contrast. Radiation optimization: All CT scans at this facility use at least one of these dose optimization techniques: automated exposure control; mA and/or kV adjustment per patient size (includes targeted exams where dose is matched to clinical indication); or iterative reconstruction. Contrast material: ISOVUE 370; Contrast volume: 75 ml; Contrast route: INTRAVENOUS (IV); COMPARISON: CT ABDOMEN PELVIS W CON 12/13/20 11:42 PM FINDINGS: Tubes, catheters and devices: None noted. Lungs: Lung bases appear clear. Heart: No significant coronary calcifications. No cardiomegaly. No significant pericardial effusion. Liver: Normal. No mass. Gallbladder and bile ducts: Cholecystectomy. No ductal dilation. Pancreas: Normal. No ductal dilation. Spleen: Normal. No splenomegaly. Adrenal glands: Normal. No mass. Kidneys and ureters: Normal. No hydronephrosis. Stomach and bowel: Stomach distended with debris. Consider gastroparesis and gastric outlet obstruction. No mucosal thickening. Appendix: No evidence of appendicitis. Intraperitoneal space: Unremarkable. No free air. No significant fluid collection. Retroperitoneal space: No significant retroperitoneal inflammatory changes are noted. Vasculature: Unremarkable. No abdominal aortic aneurysm. Lymph nodes: Unremarkable. No enlarged lymph nodes. Urinary bladder: Unremarkable as visualized. Reproductive: Myomatous uterus. Bones/joints: Unremarkable. No acute fracture. Soft tissues: Unremarkable. IMPRESSION: 1. Myomatous uterus. 2. Distended stomach with debris. Consider gastroparesis and gastric outlet obstruction.
[2021-01-29 22:23] LABS: Microscopic, Urine URINE MICROSCOPIC (MICROSCOPIC)
[2021-01-29 22:25] LABS: Basophils % 0.4 % (0.1-2.0); Eosinophils # 0.1 K/mm3 (0.0-0.4); Eosinophils % 0.8 % (0.1-12.0); Hematocrit 45.5 % (37.0-47.0); Hemoglobin 15.4 g/dL (12.2-16.2); Lymphocytes # 1.8 K/mm3 (0.7-4.5); Lymphocytes % 19.2 % (10-50); Mean Corpuscular HGB Conc 33.8 g/dL (31.8-35.4); Mean Corpuscular Hemoglobin 32.2 pg (27.0-31.2); Mean Corpuscular Volume 95.2 fl (81-99); Mean Platelet Volume 8.6 fl (7.4-10.4); Monocytes # 0.3 K/mm3 (0.1-1.0); Monocytes % 3.2 % (1.7-9.3); Neutrophils # 7.3 K/mm3 (1.8-7.8); Neutrophils % 76.4 % (37.0-80.0); Platelet Count 239 K/mm3 (142-424); Red Blood Count 4.78 M/mm3 (4.20-5.40); Red Cell Distribution Width 13.3 % (11.5-17.5); White Blood Count 9.5 K/mm3 (4.8-10.8)
[2021-01-29 22:26] LABS: Appearance,Urine SL CLOUDY (Clear); Bilirubin,Urine Negative (Negative); Blood, Urine Negative (Negative); Color,Urine DK YELLOW (Yellow); Glucose,Urine (UA) Negative (Negative); Ketones,Urine Negative (Negative); Leukocyte Esterase,Urine TRACE (Negative); Nitrate,Urine Negative (Negative); PH,Urine 6.5 (5.0-8.5); Protein,Urine Negative (Negative); Urobilinogen,Urine 0.2 EU/dl (0.2)
[2021-01-29 22:30] VITALS: BP 147/96; PULSE 95; RESP 16; O2SAT 95
[2021-01-29 22:30] LABS: Amylase 69 U/L (30-110); Anion Gap 13.1 mEq/L (5-15); Blood Urea Nitrogen 19 mg/dl (7-17); Calcium 9.9 mg/dl (8.4-10.2); Carbon Dioxide 27 mmol/L (22.0-30.0); Chloride 101 mmol/L (98-107); Creatinine Clearance Estimated 73 mL/min (50-200); Estimated Glomerular Filt Rate 65 ml/min (>60); GFR (African American) 78 ML/MIN (>60); Glucose 114 mg/dl (74-100); Lipase 46 U/L (23-300); Potassium 4.1 mmoL/L (3.5-5.1); Sodium 137 mmol/L (136-145); Urine Pregnancy, HCG Qual. Negative (Negative)
[2021-01-29 22:31] LABS: Adenovirus,PCR Not Detected (NotDetected); Bordetella Pertussis Not Detected (NotDetected); Chlamydophila Pneumoniae, PCR Not Detected (NotDetected); Coronavirus 19, PCR Not Detected (NotDetected); Coronavirus 229E Not Detected (NotDetected); Coronavirus NL63 Not Detected (NotDetected); Coronavirus OC43 Not Detected (NotDetected); Coronovirus HKU1,PCR Not Detected (NotDetected); Human Metapneumovirus Not Detected (NotDetected); Influenza A, PCR Not Detected (NotDetected); Influenza AH1, 2009 Not Detected (NotDetected); Influenza AH1, PCR Not Detected (NotDetected); Influenza AH3,PCR Not Detected (NotDetected); Influenza B, PCR Not Detected (NotDetected); Mycoplasma Pneumoniae, PCR Not Detected (NotDetected); Parainfluenza 1, PCR Not Detected (NotDetected); Parainfluenza 2, PCR Not Detected (NotDetected); Parainfluenza 3, PCR Not Detected (NotDetected); Parainfluenza 4, PCR Not Detected (NotDetected); Respiratory Syncytial Virus Not Detected (NotDetected); Rhinovirus/Enterovirus Not Detected (NotDetected)
[2021-01-29 22:34] LABS: RBC,Urine Occasional #/hpf (0-3)
[2021-01-29 22:35] LABS: Bacteria,Urine 4+ /lpf
--- NOTE | 2021-01-29 22:40 | HMH.EDNVD ---
ED Disposition Clinical Impression: Gastric outlet obstruction Disposition: Home, Self-Care Condition on Discharge: Good Instructions: DI for Acute Abdominal Pain Additional Instructions: see pcp for cee mas Prescriptions: Metoclopramide HCl [Reglan 5mg Tablet] 5 mg PO TID 10 Days #30 tab Transmission Status: Pending to [facility] Referrals: Chandana Ron MD [Primary Care Provider] - - Critical Care Critical Care Time: No Attestation: On 01/29/21, the high probability of a clinically significant, sudden or life threatening deterioration of the following system(s) required my full and direct attention, intervention and personal management. The time I documented below is in addition to time spent performing reported procedures but includes the following listed in this critical care notation. Medical Decision Making - Medical Records Medical records reviewed: Yes: I reviewed the patient's medical records. - Chato Inquiry Pt receiving controlled substance: No Vital Signs: 01/29/21 22:13 Temperature 98.0 F Temperature Source Oral Pulse Rate [Right Brachial] 103 H Respiratory Rate 18 Blood Pressure [right arm] 143/85 H Blood Pressure Mean [right arm] 104 Blood Pressure Source [right arm] Automatic Cuff Blood Pressure Position [right arm] Sitting 02 Sat by Pulse Oximetry 98 Oxygen Delivery Method Room Air - Lab Data Lab results reviewed: Yes: I reviewed the patient's lab results. Lab Results 01/29/21 22:00: Urine Color Dk yellow, Urine Appearance Sl cloudy, Urine pH 6.5, Ur Specific [employer] 1.020, Urine Protein Negative, Urine Glucose (UA) Negative, Urine Ketones Negative, Urine Blood Negative, Urine Nitrate Negative, Urine Bilirubin Negative, Urine Urobilinogen 0.2, Ur Leukocyte Esterase Trace, Urine RBC Occasional, Urine WBC 10-20, Ur Squamous Epith Cells 5-10, Urine Bacteria 4+ 01/29/21 22:00: WBC 9.5, RBC 4.78, Hgb 15.4, Hct 45.5, MCV 95.2, MCH 32.2 H, MCHC 33.8, RDW 13.3, Plt Count 239, MPV 8.6, Neut % (Auto) 76.4, Lymph % (Auto) 19.2, [place] % (Auto) 3.2, Eos % (Auto) 0.8, Baso % (Auto) 0.4, Neut # (Auto) 7.3, Lymph # (Auto) 1.8, [place] # (Auto) 0.3, Eos # (Auto) 0.1, Baso # (Auto) 0.0 01/29/21 22:00: Urine HCG, Qual Negative 01/29/21 22:00: Sodium 137, Potassium 4.1, Chloride 101, Carbon Dioxide 27, Anion Gap 13.1, BUN 19 H, Creatinine 1.00, Estimated Creat Clear 73, Estimated GFR 65, Est GFR ( Amer) 78, Glucose 114 H, Calcium 9.9, Amylase 69, Lipase 46 01/29/21 22:26: Chlamy pneumoniae PCR Not detected, Adenovirus (PCR) Not detected, B. pertussis DNA (PCR) Not detected, Coronavirus OC43 (PCR) Not detected, Coronavirus HKU1 (PCR) Not detected, Coronavirus 229E (PCR) Not detected, SARS-CoV-2 (PCR) Not detected, Coronavirus NL63 (PCR) Not detected, Human Metapneumovir PCR Not detected, Influenza A (H1) PCR Not detected, Influ A (H1N1/09) PCR Not detected, Influenza A (H3) PCR Not detected, Influenza Type A (PCR) Not detected, Influenza Type B (PCR) Not detected, M. pneumoniae (PCR) Not detected, Parainfluenza 1 (PCR) Not detected, Parainfluenza 2 (PCR) Not detected, Parainfluenza 3 (PCR) Not detected, Parainfluenza 4 (PCR) Not detected, RSV (PCR) Not detected, Entero/Rhino (PCR) Not detected 01/30/21 00:00: Total Bilirubin 0.6, Direct Bilirubin 0.2, Conjugated Bilirubin 0.0, Indirect Bilirubin 0.4, Unconjugated Bilirubin 0.4, AST 122 H, ALT 186 H, Alkaline Phosphatase 161 H, Total Protein 8.1, Albumin 4.8 Result diagrams: 01/29/21 22:00 01/29/21 22:00 Orders (Tests/Meds): ED MEDICATIONS Generic Name Dose Route Start Last Admin Trade Name Freq PRN Reason Stop Dose Admin Sodium Chloride 1,000 mls @ 999 mls/hr 01/29/21 22:30 01/29/21 22:36 Sod Chlor 0.9% 1000ml Bag IV 01/29/21 23:30 999 mls/hr .Q1H1M SAMM Administration Sodium Chloride 8 ml 01/29/21 22:26 Sodium Chloride 0.9% 10ml Vial IV 02/28/21 22:25 NEEDED PRN dilute pepcid Discontinued M
[2021-01-30 00:45] LABS: Alanine Aminotransferase 186 U/L (12-78); Albumin Level 4.8 g/dl (3.5-5.0); Alkaline Phosphatase 161 U/L (38-126); Aspartate Amino Transferase 122 U/L (14-36); Bilirubin,Direct 0.2 mg/dl (0.0-0.4); Bilirubin,Indirect 0.4 mg/dL (0.0-0.9); Bilirubin,Total 0.6 mg/dl (0.2-1.3); Bilirubin,Unconjugated 0.4 mg/dL (0.0-1.1); Total Protein,Serum 8.1 g/dl (6.3-8.2)
[2021-01-30 01:17] VITALS: BP 143/85; PULSE 96; RESP 16; TEMP 36.7; O2SAT 98
== END 2021-01-30 01:23 | disposition home or self-care (01) ==
PROVIDERS: Emergency Provider Emergency Medicine; PCP Emergency Medicine
DX: K31.1 Adult hypertrophic pyloric stenosis (principal); F41.8 Other specified anxiety disorders; R01.1 Cardiac murmur, unspecified; Z79.899 Other long term (current) drug therapy; R21 Rash and other nonspecific skin eruption; F17.210 Nicotine dependence, cigarettes, uncomplicated; Z88.2 Allergy status to sulfonamides; Z88.8 Allergy status to other drugs, medicaments and biological substances
CPT/HCPCS: 74177; 80048; 80076; 81001; 81025; 82150; 83690; 85025; 87086; 87088; 87186; 87581; 87633; 87798; 96365; 96375; 99283; Q9967

== ENCOUNTER → 2021-02-04 12:39 | Outpatient (CLI) | payer BC, SELFPAY ==
[2021-02-04 14:29] LABS: Alanine Aminotransferase 80 U/L (12-78); Albumin Level 4.8 g/dl (3.5-5.0); Alkaline Phosphatase 132 U/L (38-126); Aspartate Amino Transferase 51 U/L (14-36); Bilirubin,Direct 0.1 mg/dl (0.0-0.4); Bilirubin,Indirect 0.5 mg/dL (0.0-0.9); Bilirubin,Total 0.6 mg/dl (0.2-1.3); Bilirubin,Unconjugated 0.5 mg/dL (0.0-1.1)
[2021-02-07 12:48] LABS: HIV Screen 4th Generation wRfx Non Reactive (Non Reactive); Hep A Ab, Total Positive (Negative); Hepatitis B Surf Ab Quant 55.2 mIU/mL (Immunity>9.9)
[2021-02-07 22:11] LABS: Hepatitis C Genotype 1a (.)
== END ==
PROVIDERS: Visit Provider Nurse Practitioner Acute Care
DX: Z00.00 Encounter for general adult medical examination without abnormal findings (principal); B19.20 Unspecified viral hepatitis C without hepatic coma; R74.8 Abnormal levels of other serum enzymes
CPT/HCPCS: 36415; 80076; 86703; 86706; 86708; 87522; 87902; G0432

== ENCOUNTER → 2021-02-27 14:12 | Outpatient (CLI) | payer BC, SELFPAY ==
[2021-02-27 15:10] LABS: Barbiturates Screen,Urine Negative ng/ml (<200)
[2021-02-27 15:15] LABS: Cannabinoid Screen,Urine Negative ng/ml (<50); Methadone Screen,Urine Negative ng/ml (<300)
[2021-02-27 15:17] LABS: Phencyclidine Screen,Urine Negative ng/ml (<25)
[2021-02-27 15:30] LABS: Amphetamine/Metha Screen,Urine Positive ng/ml (<1000)
[2021-02-27 15:31] LABS: Benzodiazepines Screen,Urine Negative ng/ml (<200)
[2021-02-27 15:32] LABS: Opiate Screen,Urine Negative ng/ml (<300)
[2021-02-27 15:35] LABS: Cocaine Screen,Urine Negative ng/ml (<300)
== END ==
PROVIDERS: Visit Provider Emergency Medicine
DX: Z79.899 Other long term (current) drug therapy (principal)
CPT/HCPCS: 80305

== ENCOUNTER → 2021-10-23 04:11 | Outpatient (CLI) | payer BC, SELFPAY | PROVIDERS: PCP Emergency Medicine; Visit Provider Emergency Medicine | DX: U07.1 COVID-19 (principal) | CPT/HCPCS: C9803; U0003; U0005 ==

== ENCOUNTER 2021-11-26 07:54 | Emergency (ER) | payer BC, SELFPAY ==
[2021-11-26 08:03] VITALS: BP 119/78; PULSE 100; RESP 18; TEMP 36.7; O2SAT 97; BMI 30.2
--- NOTE | 2021-11-26 08:47 | HMH.EDABDPAI ---
ED Disposition Clinical Impression: Elevated LFTs Gastritis Qualifiers: Gastritis type: unspecified gastritis Chronicity: acute Gastritis bleeding: with bleeding Qualified Code(s): K29.01 - Acute gastritis with bleeding Disposition: Home, Self-Care Condition on Discharge: Good Instructions: DI for Acute Abdominal Pain Prescriptions: Famotidine [Pepcid 20mg Tablet] 20 mg PO DAILY #15 tab Transmission Status: Pending to [facility] Ondansetron [Zofran 4mg ODT] 4 mg PO BIDP PRN #10 tab PRN Reason: Nausea Transmission Status: Pending to [facility] Referrals: Chandana Ron MD [Primary Care Provider] - Ti Matos MD [Staff Physician] - - Critical Care Critical Care Time: No Attestation: On 11/26/21, the high probability of a clinically significant, sudden or life threatening deterioration of the following system(s) required my full and direct attention, intervention and personal management. The time I documented below is in addition to time spent performing reported procedures but includes the following listed in this critical care notation. Medical Decision Making - Medical Records Medical records reviewed: Yes: I reviewed the patient's medical records. - Chato Inquiry Pt receiving controlled substance: No Vital Signs: 11/26/21 08:03 11/26/21 09:57 Temperature 98.1 F Temperature Source Oral Pulse Rate 85 Pulse Rate [Left Radial] 100 H Respiratory Rate 18 Blood Pressure 129/80 Blood Pressure [Right Arm] 119/78 Blood Pressure Mean [Right Arm] 91 02 Sat by Pulse Oximetry 97 96 Oxygen Delivery Method Room Air Room Air - Lab Data Lab Results 11/26/21 08:30: WBC 7.2, RBC 4.62, Hgb 15.0, Hct 45.5, MCV 98.5, MCH 32.4 H, MCHC 32.9, RDW 13.7, Plt Count 221, MPV 9.7, Neut % (Auto) 59.1, Lymph % (Auto) 30.3, [place] % (Auto) 7.2, Eos % (Auto) 2.2, Baso % (Auto) 1.2, Neut # (Auto) 4.3, Lymph # (Auto) 2.2, [place] # (Auto) 0.5, Eos # (Auto) 0.2, Baso # (Auto) 0.1 11/26/21 08:30: Sodium 131 L, Potassium 3.6, Chloride 92 L, Carbon Dioxide 32 H, Anion Gap 10.6, BUN 11, Creatinine 0.60, Estimated Creat Clear 154, Estimated GFR 116, Est GFR ( Amer) 140, Glucose 106 H, Calcium 8.7, Total Bilirubin 1.8 H, AST 367 H*, ALT 267 H, Alkaline Phosphatase 243 H, Total Protein 7.6, Albumin 4.3, Globulin 3.3 H, Albumin/Globulin Ratio 1.3 11/26/21 08:30: Lipase 47 11/26/21 09:07: Urine Color [place], Urine Appearance Sl cloudy, Urine pH 7.0, Ur Specific [place] 1.015, Urine Protein Trace, Urine Glucose (UA) Negative, Urine Ketones Trace, Urine Blood Negative, Urine Nitrate Negative, Urine Bilirubin 2+ A, Urine Urobilinogen 4.0, Ur Leukocyte Esterase Trace, Urine WBC 3-5, Ur Squamous Epith Cells 20-50, Urine Bacteria 3+ 11/26/21 09:07: Urine HCG, Qual Negative Result diagrams: 11/26/21 08:30 11/26/21 08:30 Orders (Tests/Meds): ED MEDICATIONS Generic Name Dose Route Start Last Admin Trade Name Freq PRN Reason Stop Dose Admin Sodium Chloride 10 ml 11/26/21 08:13 Sodium Chloride 0.9% 10ml Flush Syringe IV 12/26/21 08:12 NEEDED PRN Maintain IV Site Sodium Chloride 8 ml 11/26/21 08:25 Sodium Chloride 0.9% 10ml Vial IV 12/26/21 08:24 NEEDED PRN dilute pepcid Discontinued Medications Generic Name Dose Route Start Last Admin Trade Name Freq PRN Reason Stop Dose Admin Famotidine 20 mg 11/26/21 08:25 11/26/21 08:44 Famotidine 20mg/2ml Vial IV 11/26/21 08:26 20 mg ONCE ONE Administration Sodium Chloride 1,000 mls @ 999 mls/hr 11/26/21 08:15 11/26/21 08:22 Sod Chlor 0.9% 1000ml Bag IV 11/26/21 09:15 999 mls/hr .Q1H1M SAMM Administration Sodium Chloride 1,000 mls @ 999 mls/hr 11/26/21 08:30 Sod Chlor 0.9% 1000ml Bag IV 11/26/21 09:30 .Q1H1M SAMM Iopamidol 55 ml 11/26/21 09:45 11/26/21 09:49 Iopamidol-370 (76%);100ml Bottle IV 11/26/21 09:46 55 ml ONCE ONE Administration Ondansetro
[2021-11-26 08:55] LABS: Basophils # 0.1 K/mm3 (0-0.2); Basophils % 1.2 % (0.1-2.0); Chloride 92 mmol/L (98-107); Eosinophils # 0.2 K/mm3 (0.0-0.4); Eosinophils % 2.2 % (0.1-12.0); Hematocrit 45.5 % (37.0-47.0); Lymphocytes # 2.2 K/mm3 (0.7-4.5); Lymphocytes % 30.3 % (10-50); Mean Corpuscular HGB Conc 32.9 g/dL (31.8-35.4); Mean Corpuscular Hemoglobin 32.4 pg (27.0-31.2); Mean Corpuscular Volume 98.5 fl (81-99); Mean Platelet Volume 9.7 fl (7.4-10.4); Monocytes # 0.5 K/mm3 (0.1-1.0); Monocytes % 7.2 % (1.7-9.3); Neutrophils # 4.3 K/mm3 (1.8-7.8); Neutrophils % 59.1 % (37.0-80.0); Platelet Count 221 K/mm3 (142-424); Red Blood Count 4.62 M/mm3 (4.20-5.40); Red Cell Distribution Width 13.7 % (11.5-17.5); White Blood Count 7.2 K/mm3 (4.8-10.8)
[2021-11-26 08:56] LABS: Potassium 3.6 mmoL/L (3.5-5.1); Sodium 131 mmol/L (136-145)
[2021-11-26 08:58] LABS: Alanine Aminotransferase 267 U/L (12-78); Alkaline Phosphatase 243 U/L (38-126); Aspartate Amino Transferase 367 U/L (14-36); Bilirubin,Total 1.8 mg/dl (0.2-1.3); Blood Urea Nitrogen 11 mg/dl (7-17); Creatinine Clearance Estimated 154 mL/min (50-200); Estimated Glomerular Filt Rate 116 ml/min (>60); GFR (African American) 140 ML/MIN (>60)
[2021-11-26 08:59] LABS: Albumin Level 4.3 g/dl (3.5-5.0); Albumin/Globulin Ratio 1.3 (1.1-1.8); Anion Gap 10.6 mEq/L (5-15); Calcium 8.7 mg/dl (8.4-10.2); Carbon Dioxide 32 mmol/L (22.0-30.0); Globulin 3.3 g/dL (1.3-3.2); Glucose 106 mg/dl (74-100); Lipase 47 U/L (23-300); Total Protein,Serum 7.6 g/dl (6.3-8.2)
--- NOTE | 2021-11-26 09:02 | PC.NURSE ---
Ambulatory to restroom
[2021-11-26 09:12] LABS: Microscopic, Urine URINE MICROSCOPIC (MICROSCOPIC)
[2021-11-26 09:17] LABS: Appearance,Urine SL CLOUDY (Clear); Blood, Urine Negative (Negative); Color,Urine AMBER (Yellow); Glucose,Urine (UA) Negative (Negative); Ketones,Urine TRACE (Negative); Leukocyte Esterase,Urine TRACE (Negative); Nitrate,Urine Negative (Negative); Protein,Urine TRACE (Negative); Specific Gravity, Urine 1.015 (1.005-1.030)
[2021-11-26 09:18] LABS: Urine Pregnancy, HCG Qual. Negative (Negative)
--- NOTE | 2021-11-26 09:22 | CT_ITS ---
FINAL REPORT TECHNIQUE: After the administration of oral and intravenous contrast, axial images were obtained through the abdomen and pelvis by computed tomography. The study was performed with techniques to keep radiation dose as low as reasonably achievable, (ALARA). Individual dose reduction techniques using automated exposure control or adjustment of mA and/or kV according to the patient's size were employed. CLINICAL HISTORY: abdominal pain in umbilical area COMPARISON: January 29, 2021 FINDINGS: Abdomen: The lung bases are clear. The liver parenchyma is mildly fatty infiltrated. The gallbladder is absent. There are calcified granulomas in the spleen. The pancreas and left adrenal gland appear unremarkable. There is a 2.5 x 1.3 cm right adrenal mass that is slightly larger than the prior exam but favors an adenoma. There is a small benign-appearing cyst arising from the posterior right kidney. The aorta is normal in caliber. There is no free fluid or adenopathy. Pelvis: The appendix is not identified. The urinary bladder is unremarkable. There is a 2.3 cm cyst or follicle in the right ovary. There is a probable fibroid in the anterior myometrium measuring 3.3 cm. IMPRESSION: Fibroid uterus. Presumed right adrenal adenoma. Reviewed, Interpreted and Dictated by Colin Schulz MD Transcribed by Grady Lopez Authenticated by Colin Schulz MD on 11/26/2021 11:15:55 AM [facility]
[2021-11-26 09:28] LABS: Bilirubin,Urine 2+ (Negative)
[2021-11-26 09:37] LABS: Squamous Epithelial Cell,Urine 20-50 #/hpf (0-5)
[2021-11-26 09:39] LABS: Bacteria,Urine 3+ /lpf
[2021-11-26 09:57] VITALS: BP 129/80; PULSE 85; O2SAT 96
[2021-11-26 11:53] VITALS: BP 117/74; PULSE 81; RESP 17; TEMP 36.7; O2SAT 99
[2021-11-27 12:15] LABS: Hep A Ab, IgM Negative (Negative); Hepatitis B Core Antibody IgM Negative (Negative); Hepatitis B Surface Antigen Negative (Negative); Hepatitis C Antibody >11.0 s/co ratio (0.0-0.9)
== END 2021-11-26 11:54 | disposition home or self-care (01) ==
PROVIDERS: Emergency Medicine; Emergency Provider Emergency Medicine; PCP Emergency Medicine
DX: K29.01 Acute gastritis with bleeding (principal); K21.9 Gastro-esophageal reflux disease without esophagitis; F41.8 Other specified anxiety disorders; R01.1 Cardiac murmur, unspecified; F17.210 Nicotine dependence, cigarettes, uncomplicated
CPT/HCPCS: 74177; 80053; 80074; 81001; 81025; 83690; 85025; 87086; 96365; 96375; 99283; 99284; J2405; Q9967

== ENCOUNTER 2022-05-23 08:02 | Emergency (ER) | payer BC, SELFPAY ==
[2022-05-23 08:27] VITALS: BP 131/64; PULSE 87; RESP 19; TEMP 36.8; O2SAT 98; BMI 32.5
--- NOTE | 2022-05-23 08:40 | HMH.EDUTC ---
[facility] Disposition Clinical Impression: Strep throat Disposition: Home, Self-Care Condition on Discharge: Good Instructions: Strep Throat, DI for Strep Throat Additional Instructions: Drink plenty of fluids. Take tylenol or ibuprofen for pain or fever. Take the medications as directed. Follow up with your regular doctor. GO TO THE ER FOR ANY WORSENING SYMPTOMS Throw your tooth brush away and get a new one. Prescriptions: Amoxicillin/Potassium Clav [Amox-Clav 875-125 mg Tablet] 1 tab PO BID #20 tab Transmission Status: Received by [id number] Benzonatate [Benzonatate 100mg cap] 100 mg PO TIDP PRN #30 cap PRN Reason: Cough Transmission Status: Received by [id number] methylPREDNISolone [Medrol] 4 mg PO DIRECTED 6 Days #21 packet Transmission Status: Received by [id number] Referrals: Chandana Ron MD [Primary Care Provider] - Forms: Work/School Release Time of Disposition: 08:57 Medical Decision Making - Medical Records Medical records reviewed: No: I reviewed the patient's medical records. - Chato Inquiry Pt receiving controlled substance: No Vital Signs: 05/23/22 08:27 Temperature 98.3 F Temperature Source Oral Pulse Rate [Left Radial] 87 Respiratory Rate 19 Blood Pressure [Right Arm] 131/64 Blood Pressure Mean [Right Arm] 86 02 Sat by Pulse Oximetry 98 Oxygen Delivery Method Room Air - Lab Data Lab results reviewed: Yes: I reviewed the patient's lab results. Lab Results 05/23/22 08:27: Strep Scn [facility] Positive A Medical Decision Narrative: She refused a covid-19 test today. [facility] HPI - General Stated complaint: sore throat, cough, fever, body aches Time Seen by Provider: 05/23/22 08:40 Mode of Arrival: Ambulatory Source of Information: Patient Limitations: No Limitations Description of Symptoms (Recalled from Triage Doc. by RN): pt to [facility] c/o sore throat, fever, body aches and a headache. pt reports she has has these symptoms x3 days. pt denies n/v/d or soa. HEENT Symptoms (Recalled from RN notes): Yes Resp Symptoms (Recalled from RN notes): Yes Skin Symptoms (Recalled from RN notes): No MS Symptoms (Recalled from RN notes): No Functional Status (Recalled from RN notes): na - History of Present Illness Provider Complaint: She c/o sore throat and feeling bad for the past 2 days. - Related Data Home Medications Medication Instructions Recorded Confirmed Cholecalciferol (Vitamin D3) 1,000 unit PO DAILY 07/29/20 11/25/21 [Vitamin D3 1,000 Unit Cap] Lidocaine [Lidocaine 5% patch] 1 patch TOPICAL DAILY 01/29/21 11/25/21 Mupirocin [Centany] 1 applic TOPICAL BID 01/29/21 11/25/21 Omeprazole See Rx Instructions .ROUTE .COMPLEX 01/29/21 11/25/21 ergocalciferol (vitamin D2) 1,250 1,250 mcg PO WEEKLY 06/12/21 11/25/21 mcg (50,000 unit) capsule Previous Rx's Medication Instructions Recorded tizanidine 4 mg capsule 4 mg PO TID PRN 30 Days #90 cap 12/21/20 dextroamphetamine-amphetamine 20 20 mg PO BID #60 tab 11/25/21 mg tablet minocycline 100 mg capsule 100 mg PO .COMPLEX #50 cap 11/25/21 oxycodone-acetaminophen 7.5 mg-325 1 tab PO Q8H #30 tab 11/25/21 mg tablet Famotidine [Pepcid 20mg Tablet] 20 mg PO DAILY #15 tab 11/26/21 Ondansetron [Zofran 4mg ODT] 4 mg PO BIDP PRN #10 tab 11/26/21 Amoxicillin/Potassium Clav 1 tab PO BID #20 tab 05/23/22 [Amox-Clav 875-125 mg Tablet] Benzonatate [Benzonatate 100mg 100 mg PO TIDP PRN #30 cap 05/23/22 cap] methylPREDNISolone [Medrol] 4 mg PO DIRECTED 6 Days #21 05/23/22 packet Allergies Allergy/AdvReac Type Severity Reaction Status Date / Time bacitracin Allergy Mild Hives Verified 11/25/21 12:10 [From Neosporin ([id number])] neomycin Allergy Mild Hives Verified 11/25/21 12:10 [From Neosporin ([id number])] polymyxin B Allergy Mild Hives Verified 11/25/21 12:10 [From Neosporin ([id number])]
[2022-05-23 08:45] LABS: UTC Strep Screen (Rapid) Positive (Negative)
[2022-05-23 09:08] VITALS: BP 130/69; PULSE 86; RESP 19; TEMP 36.8; O2SAT 98
== END 2022-05-23 09:09 | disposition home or self-care (01) ==
PROVIDERS: Emergency Provider Nurse Practitioner Family; PCP Emergency Medicine
DX: J02.0 Streptococcal pharyngitis (principal)
CPT/HCPCS: 87880; 99212; G0463

== ENCOUNTER 2022-08-12 02:42 | Emergency (ER) | payer OTHER, BC, SELFPAY ==
[2022-08-12 02:44] VITALS: BP 159/81; PULSE 78; RESP 18; TEMP 36.6; O2SAT 97; BMI 32.0
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
[2022-08-12 03:09] LABS: Microscopic, Urine URINE MICROSCOPIC (MICROSCOPIC)
[2022-08-12 03:11] LABS: Appearance,Urine CLEAR (Clear); Bilirubin,Urine Negative (Negative); Blood, Urine Negative (Negative); Color,Urine YELLOW (Yellow); Glucose,Urine (UA) Negative (Negative); Ketones,Urine Negative (Negative); Leukocyte Esterase,Urine Negative (Negative); Nitrate,Urine Negative (Negative); Protein,Urine Negative (Negative); Urobilinogen,Urine 0.2 EU/dl (0.2)
[2022-08-12 03:13] LABS: Urine Pregnancy, HCG Qual. Negative (Negative)
[2022-08-12 03:15] LABS: Basophils # 0.2 K/mm3 (0-0.2); Basophils % 1.5 % (0.1-2.0); Eosinophils # 0.2 K/mm3 (0.0-0.4); Eosinophils % 1.7 % (0.1-12.0); Hematocrit 49.7 % (37.0-47.0); Hemoglobin 16.1 g/dL (12.2-16.2); Lymphocytes # 3.8 K/mm3 (0.7-4.5); Lymphocytes % 38.3 % (10-50); Mean Corpuscular HGB Conc 32.5 g/dL (31.8-35.4); Mean Corpuscular Hemoglobin 31.4 pg (27.0-31.2); Mean Corpuscular Volume 96.7 fl (81-99); Mean Platelet Volume 9.3 fl (7.4-10.4); Monocytes # 0.5 K/mm3 (0.1-1.0); Neutrophils # 5.4 K/mm3 (1.8-7.8); Neutrophils % 53.5 % (37.0-80.0); Platelet Count 245 K/mm3 (142-424); Red Blood Count 5.14 M/mm3 (4.20-5.40); Red Cell Distribution Width 13.8 % (11.5-17.5)
[2022-08-12 03:23] LABS: Alanine Aminotransferase 75 U/L (12-78); Albumin Level 4.6 g/dl (3.5-5.0); Albumin/Globulin Ratio 1.4 (1.1-1.8); Alkaline Phosphatase 133 U/L (38-126); Aspartate Amino Transferase 54 U/L (14-36); Bilirubin,Total 0.3 mg/dl (0.2-1.3); Blood Urea Nitrogen 12 mg/dl (7-17); Calcium 9.7 mg/dl (8.4-10.2); Carbon Dioxide 27 mmol/L (22.0-30.0); Chloride 101 mmol/L (98-107); Creatinine Clearance Estimated 157 mL/min (50-200); Estimated Glomerular Filt Rate 115 ml/min (>60); GFR (African American) 139 ML/MIN (>60); Globulin 3.3 g/dL (1.3-3.2); Glucose 88 mg/dl (74-100); Sodium 139 mmol/L (136-145); Total Protein,Serum 7.9 g/dl (6.3-8.2)
[2022-08-12 03:27] LABS: Bacteria,Urine 1+ /lpf
--- NOTE | 2022-08-12 04:20 | PC.NURSE ---
verbal order for 4mg morphine
[2022-08-12 04:29] VITALS: BP 133/89; PULSE 78; RESP 18; TEMP 36.6; O2SAT 99
== END 2022-08-12 04:34 | disposition home or self-care (01) ==
PROVIDERS: Emergency Provider Emergency Medicine; PCP Emergency Medicine
DX: R10.31 Right lower quadrant pain (principal); R10.32 Left lower quadrant pain; M54.9 Dorsalgia, unspecified; R11.0 Nausea; F17.290 Nicotine dependence, other tobacco product, uncomplicated; Z88.2 Allergy status to sulfonamides; Z88.8 Allergy status to other drugs, medicaments and biological substances; V83.5XXA Driver of special industrial vehicle injured in nontraffic accident, initial encounter
CPT/HCPCS: 74177; 80053; 81001; 81025; 85025; 96374; 96375; 99285; J2405; Q9967

== ENCOUNTER 2022-09-08 13:36 | Emergency (ER) | payer BC, SELFPAY ==
[2022-09-08 14:14] VITALS: BP 0/0; PULSE 0; RESP 0; TEMP -17.7; TEMP 0
== END 2022-09-08 14:15 | disposition left against medical advice (07) ==
LOC: UTC 13:38
PROVIDERS: Emergency Provider Nurse Practitioner; PCP Emergency Medicine
DX: Z53.21 Procedure and treatment not carried out due to patient leaving prior to being seen by health care provider (principal)

== ENCOUNTER → 2022-09-19 14:15 | Outpatient (CLI) | payer BC, SELFPAY ==
[2022-09-19 19:39] LABS: Amphetamine/Metha Screen,Urine Negative ng/ml (<1000)
[2022-09-19 19:40] LABS: Barbiturates Screen,Urine Negative ng/ml (<200)
[2022-09-19 19:41] LABS: Benzodiazepines Screen,Urine Negative ng/ml (<200)
[2022-09-19 19:42] LABS: Cannabinoid Screen,Urine Negative ng/ml (<50); Cocaine Screen,Urine Negative ng/ml (<300)
[2022-09-19 19:43] LABS: Methadone Screen,Urine Negative ng/ml (<300)
[2022-09-19 19:44] LABS: Opiate Screen,Urine Positive ng/ml (<300); Phencyclidine Screen,Urine Negative ng/ml (<25)
== END ==
PROVIDERS: PCP Emergency Medicine; Visit Provider Emergency Medicine
DX: Z79.899 Other long term (current) drug therapy (principal)
CPT/HCPCS: 80305

== ENCOUNTER → 2022-11-05 10:13 | Outpatient (CLI) | payer BC, SELFPAY ==
--- NOTE | 2022-11-05 10:13 | US_ITS ---
FINAL REPORT CLINICAL HISTORY: Pelvic Pain and hx of Fibroids COMPARISON: 12/07/2020 FINDINGS: Transvaginal sonographic images of the pelvis were obtained. The uterus measures 7.9 x 6.1 x 5.0 cm. The endometrium measures 1.7 cm, which is probably physiologic in a reproductive age patient. A dominant fibroid in the uterus measures 3.5 cm and is slightly larger than previous. The right ovary measures 3.7 cm in length and left ovary measures 3.7 cm in length. Normal blood flow seen to the ovaries. Multiple cysts or follicles are seen in both ovaries. There is no evidence of free fluid. IMPRESSION: Dominant fibroid in the uterus is slightly larger than previous. Multiple cysts or follicles in both ovaries. Reviewed, Interpreted and Dictated by Colin Schulz MD Transcribed by Jeny Valdes Authenticated and [facility]
== END ==
PROVIDERS: PCP Emergency Medicine; Visit Provider Obstetrics & Gynecology
DX: R10.2 Pelvic and perineal pain (principal); Z86.018 Personal history of other benign neoplasm
CPT/HCPCS: 76830

== ENCOUNTER → 2023-02-25 11:45 | Outpatient (CLI) | payer BC, SELFPAY ==
[2023-02-25 19:46] LABS: Amphetamine/Metha Screen,Urine Positive ng/ml (<1000)
[2023-02-25 19:47] LABS: Barbiturates Screen,Urine Negative ng/ml (<200); Benzodiazepines Screen,Urine Negative ng/ml (<200)
[2023-02-25 19:48] LABS: Cannabinoid Screen,Urine Negative ng/ml (<50)
[2023-02-25 19:49] LABS: Cocaine Screen,Urine Negative ng/ml (<300); Methadone Screen,Urine Negative ng/ml (<300)
[2023-02-25 19:50] LABS: Opiate Screen,Urine Negative ng/ml (<300)
[2023-02-25 19:52] LABS: Phencyclidine Screen,Urine Negative ng/ml (<25)
== END ==
PROVIDERS: PCP Emergency Medicine; Visit Provider Emergency Medicine
DX: Z79.899 Other long term (current) drug therapy (principal)
CPT/HCPCS: 80305

== ENCOUNTER 2023-10-14 11:43 | Outpatient (CLI) | payer BC, SELFPAY ==
[2023-10-14 13:55] LABS: Cannabinoid Screen,Urine Negative ng/ml (<50)
[2023-10-14 15:47] LABS: Amphetamine/Metha Screen,Urine Positive ng/ml (<1000); Barbiturates Screen,Urine Negative ng/ml (<200); Benzodiazepines Screen,Urine Negative ng/ml (<200); Cocaine Screen,Urine Negative ng/ml (<300); Methadone Screen,Urine Negative ng/ml (<300); Opiate Screen,Urine Negative ng/ml (<300); Phencyclidine Screen,Urine Negative ng/ml (<25)
[2023-10-14 18:18] LABS: Basophils # 0.1 K/mm3 (0-0.2); Eosinophils # 0.2 K/mm3 (0.0-0.4); Eosinophils % 2.3 % (0.1-12.0); Hematocrit 47.2 % (37.0-47.0); Hemoglobin 15.8 g/dL (12.2-16.2); Lymphocytes # 2.4 K/mm3 (0.7-4.5); Lymphocytes % 34.3 % (10-50); Mean Corpuscular HGB Conc 33.4 g/dL (31.8-35.4); Mean Corpuscular Hemoglobin 33.6 pg (27.0-31.2); Mean Corpuscular Volume 100.7 fl (81-99); Mean Platelet Volume 10.8 fl (7.4-10.4); Monocytes # 0.5 K/mm3 (0.1-1.0); Monocytes % 7.4 % (1.7-9.3); Neutrophils # 3.9 K/mm3 (1.8-7.8); Neutrophils % 54.9 % (37.0-80.0); Platelet Count 207 K/mm3 (142-424); Red Blood Count 4.69 M/mm3 (4.20-5.40); Red Cell Distribution Width 13.9 % (11.5-17.5); White Blood Count 7.1 K/mm3 (4.8-10.8)
[2023-10-14 18:36] LABS: Alanine Aminotransferase 102 U/L (12-78); Albumin Level 4.1 g/dl (3.5-5.0); Albumin/Globulin Ratio 1.4 (1.1-1.8); Alkaline Phosphatase 100 U/L (38-126); Anion Gap 11.3 mEq/L (5-15); Aspartate Amino Transferase 63 U/L (14-36); Bilirubin,Total 0.6 mg/dl (0.2-1.3); Blood Urea Nitrogen 11 mg/dl (7-17); Calcium 9.2 mg/dl (8.4-10.2); Carbon Dioxide 23 mmol/L (22.0-30.0); Chloride 108 mmol/L (98-107); Chol/HDL Ratio 4.6 (1-3.5); Cholesterol 194 mg/dl (140-200); Estimated Glomerular Filt Rate 114 ml/min (>60); GFR (African American) 138 ML/MIN (>60); Globulin 2.9 g/dL (1.3-3.2); Glucose 106 mg/dl (74-100); HDL Cholesterol 42 mg/dl (40-60); Potassium 4.3 mmoL/L (3.5-5.1); Sodium 138 mmol/L (136-145); Triglycerides 218 mg/dl (30-150); VLDL Cholesterol 44 mg/dL (0-40)
[2023-10-14 18:52] LABS: Hemoglobin A1C 4.9 % (4.0-6.0)
[2023-10-14 19:10] LABS: Thyroid Stimulating Hormone 0.85 uIU/mL (0.465-4.68)
[2023-10-16 13:35] LABS: HIV Screen 4th Generation wRfx Non Reactive (Non Reactive)
[2023-10-19 14:10] LABS: HBsAg Screen Negative (Negative); HCV Ab Reactive (Non Reactive); Hep A Ab, IGM Negative (Negative); Hep B Core Ab, IgM Negative (Negative)
== END 2023-10-14 23:59 ==
LOC: LAB.DROPOF 11:43
PROVIDERS: PCP Internal Medicine; Visit Provider Internal Medicine
DX: Z79.899 Other long term (current) drug therapy (principal); M25.552 Pain in left hip; R73.09 Other abnormal glucose
CPT/HCPCS: 80053; 80061; 80074; 80307; 82043; 83036; 84443; 85025; 86703; G0432

== ENCOUNTER 2023-11-06 09:14 | Outpatient (CLI) | payer BC, SELFPAY ==
--- NOTE | 2023-11-06 09:15 | XR_ITS ---
FINAL REPORT TECHNIQUE: Bone densitometry calculations of the lumbar spine and left hip were obtained. CLINICAL HISTORY: vitamin d deficiency COMPARISON: None FINDINGS: Using L1-4, the bone mineral density of the spine is 0.89 g/cm2, corresponding to T-score of -1.4 and a Z score of 1.4. This is within the range of osteopenia. Using the left hip, the bone mineral density of the femoral neck is 0.67 g/cm2, corresponding to a T-score of -1.6 and a Z-score of -1.5. This is within the range of osteopenia. NOTE: T-score: Standard deviation compared with peak bone mass of young adult mean. *Following the recommendations of the International Society of Bone densitometry, classification of hip BMD is based on the lower of two T-scores; total hip or femoral neck. IMPRESSION: Bone mineral density of the lumbar spine within the range of osteopenia. Bone mineral density of the left femoral neck within the range of osteopenia. Reviewed, Interpreted and Dictated by Jesse Pearson MD Transcribed by Rosa Lindsey Authenticated and [facility]
== END 2023-11-06 23:59 ==
LOC: RAD 09:15
PROVIDERS: PCP Internal Medicine; Visit Provider Internal Medicine
DX: E55.9 Vitamin D deficiency, unspecified (principal); M85.89 Other specified disorders of bone density and structure, multiple sites
CPT/HCPCS: 77080

== ENCOUNTER 2023-11-10 20:45 | Outpatient (CLI) | payer BC, SELFPAY ==
[2023-11-10 20:17] LABS: 25-OH Vitamin D, Total 18.4 ng/mL (30-100)
== END 2023-11-10 23:59 ==
LOC: LAB.DROPOF 20:45
PROVIDERS: PCP Internal Medicine; Visit Provider Internal Medicine
DX: E55.9 Vitamin D deficiency, unspecified (principal)
CPT/HCPCS: 82306

== ENCOUNTER 2023-11-12 09:34 | Outpatient (CLI) | payer BC, SELFPAY ==
--- NOTE | 2023-11-12 09:34 | US_ITS ---
PROCEDURE: US TRANSVAGINAL CLINICAL INDICATION: endometriosis COMPARISON: US US TRANSVAGINAL from 11/05/2022 FINDINGS: Transvaginal sonographic images of the pelvis were obtained. UTERUS: 7.7 cm x 7.2cmx 5.0cm retroverted with a combined endometrial thickness of 10.2mm. On the right side of the uterus there is a fibroid measuring 4.7 cm x 4.3 cm x 4.2 cm. There are several nabothian cysts in the cervix the largest of which measures 1.9 cm. LEFT OVARY: 4.3cmx2.5cmx2.7cm with a volume of 15.1ml. There are multiple follicles in the left ovary the largest of which measures 2.1 cm. RIGHT OVARY: 3.4cmx 1.8 cmx2.3cm with a volume of 7.1ml. Multiple small follicles in the right ovary consistent with polycystic ovary. Both ovaries are seen and appear normal. Doppler flow to both ovaries are seen. There is no fluid in the cul-de-sac. IMPRESSION: 1. Retroverted uterus normal in shape and size with a normal endometrium. 2. There are multiple nabothian cysts in the cervix. 3. There is a fibroid on the right side of the uterus measuring 4.7 cm. This has enlarged by approximately 1 cm in the last year. 4. Both left and right ovaries appear polycystic. There is a follicle measuring 2.1 cm on the left ovary. 5. No fluid in the cul-de-sac. Dictated by: Cliff Rojas MD 11/12/2023 14:31 Cliff Rojas MD in [place] 11/12/2023 14:31
== END 2023-11-12 23:59 ==
LOC: RAD 09:34
PROVIDERS: PCP Internal Medicine; Visit Provider Obstetrics & Gynecology
DX: N80.9 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, unspecified (principal)
CPT/HCPCS: 76830

== ENCOUNTER 2024-01-27 09:59 | Outpatient (CLI) | payer BC, SELFPAY ==
[2024-01-27 10:35] LABS: Basophils # 0.1 K/mm3 (0-0.2); Basophils % 0.7 % (0.1-2.0); Eosinophils # 0.2 K/mm3 (0.0-0.4); Eosinophils % 2.3 % (0.1-12.0); Hemoglobin 15.8 g/dL (12.2-16.2); Lymphocytes # 2.5 K/mm3 (0.7-4.5); Lymphocytes % 37.3 % (10-50); Mean Corpuscular HGB Conc 33.6 g/dL (31.8-35.4); Mean Corpuscular Hemoglobin 33.4 pg (27.0-31.2); Mean Corpuscular Volume 99.2 fl (81-99); Mean Platelet Volume 8.9 fl (7.4-10.4); Monocytes # 0.3 K/mm3 (0.1-1.0); Neutrophils # 3.6 K/mm3 (1.8-7.8); Neutrophils % 54.6 % (37.0-80.0); Platelet Count 209 K/mm3 (142-424); Red Blood Count 4.74 M/mm3 (4.20-5.40); Red Cell Distribution Width 13.8 % (11.5-17.5); White Blood Count 6.6 K/mm3 (4.8-10.8)
[2024-01-27 10:54] LABS: Chloride 109 mmol/L (98-107); Sodium 138 mmol/L (136-145)
[2024-01-27 10:55] LABS: Potassium 4.3 mmoL/L (3.5-5.1)
[2024-01-27 10:57] LABS: Alanine Aminotransferase 88 U/L (12-78); Albumin Level 3.8 g/dl (3.5-5.0); Albumin/Globulin Ratio 1.4 (1.1-1.8); Alkaline Phosphatase 88 U/L (38-126); Anion Gap 10.3 mEq/L (5-15); Aspartate Amino Transferase 51 U/L (14-36); Bilirubin,Total 0.6 mg/dl (0.2-1.3); Blood Urea Nitrogen 13 mg/dl (7-17); Calcium 9.4 mg/dl (8.4-10.2); Carbon Dioxide 23 mmol/L (22.0-30.0); Estimated Glomerular Filt Rate 114 ml/min (>60); GFR (African American) 138 ML/MIN (>60); Globulin 2.7 g/dL (1.3-3.2); Glucose 115 mg/dl (74-100); Total Protein,Serum 6.5 g/dl (6.3-8.2)
[2024-01-27 11:27] LABS: INR 0.93 (0.9-1.1); Prothrombin Time 10.1 seconds (10.1-12.5)
[2024-01-28 10:42] LABS: HIV Screen 4th Generation wRfx Non Reactive (Non Reactive); Hep A Ab, Total Positive (Negative); Hep B Core Ab, Total Negative (Negative); Hep B Surface Ab, Qual Reactive (.)
[2024-01-30 00:06] LABS: HCV Genotype Charge YES; HCV RNA (International Units) 20100000 IU/mL (.); Hepatitis C Genotype 1a (.)
[2024-02-02 08:22] LABS: Hepatitis B Surface Antigen Negative
[2024-02-02 08:23] LABS: Hepatitis C Antibody Reactive
[2024-02-02 08:30] LABS: Alpha 2-Macroglobulins, Qn 247; Fibrosis Score 0.21; Fibrosis Stage F0-NO FIBROSIS; Haptoglobin 85; Necroinflammat Activity Grade A1-A2; Necroinflammat Activity Score 0.47
[2024-02-02 08:31] LABS: ALT (SGPT) P5P 87; Apolipoprotein A-1 146; Bilirubin, Total 0.3; GGT 70
== END 2024-01-27 23:59 | disposition home or self-care (01) ==
LOC: LAB 09:59
PROVIDERS: PCP Internal Medicine; Visit Provider Nurse Practitioner Family
DX: B19.20 Unspecified viral hepatitis C without hepatic coma (principal)
CPT/HCPCS: 36415; 80053; 81596; 85025; 85610; 86703; 86704; 86706; 86708; 87340; 87380; 87522; 87902; G0432

== ENCOUNTER 2024-02-16 22:24 | Outpatient (CLI) | payer BC, SELFPAY ==
[2024-02-16 23:40] LABS: 25-OH Vitamin D, Total 70.3 ng/mL (30-100)
== END 2024-02-16 23:59 | disposition home or self-care (01) ==
LOC: LAB.DROPOF 22:25
PROVIDERS: PCP Internal Medicine; Visit Provider Internal Medicine
DX: E55.9 Vitamin D deficiency, unspecified (principal)
CPT/HCPCS: 82306

== ENCOUNTER 2024-05-23 16:20 | Outpatient (CLI) | payer BC, SELFPAY ==
--- NOTE | 2024-05-23 16:23 | XR_ITS ---
PROCEDURE INFORMATION: Exam: XR Right Hand Exam date and time: 05/23/2024 4:29 PM Age: 34 years old Clinical indication: Pain; Hand; Right; Additional info: Injury TECHNIQUE: Imaging protocol: Radiologic exam of the right hand. Views: 3 or more views. COMPARISON: No relevant prior studies available. FINDINGS: Bones/joints: Normal. Soft tissues: Normal. IMPRESSION: No evidence of acute osseous injury.
== END 2024-05-23 23:59 | disposition home or self-care (01) ==
LOC: RAD 16:21
PROVIDERS: PCP Internal Medicine; Visit Provider Internal Medicine
DX: M25.531 Pain in right wrist (principal); S69.91XA Unspecified injury of right wrist, hand and finger(s), initial encounter
CPT/HCPCS: 73130

== ENCOUNTER 2024-06-14 16:06 | Emergency (ER) | payer BC, SELFPAY ==
[2024-06-14 16:07] VITALS: BP 130/86; PULSE 110; RESP 16; TEMP 36.8; O2SAT 96; BMI 30.2
--- NOTE | 2024-06-14 16:11 | ED_ITS ---
Discharge Plan Disposition Patient Disposition: Home, Self-Care Condition: Good Prescriptions Prescriptions: New mupirocin 2 % ointment 1 applic topical BID 7 Days Qty: 22 0RF No Action fluoxetine 10 mg capsule 10 mg PO DAILY 90 Days Qty: 90 4RF oxycodone-acetaminophen [Percocet] 7.5-325 mg tablet 1 tab PO QID Qty: 120 0RF dextroamphetamine-amphetamine [Adderall] 20 mg tablet 20 mg PO BID 30 Days Qty: 60 0RF Rx Instructions: administer doses at least 4-6 hours apart oxycodone-acetaminophen 7.5-325 mg tablet 1 tab PO QID PRN (Reason: pain) Qty: 120 0RF oxycodone-acetaminophen 7.5-325 mg tablet 1 tab PO QID PRN (Reason: pain) Qty: 120 0RF alendronate 10 mg tablet 10 mg PO DAILY 90 Days Qty: 90 2RF cholecalciferol (vitamin D3) 125 mcg (5,000 unit) capsule 125 mcg PO DAILY 90 Days Qty: 90 4RF Referrals Follow up/Referrals: Xochilt Lassiter MD [Referring] - See instructions Juan Torres DO [Primary Care Provider] - See instructions Activity Restrictions/Add. Instructions Additional Instructions/Restrictions: Follow-up with your PCP within 48 hours for wound check. I have referred you to dermatology. Please call in the morning to make an appointment. Return to ER for any worsening signs or symptoms as needed. Clinical Impressions Clinical Impression: Abscess of right thigh Cellulitis Qualifiers: Site of cellulitis: extremity Site of cellulitis of extremity: lower extremity Laterality: right Qualified Code(s): L03.115 - Cellulitis of right lower limb Instructions Patient Instructions: DI for Incision and Drainage of a Skin Abscess, DI for Skin Abscess Print Language Print Language: Upper Sorbian Discharge ED Provider: Gabriel Rizzo General Adult HPI <SUSAN Leal - Last Filed: 06/14/24 17:35> General Chief complaint: Skin/Abscess/Foreign Body Stated complaint: sent by Dr Torres for Right leg abscess Time Seen by Provider: 06/14/24 16:11 History of Present Illness HPI narrative: Patient presents for evaluation of a right posterior upper thigh abscess. Patient has a history of hidradenitis suppurativa and has had multiple cutaneous abscesses several which were required operative incision and drainage as well as some excision of the left groin area due to the same. Patient presents with 6 days history of a right upper posterior thigh abscess. She has not sought treatment before today. She saw her PCP who felt it was too complex for them in the office and sent her to the ER for further evaluation. She reports fever and feeling unwell but no chest pain shortness of breath hemoptysis hematochezia melena vomiting or diarrhea. She is not intolerant of oral intake. Related Data Previous Rx's ?Medication ?Instructions ?Recorded alendronate 10 mg tablet 10 mg PO DAILY 90 days #90 tabs 11/09/23 cholecalciferol (vitamin D3) 125 125 mcg PO DAILY 90 days #90 caps 11/11/23 mcg (5,000 unit) capsule fluoxetine 10 mg capsule 10 mg PO DAILY 90 days #90 caps 05/12/24 oxycodone-acetaminophen 7.5 mg-325 1 tab PO QID #120 tabs 05/12/24 mg tablet (Percocet) dextroamphetamine-amphetamine 20 20 mg PO BID 30 days #60 tabs 05/16/24 mg tablet (Adderall) oxycodone-acetaminophen 7.5 mg-325 1 tab PO QID PRN pain #120 tabs 05/16/24 mg tablet oxycodone-acetaminophen 7.5 mg-325 1 tab PO QID PRN pain #120 tabs 05/16/24 mg tablet mupirocin 2 % topical ointment 1 applic topical BID 7 days #22 06/14/24 grams Allergies Allergy/AdvReac Type Severity Reaction Status Date / Time bacitracin Allergy Mild Hives Verified 06/14/24 15:42 [From Neosporin ([id number])] neomycin Allergy Mild Hives Verified 06/14/24 15:42 [From Neosporin ([id number])] polymyxin B Allergy Mild Hives Verified 06/14/24 15:42 [From Neosporin (mww-nzn-[id number])] sulfamethoxazole Allergy Mild Hives Verified 06/14/24 15:42 [From BACTRIM] trimethoprim [From BACTRIM] Allergy Mild Hives Verified 06/14/24 15:42 bupropion [From Wellbutrin] AdvReac Verified 06/14/24 15:42 REPLACED BY [facility] <SUSAN Leal - Last Filed: 06/14/24 17:35> REPLACED BY [facility] Disclaimer: The information contained in this section may have been updated after the patient was seen, as this information can be updated by other users. Medical History Patient desires Dyspareunia Osteoporosis Menorrhagia History of ovarian cyst PCOS (polycystic ovarian syndrome) She does have an OB patient educator that she is following with for this. Uterine fibroid 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 Mitral valve prolapse [facility] current use of therapeutic drug Pelvic pain Surgical History History of surgery on upper extremity History of tonsillectomy History of cholecystectomy History of D&C Family History Other Cancer Diabetes Heart attack Hypertension Multiple sclerosis Social History Smoking Status: Current every day smoker tobacco type: cigarettes packs per day: 1 and e-cigarettes second hand exposure: Yes alcohol intake: never counseling provided: none substance use type: former substance user, heroin and opiates current occupational status: other Travel in the last 8 weeks: None household members: family housing: house 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 current occupational exposures/hazards: No caffeine: Yes (Mountain Dew, Coffee) <SUSAN Leal - Last Filed: 06/14/24 17:35> ROS Obtained: Yes Systems reviewed as appropriate & no additional complaints except as documented Physical Exam <SUSAN Leal - Last Filed: 06/14/24 17:35> General General appearance: alert and in no apparent distress Neck Neck exam: Present lymphadenopathy Respiratory Respiratory exam: Present normal lung sounds bilaterally Cardiovascular Cardiovascular exam: Present regular rate Neurological Exam Neurological exam: Present alert, oriented X3 and CN II-XII intact Medical Decision Making <SUSAN Leal - Last Filed: 06/14/24 17:35> Medical Records Medical records reviewed: Yes I reviewed the patient's medical records. [place] Inquiry Pt receiving controlled substance: No Vital Signs: 06/14/24 16:07 06/14/24 17:33 Temperature 98.2 F Temperature Source Oral Pulse Rate 95 H Pulse Rate [Radial] 110 H Respiratory Rate 16 Blood Pressure 117/92 H Blood Pressure [Right Arm] 130/86 Blood Pressure Mean [Right Arm] 100 Blood Pressure Source [Right Arm] Automatic Cuff Blood Pressure Position [Right Arm] Sitting 02 Sat by Pulse Oximetry 96 98 Oxygen Delivery Method Room Air Lab Data Lab results reviewed: Yes I reviewed the patient's lab results. Lab Results 06/14/24 16:28: WBC 10.1, RBC 4.37, Hgb 14.4, Hct 43.8, MCV 100.2 H, MCH 32.9 H, MCHC 32.9, RDW 14.1, Plt Count 262, MPV 9.0, Neut % (Auto) 63.1, Lymph % (Auto) 30.8, [place] % (Auto) 3.8, Eos % (Auto) 1.5, Baso % (Auto) 0.8, Neut # (Auto) 6.3, Lymph # (Auto) 3.1, [place] # (Auto) 0.4, Eos # (Auto) 0.2, Baso # (Auto) 0.1, PT 10.2, INR 0.90, Sodium 137, Potassium 3.9, Chloride 107, Carbon Dioxide 24, Anion Gap 9.9, BUN 20 H, Creatinine 0.80, Estimated Creat Clear 112, Estimated GFR 82, Est GFR ( Amer) 99, Glucose 109 H, Calcium 9.0, Total Bilirubin 0.6, AST 32, ALT 46, Alkaline Phosphatase 104, Total Protein 7.5, Albumin 4.3, Globulin 3.2, Albumin/Globulin Ratio 1.3, Procalcitonin 0.050, Serum HCG, Qual Negative 06/14/24 16:28 06/14/24 16:28 Orders (Tests/Meds): ED MEDICATIONS Discontinued Medications Generic Name Dose Route Start Last Admin Trade Name Freq PRN Reason Stop Dose Admin Acetaminophen 1,000 mg 06/14/24 16:11 06/14/24 16:32 Acetaminophen 1,000mg/100ml Vial IV 06/14/24 16:12 1,000 mg ONCE ONE Administration Lactated Ringer's 1,000 mls @ 999 mls/hr 06/14/24 16:11 06/14/24 16:32 Lactated Ringer's 1000 Ml Bag IV 06/14/24 17:11 999 mls/hr .Q1H1M ONE Administration Dalbavancin 1,500 mg/ Dextrose 250 mls @ 500 mls/hr 06/14/24 17:03 06/14/24 17:31 IV 06/14/24 17:04 500 mls/hr ONCE ONE Administration Ketorolac Tromethamine 15 mg 06/14/24 16:11 06/14/24 16:32 Ketorolac 30mg/Ml Vial IV 06/14/24 16:12 15 mg ONCE ONE Administration Lidocaine/Epinephrine 20 ml 06/14/24 16:11 06/14/24 16:36 Lidocaine 1% W/Epi 1:100,000 20ml Vial SQ 06/14/24 16:12 20 ml ONCE ONE Administration ORDERS Category Date Time Status POCUS Point of Care (ER Only) Stat Exams 06/14/24 16:18 Completed CBC w/Auto Diff [Complete Blood Count Auto Diff] Stat Lab 06/14/24 16:28 Completed CMP [Comprehensive Metabolic Panel] Stat Lab 06/14/24 16:28 Completed HCG Qualitative, Serum Stat Lab 06/14/24 16:28 Completed INR [Prothrombin Time INR] Stat Lab 06/14/24 16:28 Completed Procalcitonin Stat Lab 06/14/24 16:28 Completed Blood Culture Stat Micro 06/14/24 16:37 Received Wound Culture and Gram Stain Stat Micro 06/14/24 17:00 Received Medical Decision Narrative: In summary patient is a 34-year-old female who presents to the emergency department for evaluation of right thigh abscess. Patient is normotensive tachycardic on arrival at 110 upon arrival, and afebrile. Physical exam is remarkable for an area of erythema and cellulitis of the right proximal posterior thigh approximately 15 cm with a central area of induration and fluctuance of approximately 5 cm in circumference at the center. Differential diagnosis includes superficial abscess versus deep abscess versus complex soft tissue infection. Initial workup will be conducted with hematologic labs POCUS blood cultures. Initial interventions include crystalloid bolus Toradol Tylenol. Initial workup reviewed by me shows that her hematologic labs are nonactionable, POCUS reveals a small area of fluid collection with no evidence of gas-forming or deep space infection. Upon repeat evaluation patient was I indeed with local anesthetic and a scant amount of pus of approximately 3 mm was expressed. Wound was packed and covered after wound culture. Given this patient is appropriate for discharge with Dalvance given in the emergency department and close follow-up with her PCP within 48 hours. I have also referred her to dermatology for ongoing management of her hidradenitis. <Gabriel Rizzo MD - Last Filed: 06/14/24 17:49> Vital Signs: 06/14/24 16:07 06/14/24 17:33 Temperature 98.2 F Temperature Source Oral Pulse Rate 95 H Pulse Rate [Radial] 110 H Respiratory Rate 16 Blood Pressure 117/92 H Blood Pressure [Right Arm] 130/86 Blood Pressure Mean [Right Arm] 100 Blood Pressure Source [Right Arm] Automatic Cuff Blood Pressure Position [Right Arm] Sitting 02 Sat by Pulse Oximetry 96 98 Oxygen Delivery Method Room Air Lab Data Lab Results 06/14/24 16:28: WBC 10.1, RBC 4.37, Hgb 14.4, Hct 43.8, MCV 100.2 H, MCH 32.9 H, MCHC 32.9, RDW 14.1, Plt Count 262, MPV 9.0, Neut % (Auto) 63.1, Lymph % (Auto) 30.8, [place] % (Auto) 3.8, Eos % (Auto) 1.5, Baso % (Auto) 0.8, Neut # (Auto) 6.3, Lymph # (Auto) 3.1, [place] # (Auto) 0.4, Eos # (Auto) 0.2, Baso # (Auto) 0.1, PT 10.2, INR 0.90, Sodium 137, Potassium 3.9, Chloride 107, Carbon Dioxide 24, Anion Gap 9.9, BUN 20 H, Creatinine 0.80, Estimated Creat Clear 112, Estimated GFR 82, Est GFR ( Amer) 99, Glucose 109 H, Calcium 9.0, Total Bilirubin 0.6, AST 32, ALT 46, Alkaline Phosphatase 104, Total Protein 7.5, Albumin 4.3, Globulin 3.2, Albumin/Globulin Ratio 1.3, Procalcitonin 0.050, Serum HCG, Qual Negative Orders (Tests/Meds): ED MEDICATIONS Discontinued Medications Generic Name Dose Route Start Last Admin Trade Name Freq PRN Reason Stop Dose Admin Acetaminophen 1,000 mg 06/14/24 16:11 06/14/24 16:32 Acetaminophen 1,000mg/100ml Vial IV 06/14/24 16:12 1,000 mg ONCE ONE Administration Lactated Ringer's 1,000 mls @ 999 mls/hr 06/14/24 16:11 06/14/24 16:32 Lactated Ringer's 1000 Ml Bag IV 06/14/24 17:11 999 mls/hr .Q1H1M ONE Administration Dalbavancin 1,500 mg/ Dextrose 250 mls @ 500 mls/hr 06/14/24 17:03 06/14/24 17:31 IV 06/14/24 17:04 500 mls/hr ONCE ONE Administration Ketorolac Tromethamine 15 mg 06/14/24 16:11 06/14/24 16:32 Ketorolac 30mg/Ml Vial IV 06/14/24 16:12 15 mg ONCE ONE Administration Lidocaine/Epinephrine 20 ml 06/14/24 16:11 06/14/24 16:36 Lidocaine 1% W/Epi 1:100,000 20ml Vial SQ 06/14/24 16:12 20 ml ONCE ONE Administration ORDERS Category Date Time Status POCUS Point of Care (ER Only) Stat Exams 06/14/24 16:18 Completed CBC w/Auto Diff [Complete Blood Count Auto Diff] Stat Lab 06/14/24 16:28 Completed CMP [Comprehensive Metabolic Panel] Stat Lab 06/14/24 16:28 Completed HCG Qualitative, Serum Stat Lab 06/14/24 16:28 Completed INR [Prothrombin Time INR] Stat Lab 06/14/24 16:28 Completed Procalcitonin Stat Lab 06/14/24 16:28 Completed Blood Culture Stat Micro 06/14/24 16:37 Received Wound Culture and Gram Stain Stat Micro 06/14/24 17:00 Received Medical Decision Narrative: In summary patient is a 34-year-old female who presents to the emergency department for evaluation of right thigh abscess. Patient is normotensive tachycardic on arrival at 110 upon arrival, and afebrile. Physical exam is remarkable for an area of erythema and cellulitis of the right proximal posterior thigh approximately 15 cm with a central area of induration and fluctuance of approximately 5 cm in circumference at the center. Differential diagnosis includes superficial abscess versus deep abscess versus complex soft tissue infection. Initial workup will be conducted with hematologic labs POCUS blood cultures. Initial interventions include crystalloid bolus Toradol Tylenol. Initial workup reviewed by me shows that her hematologic labs are nonactionable, POCUS reveals a small area of fluid collection with no evidence of gas-forming or deep space infection. Upon repeat evaluation patient was I indeed with local anesthetic and a scant amount of pus of approximately 3 mm was expressed. Wound was packed and covered after wound culture. Given this patient is appropriate for discharge with Dalvance given in the emergency department and close follow-up with her PCP within 48 hours. I have also referred her to dermatology for ongoing management of her hidradenitis. I independently examined and interviewed patient. States this has been going on for a few days at this point. States that she has been feeling febrile, no objective temperatures have been measured. Similar things in the past, have needed surgical incision and drainage. Pain is 10 out of 10, does not radiate, burning and made worse with application of pressure and sitting. Made better with laying on her side. Bedside [id number] ultrasound independently interpreted and patient has 1.8 x 1.4 cm abscess with surrounding cellulitis on her posterior right thigh. Erythematous and indurated with exquisite tenderness on sonographic exam. I feel is most consistent with uncomplicated abscess, likely secondary to MRSA. Labs independently interpreted and patient without leukocytosis, negative lactate, unremarkable hematologic workup overall. Patient appropriate candidate for dalbavancin and outpatient management. Decolonization protocol was also discussed with patient, she voiced her understanding. Sent home with chlorhexidine. I was consulted by the PATRICIA, and we discussed the complexity of the problems being addressed. I approved the treatment and management plan for this patient's care in the Emergency Department, thus performing a substantive portion of the medical decision making. Gabriel Rizzo MD Procedures <SUSAN Leal - Last Filed: 06/14/24 17:35> Abscess I/D Site: lower extremity Side (if applicable): right Local Anesthetic: lidocaine 1% and with epi Amount of anesthesia used (mL): 10 Technique: incised with #11 blade Amount of fluid expressed (mL): 3 Irrigation: No Packing used?: plain <Gabriel Rizzo MD - Last Filed: 06/14/24 17:49> Limited Ultrasound Indication:: Limited soft tissue ultrasound Indication: Soft tissue swelling, fluctuance Identified structures: Location: Chest x-ray right thigh Findings: 1.8 x 1.4 cm abscess with surrounding cellulitis Impression: Abscess and cellulitis posterior right thigh without subcutaneous gas. Exquisitely tender sonographic examination. Images were saved to permanent archive The study was technically adequate Soft Tissue CPT Codes: CPT Neck: 66331-64 CPT Upper extremity: 06877-75 CPT Axilla: 73074-67 CPT Chest wall: 92367-10 CPT Breast: 23587-34-GO/LT (complete), 38815-58-YG/LT (limited), CPT Upper Back: 40389-41 CPT Lower Back: 01222-95 CPT Abdominal Wall: 81990-98 CPT Pelvic Wall: 02533-94 CPT Lower Extremity: 20387-56 CPT Other Soft Tissue: 36625-40 This study was performed by me, and I personally interpreted all images/videos. Based on my clinical judgement, these images were adequate and did not necessitate further imaging. Critical Care <SUSAN Leal - Last Filed: 06/14/24 17:35> Critical Care Time Critical Care Time: No
[2024-06-14] MEDS: KETOROLAC 30MG/ML VIAL 15 MG IV (16:32)
[2024-06-14] MEDS: LACTATED RINGERS 1000ML 1,000 ML 999 ML IV (16:32)
[2024-06-14] MEDS: ACETAMINOPHEN 1,000MG/100ML VIAL 1000 MG IV (16:32)
[2024-06-14] MEDS: LIDOCAINE 1% W/EPI 1:100,000 20ML VIAL 20 ML SQ (16:36)
[2024-06-14 16:40] LABS: Basophils # 0.1 K/mm3 (0-0.2); Basophils % 0.8 % (0.1-2.0); Eosinophils # 0.2 K/mm3 (0.0-0.4); Eosinophils % 1.5 % (0.1-12.0); Hematocrit 43.8 % (37.0-47.0); Hemoglobin 14.4 g/dL (12.2-16.2); Lymphocytes # 3.1 K/mm3 (0.7-4.5); Lymphocytes % 30.8 % (10-50); Mean Corpuscular HGB Conc 32.9 g/dL (31.8-35.4); Mean Corpuscular Hemoglobin 32.9 pg (27.0-31.2); Mean Corpuscular Volume 100.2 fl (81-99); Monocytes # 0.4 K/mm3 (0.1-1.0); Monocytes % 3.8 % (1.7-9.3); Neutrophils # 6.3 K/mm3 (1.8-7.8); Neutrophils % 63.1 % (37.0-80.0); Platelet Count 262 K/mm3 (142-424); Red Blood Count 4.37 M/mm3 (4.20-5.40); Red Cell Distribution Width 14.1 % (11.5-17.5); White Blood Count 10.1 K/mm3 (4.8-10.8)
[2024-06-14 16:47] LABS: Albumin Level 4.3 g/dl (3.5-5.0); Chloride 107 mmol/L (98-107); Potassium 3.9 mmoL/L (3.5-5.1); Sodium 137 mmol/L (136-145)
[2024-06-14 16:50] LABS: Alanine Aminotransferase 46 U/L (12-78); Albumin/Globulin Ratio 1.3 (1.1-1.8); Alkaline Phosphatase 104 U/L (38-126); Anion Gap 9.9 mEq/L (5-15); Aspartate Amino Transferase 32 U/L (14-36); Bilirubin,Total 0.6 mg/dl (0.2-1.3); Blood Urea Nitrogen 20 mg/dl (7-17); Carbon Dioxide 24 mmol/L (22.0-30.0); Creatinine Clearance Estimated 112 mL/min (50-200); Estimated Glomerular Filt Rate 82 ml/min (>60); GFR (African American) 99 ML/MIN (>60); Globulin 3.2 g/dL (1.3-3.2); Prothrombin Time 10.2 seconds (10.1-12.5); Total Protein,Serum 7.5 g/dl (6.3-8.2)
[2024-06-14 16:51] LABS: Glucose 109 mg/dl (74-100)
[2024-06-14 16:52] LABS: HCG Qualitative, Serum Negative (Negative)
[2024-06-14] MEDS: DALBAVANCIN HCL 1,500 MG in DEXTROSE 5 % IN WATER 250 ML 500 MG IV (17:31)
[2024-06-14 17:33] VITALS: BP 117/92; PULSE 95; O2SAT 98
[2024-06-14 18:06] VITALS: BP 124/78; PULSE 82; RESP 16; TEMP 36.6
--- NOTE | 2024-06-15 11:07 | PC.NURSE ---
discussed wound culture with , pt given roz in ER, ntd
== END 2024-06-14 18:09 | disposition home or self-care (01) ==
PROVIDERS: Physician Assistant; Emergency Provider Emergency Medicine; PCP Internal Medicine
DX: L02.415 Cutaneous abscess of right lower limb (principal); B95.7 Other staphylococcus as the cause of diseases classified elsewhere; L73.2 Hidradenitis suppurativa; F17.210 Nicotine dependence, cigarettes, uncomplicated
CPT/HCPCS: 10060; 80053; 84145; 84703; 85025; 85610; 87040; 87070; 87077; 87186; 87205; 96361; 96374; 96375; 99284; J0131; J0875; J1885; J7060; J7120

== ENCOUNTER 2024-07-19 10:20 | Outpatient (CLI) | payer BC, SELFPAY ==
--- NOTE | 2024-07-19 10:26 | XR_ITS ---
FINAL REPORT TECHNIQUE: Chest PA & Lateral CLINICAL HISTORY: chest congestion, soa COMPARISON: 10/29/2020 FINDINGS: 2 views of the chest were performed. The heart size is normal. The mediastinum is within normal limits. There is no acute cardiopulmonary process. There are no pleural effusions. There is no pneumothorax. The bony thorax appears intact. IMPRESSION: No acute cardiopulmonary process. Reviewed, Interpreted and Dictated by Colin Schulz MD Transcribed by Laura Jimenes Authenticated and [facility]
[2024-07-19 18:31] LABS: Coronavirus 19, PCR Not Detected (NotDetected); Influenza A, PCR Not Detected (NotDetected); Influenza B, PCR Not Detected (NotDetected)
== END 2024-07-19 23:59 | disposition home or self-care (01) ==
LOC: RAD 10:21
PROVIDERS: PCP Internal Medicine; Visit Provider Internal Medicine
DX: J06.9 Acute upper respiratory infection, unspecified (principal); F17.210 Nicotine dependence, cigarettes, uncomplicated
CPT/HCPCS: 71046; 87636

== ENCOUNTER 2024-08-02 09:25 | Outpatient (CLI) | payer BC, SELFPAY ==
[2024-08-02 18:58] LABS: Chol/HDL Ratio 5.5 (1-3.5); Cholesterol 220 mg/dl (140-200); HDL Cholesterol 40 mg/dl (40-60); Triglycerides 233 mg/dl (30-150); VLDL Cholesterol 47 mg/dL (0-40)
== END 2024-08-02 23:59 | disposition home or self-care (01) ==
LOC: LAB.DROPOF 08-03 12:45
PROVIDERS: PCP Internal Medicine; Visit Provider Internal Medicine
DX: N61.1 Abscess of the breast and nipple (principal); E66.9 Obesity, unspecified; Z68.31 Body mass index [BMI] 31.0-31.9, adult
CPT/HCPCS: 80061; 87070; 87077; 87186; 87205

== ENCOUNTER 2024-09-15 16:03 | Outpatient (CLI) | payer BC, SELFPAY ==
[2024-09-15 17:11] LABS: Alanine Aminotransferase 65 U/L (12-78); Albumin Level 4.2 g/dl (3.5-5.0); Albumin/Globulin Ratio 1.7 (1.1-1.8); Alkaline Phosphatase 95 U/L (38-126); Anion Gap 8.6 mEq/L (5-15); Aspartate Amino Transferase 34 U/L (14-36); Bilirubin,Total 0.3 mg/dl (0.2-1.3); Blood Urea Nitrogen 17 mg/dl (7-17); Calcium 8.8 mg/dl (8.4-10.2); Carbon Dioxide 24 mmol/L (22.0-30.0); Chloride 109 mmol/L (98-107); Estimated Glomerular Filt Rate 114 ml/min (>60); GFR (African American) 138 ML/MIN (>60); Globulin 2.5 g/dL (1.3-3.2); Glucose 90 mg/dl (74-100); Potassium 4.6 mmoL/L (3.5-5.1); Sodium 137 mmol/L (136-145); Total Protein,Serum 6.7 g/dl (6.3-8.2)
== END 2024-09-15 23:59 | disposition home or self-care (01) ==
LOC: LAB 16:04
PROVIDERS: PCP Internal Medicine; Visit Provider Internal Medicine
DX: B18.2 Chronic viral hepatitis C (principal)
CPT/HCPCS: 36415; 80053; 87522

== ENCOUNTER 2024-09-22 14:45 | Outpatient (CLI) | payer BC, SELFPAY ==
[2024-09-22 18:59] LABS: Coronavirus 19, PCR Not Detected (NotDetected); Influenza A, PCR Not Detected (NotDetected); Influenza B, PCR Not Detected (NotDetected)
== END 2024-09-22 23:59 | disposition home or self-care (01) ==
LOC: LAB.DROPOF 09-23 10:09
PROVIDERS: PCP Family Medicine; Visit Provider Family Medicine
DX: J06.9 Acute upper respiratory infection, unspecified (principal)
CPT/HCPCS: 87636

== ENCOUNTER 2024-11-17 13:28 | Outpatient (CLI) | payer BC, SELFPAY ==
--- NOTE | 2024-11-17 13:33 | XR_ITS ---
FINAL REPORT CLINICAL HISTORY: pain after fall on 11/15 FINDINGS: SACRUM AND COCCYX 2 views were obtained. There is no acute fracture or dislocation. Visualized joint spaces are normally aligned. Soft tissues are unremarkable. IMPRESSION: No acute bony abnormality. Reviewed, Interpreted and Dictated by eJsse Pearson MD Transcribed by Jacque Camara Authenticated and [facility]
--- NOTE | 2024-11-17 13:33 | XR_ITS ---
FINAL REPORT CLINICAL HISTORY: pain after fall on 11/15 FINDINGS: LUMBAR SPINE AP and lateral views were obtained. There is no acute fracture or malalignment. Vertebrae are normal height. Prevertebral soft tissues are unremarkable. IMPRESSION: No acute bony abnormality. Reviewed, Interpreted and Dictated by Jesse Pearson MD Transcribed by Jacque Camara Authenticated and [facility]
--- NOTE | 2024-11-17 13:52 | XR_ITS ---
FINAL REPORT CLINICAL HISTORY: pain after fall on 11/15 FINDINGS: RIGHT HIP Two views of the right hip demonstrate no acute fracture or dislocation. The joint spaces appear normal. The visualized bony structures are well aligned. No soft tissue abnormality is seen. IMPRESSION: No acute bony abnormality. Reviewed, Interpreted and Dictated by Jesse Pearson MD Transcribed by Jacque Camara Authenticated and [facility]
--- NOTE | 2024-11-17 13:56 | XR_ITS ---
FINAL REPORT CLINICAL HISTORY: pain after fall on 11/15 FINDINGS: LEFT HIP 2 views of the left hip are obtained. There is no acute fracture or dislocation. Calcification is seen along the lateral acetabular roof which could represent joint body, old fracture fragment or labral calcification visualized joint spaces are normally aligned. There is no acute soft tissue abnormality. IMPRESSION: Abnormality along the lateral acetabular roof which could represent joint body or labral calcification. No acute bony abnormality. Reviewed, Interpreted and Dictated by Jesse Pearson MD Transcribed by Jacque Camara Authenticated and [facility]
== END 2024-11-17 23:59 | disposition home or self-care (01) ==
LOC: RAD 13:30
PROVIDERS: PCP Internal Medicine; Visit Provider Internal Medicine
DX: M54.9 Dorsalgia, unspecified (principal); W19.XXXD Unspecified fall, subsequent encounter; Y92.009 Unspecified place in unspecified non-institutional (private) residence as the place of occurrence of the external cause
CPT/HCPCS: 72100; 72220; 73502

== ENCOUNTER 2025-02-01 20:28 | Emergency (ER) | payer SELFPAY ==
[2025-02-01 21:00] VITALS: BP 133/79; PULSE 97; O2SAT 96
--- NOTE | 2025-02-01 21:04 | HMH.EDGENADL ---
Discharge Plan Disposition Patient Disposition: Home, Self-Care Condition: Good Prescriptions Prescriptions: New doxycycline hyclate 100 mg capsule 100 mg PO BID 10 Days Qty: 20 0RF amoxicillin-pot clavulanate 875-125 mg tablet 1 tab PO BID Qty: 20 0RF No Action fluoxetine 10 mg capsule 20 mg PO DAILY 90 Days Qty: 180 4RF cholecalciferol (vitamin D3) 125 mcg (5,000 unit) capsule 125 mcg PO DAILY 90 Days Qty: 90 3RF alendronate 10 mg tablet See Rx Instructions .ROUTE .COMPLEX Qty: 90 3RF Dose Instruction: TAKE ONE TABLET BY MOUTH ONCE A DAY Rx Instructions: TAKE ONE TABLET BY MOUTH ONCE A DAY dextroamphetamine-amphetamine [Adderall] 20 mg tablet 20 mg PO BID 60 Days Qty: 120 0RF Rx Instructions: administer doses at least 4-6 hours apart oxycodone-acetaminophen [Percocet] 7.5-325 mg tablet 1 tab PO QID Qty: 120 0RF Referrals Follow up/Referrals: Julian Valdovinos APRN [Primary Care Provider] - See instructions Activity Restrictions/Add. Instructions Additional Instructions/Restrictions: Please call in the morning to make your [facility] appointment. Please take your antibiotics till they are gone. I have sent them into your pharmacy. If you have any worsening new symptoms follow-up with your [facility] or return to the ER as needed Clinical Impressions Clinical Impression: Abscess of Bartholin gland Instructions Patient Instructions: DI for Urinary Tract Infection (UTI), DI for Urinary Tract Infection in Children Print Language Print Language: Yoruba Discharge ED Provider: Giovanni Lujan General Adult HPI <SUSAN Leal - Last Filed: 02/01/25 21:47> General Chief complaint: Urogenital-Female Stated complaint: pelvic pain , spot on vaginal area Time Seen by Provider: 02/01/25 20:31 History of Present Illness HPI narrative: Patient presents for evaluation of right vulvar pain. Patient states that she started having pain in her bulb about midday yesterday. But she did not know what could be the cause. However when she woke up this morning the lower portion of her vulva was swollen and painful. It is continued to be more swollen and painful throughout the day and she presented to the emergency department valuation. She denies fever chills hemoptysis hematochezia melena nausea vomiting diarrhea abdominal pain vaginal discharge or dysuria. Related Data Previous Rx's ?Medication ?Instructions ?Recorded fluoxetine 10 mg capsule 20 mg (2 x 10 mg) PO DAILY 90 days 12/07/24 #180 caps alendronate 10 mg tablet See Rx Instructions .Route 01/24/25 .COMPLEX #90 tabs cholecalciferol (vitamin D3) 125 125 mcg PO DAILY 90 days #90 caps 01/24/25 mcg (5,000 unit) capsule dextroamphetamine-amphetamine 20 20 mg PO BID 60 days #120 tabs 01/24/25 mg tablet (Adderall) oxycodone-acetaminophen 7.5 mg-325 1 tab PO QID #120 tabs 01/24/25 mg tablet (Percocet) amoxicillin 875 mg-potassium 1 tab PO BID #20 tabs 02/01/25 clavulanate 125 mg tablet doxycycline hyclate 100 mg capsule 100 mg PO BID 10 days #20 caps 02/01/25 Allergies Allergy/AdvReac Type Severity Reaction Status Date / Time bacitracin (From Neosporin Allergy Mild Hives Verified 02/01/25 21:29 ([id number])) neomycin (From Neosporin Allergy Mild Hives Verified 02/01/25 21:29 ([id number])) polymyxin B (From Neosporin Allergy Mild Hives Verified 02/01/25 21:29 ([id number])) sulfamethoxazole (From Allergy Mild Hives Verified 02/01/25 21:29 BACTRIM) trimethoprim (From BACTRIM) Allergy Mild Hives Verified 02/01/25 21:29 bupropion (From Wellbutrin) AdvReac Unknown Verified 02/01/25 21:29 allergy reaction [facility] <SUSAN Leal - Last Filed: 02/01/25 21:47> [facility] Disclaimer: The information contained in this section may have been updated after the patient was seen, as this information can be updated by other users. Medical History Patient desires Dyspareunia Osteoporosis Menorrhagia History of ovarian cyst PCOS (polycystic ovarian syndrome) Uterine fibroid 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 Mitral valve prolapse senior care current use of therapeutic drug Pelvic pain Surgical History History of surgery on upper extremity History of tonsillectomy History of cholecystectomy History of D&C Family History Other Cancer Diabetes Heart attack Hypertension Multiple sclerosis Social History Smoking Status: Current every day smoker tobacco type: cigarettes packs per day: 1 and e-cigarettes second hand exposure: Yes alcohol intake: never counseling provided: none substance use type: former substance user, heroin and opiates current occupational status: other Travel in the last 8 weeks?: None household members: family housing: house 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 current occupational exposures/hazards: No caffeine: Yes (Mountain Dew, Coffee) Have you lived/traveled outside [place] in past 30 days?: No Contact w/someone who lives/traveled outside [place] past 30 days?: No Exposure to someone with infectious disease in past 14 days?: No Do you have a fever (greater than 100.4 F or 38 C)?: No Have you tested positive for COVID-19?: No Exposed to someone with COVID-19 in past 14 days?: No Do you have a sore throat?: No Do you have a cough?: No Do you have any weakness?: No Do you have any diarrhea?: No Are you experiencing any unusual bleeding?: No Do you have any muscle aches/pain?: No Do you have any abdominal pain?: No Are you experiencing loss of taste or smell?: No Other Medical History Have you received the Flu Vaccine for this season: No Have you received the Pneumonia Vaccine: No <SUSAN Leal - Last Filed: 02/01/25 21:47> ROS Obtained: Yes Systems reviewed as appropriate & no additional complaints except as documented Physical Exam <SUSAN Leal - Last Filed: 02/01/25 21:47> General General appearance: alert Respiratory Respiratory exam: Present normal lung sounds bilaterally Cardiovascular Cardiovascular exam: Present regular rate Neurological Exam Neurological exam: Present alert and oriented X3 Medical Decision Making <SUSAN Leal - Last Filed: 02/01/25 21:47> Medical Records Medical records reviewed: Yes I reviewed the patient's medical records. Screening: Per USPSTF and CDC recommendations, given the prevalence of disease in our region, it is our hospital?s policy to screen for HIV and viral Hepatitis for all patients aged 18 and over and those with ongoing risk factors. [place] Inquiry Pt receiving controlled substance: No Vital Signs: 02/01/25 21:00 02/01/25 21:23 02/01/25 22:44 Temperature 98.5 F 98.3 F Temperature Source Oral Pulse Rate 97 H 66 Respiratory Rate 18 20 Blood Pressure 133/79 138/77 Blood Pressure [Right Arm] 135/79 Blood Pressure Mean [Right Arm] 97 02 Sat by Pulse Oximetry 96 95 Oxygen Delivery Method Room Air Room Air Orders (Tests/Meds): ED MEDICATIONS Discontinued Medications Generic Name Dose Route Start Last Admin Trade Name Freq PRN Reason Stop Dose Admin Amoxicillin/Clavulanate Potassium 1 each 02/01/25 21:32 02/01/25 21:45 Amoxicillin/Clavulanate Potassium 875/125mg Tablet PO 02/01/25 21:33 1 each ONCE ONE Administration Doxycycline Hyclate 100 mg 02/01/25 21:36 02/01/25 21:45 Doxycycline Hycl 100 Mg Tablet PO 02/01/25 21:37 100 mg ONCE ONE Administration Lidocaine/Epinephrine 10 ml 02/01/25 21:28 02/01/25 21:35 Lidocaine 1% W/Epi 1:100,000 20ml Vial SQ 02/01/25 21:29 10 ml ONCE ONE Administration Oxycodone HCl 5 mg 02/01/25 21:28 02/01/25 21:35 Oxycodone 5mg Immediate Release Tablet PO 02/01/25 21:29 5 mg ONCE ONE Administration ORDERS Category Date Time Status Wound Culture and Gram Stain Stat Micro 02/01/25 22:42 Received Medical Decision Narrative: In summary patient is a 34-year-old female who presents to the emergency department for evaluation of vulvar pain. Patient is hemodynamically stable upon arrival, afebrile with a temperature of 98.5. Physical exam is remarkable for a cyst in the inferior portion of the right labia consistent with a Bartholin gland cyst. It is very hard firm and tender to palpation. She does not however have evidence of spreading cellulitis deeper invasion.. Differential diagnosis includes Bartholin gland cyst or early abscess. Initial workup was considered with labs and imaging however patient has no systemic symptoms and appears to be very local thus MATAMOROS deferred. Initial interventions include Tylenol ibuprofen and oxycodone. Had an interactive discussion with Dr. Tatum of [facility] about patient presentation MATAMOROS and management and he recommended given the size and the pain to go ahead and do incision and drainage and they will follow in clinic. Cyst incised and drained by Dr. Lujan please see his note for procedure.. Given this patient is appropriate for discharge with prescription for Doxy and Augmentin as she has a Bactrim allergy and close follow-up with [facility]. Patient to call in the morning to make her appointment. <Giovanni Lujan MD - Last Filed: 02/01/25 23:50> Vital Signs: 02/01/25 21:00 02/01/25 21:23 02/01/25 22:44 Temperature 98.5 F 98.3 F Temperature Source Oral Pulse Rate 97 H 66 Respiratory Rate 18 20 Blood Pressure 133/79 138/77 Blood Pressure [Right Arm] 135/79 Blood Pressure Mean [Right Arm] 97 02 Sat by Pulse Oximetry 96 95 Oxygen Delivery Method Room Air Room Air Orders (Tests/Meds): ED MEDICATIONS Discontinued Medications Generic Name Dose Route Start Last Admin Trade Name Freq PRN Reason Stop Dose Admin Amoxicillin/Clavulanate Potassium 1 each 02/01/25 21:32 02/01/25 21:45 Amoxicillin/Clavulanate Potassium 875/125mg Tablet PO 02/01/25 21:33 1 each ONCE ONE Administration Doxycycline Hyclate 100 mg 02/01/25 21:36 02/01/25 21:45 Doxycycline Hycl 100 Mg Tablet PO 02/01/25 21:37 100 mg ONCE ONE Administration Lidocaine/Epinephrine 10 ml 02/01/25 21:28 02/01/25 21:35 Lidocaine 1% W/Epi 1:100,000 20ml Vial SQ 02/01/25 21:29 10 ml ONCE ONE Administration Oxycodone HCl 5 mg 02/01/25 21:28 02/01/25 21:35 Oxycodone 5mg Immediate Release Tablet PO 02/01/25 21:29 5 mg ONCE ONE Administration ORDERS Category Date Time Status Wound Culture and Gram Stain Stat Micro 02/01/25 22:42 Received Medical Decision Narrative: In summary patient is a 34-year-old female who presents to the emergency department for evaluation of vulvar pain. Patient is hemodynamically stable upon arrival, afebrile with a temperature of 98.5. Physical exam is remarkable for a cyst in the inferior portion of the right labia consistent with a Bartholin gland cyst. It is very hard firm and tender to palpation. She does not however have evidence of spreading cellulitis deeper invasion.. Differential diagnosis includes labial abscess, Bartholin gland cyst or early abscess. Initial workup was considered with labs and imaging however patient has no systemic symptoms and appears to be very local thus MATAMOROS deferred. Initial interventions include Tylenol ibuprofen and oxycodone. Had an interactive discussion with Dr. Tatum of [facility] about patient presentation MATAMOROS and management and he recommended given the size and the pain to go ahead and do incision and drainage and they will follow in clinic. Cyst incised and drained by Dr. Lujan please see his note for procedure.. Given this patient is appropriate for discharge with prescription for Doxy and Augmentin as she has a Bactrim allergy and close follow-up with [facility]. Patient to call in the morning to make her appointment. PATRICIA attestation I was consulted by the PATRICIA, and we discussed the complexity of problems being addressed. I approved the treatment and management plan for this patient's care in the emergency department, thus performing a substantial portion of the medical decision making. I also evaluated and examined the patient at bedside. Physical exam consistent with a Bartholin gland abscess. Performed incision and drainage. We do not have a Word catheter available. Placed packing with a long tail for easy removal. Counseled the patient not to remove until she follows up with [facility] and to call their office first thing in the morning. Sent wound culture. Ultimately discharged in stable condition with medications as above. Giovanni Lujan MD Procedures <Giovanni Lujan MD - Last Filed: 02/01/25 23:50> Abscess I/D Site: other (Bartholin gland) Side (if applicable): right Local Anesthetic: lidocaine 1% and with epi Amount of anesthesia used (mL): 5 Technique: incised with #11 blade Irrigation: No Packing used?: plain Complications: pain Critical Care <SUSAN Leal - Last Filed: 02/01/25 21:47> Critical Care Time Critical Care Time: No
[2025-02-01 21:23] VITALS: BP 135/79; RESP 18; TEMP 36.9; O2SAT 95; BMI 30.2
[2025-02-01] MEDS: LIDOCAINE 1% W/EPI 1:100,000 20ML VIAL 10 ML SQ (21:35)
[2025-02-01] MEDS: OXYCODONE 5MG IMMEDIATE RELEASE TABLET 5 MG PO (21:35)
[2025-02-01] MEDS: AMOXICILLIN/CLAVULANATE POTASSIUM 875/125MG TABLET 1 EACH PO (21:45)
[2025-02-01] MEDS: DOXYCYCLINE HYCL 100 MG TABLET PO (21:45)
[2025-02-01 22:44] VITALS: BP 138/77; PULSE 66; RESP 20; TEMP 36.8; O2SAT 98
--- NOTE | 2025-02-02 13:18 | PC.NURSE ---
I discussed the pts final gram stain with . No change needed in treatment plan. wound culture is still pending.
== END 2025-02-01 22:45 | disposition home or self-care (01) ==
PROVIDERS: Emergency Provider Student in an Organized Health Care Education/Training Program; PCP Nurse Practitioner Family
DX: N75.1 Abscess of Bartholin's gland (principal)
CPT/HCPCS: 56420; 87070; 87077; 87186; 87205; 99284